=== PATIENT | male | born 1930 | race Caucasian/White ===

== ENCOUNTER 2017-04-02 03:36 | Emergency (ER) | payer OTHER ==
[~2017-04-02] VITALS: Ht 175.3 cm; Wt 63.6 kg
[~2017-04-02 03:36] MED LIST: AMLO-114 PO; ASPI81TA28; CHOL100010 PO; COUMADIN; DOCU1TAB6; FRRS300 PO; GLC500 PO; LISI-787 PO; NTRGSL/4 UT; OMEG10007 PO; OXYC7.5T78 PO; SOTA80TA
[2017-04-02 03:41] VITALS: Ht 175.3 cm; Wt 63.6 kg
[2017-04-02] MEDS ORDERED: SITA100T3 PO (04:14)
[2017-04-02] MEDS ORDERED: GABA-113 PO (04:14)
[2017-04-02] MEDS ORDERED: ROPI2TAB6 PO (04:14)
[2017-04-02] MEDS ORDERED: LOPE-5 PO (04:14)
[2017-04-02] MEDS ORDERED: GLC/500 PO (04:14)
[2017-04-02] MEDS ORDERED: WARF2TAB8 PO ×2 (04:14)
[2017-04-02] MEDS ORDERED: ATV/1 PO (04:14)
[2017-04-02] MEDS ORDERED: DOCU100C PO (04:14)
[2017-04-02] MEDS ORDERED: ASPI81TA28 PO (04:14)
[2017-04-02] MEDS ORDERED: NAPR1TAB9 PO (04:14)
[2017-04-02] MEDS ORDERED: METO25TA3 PO (04:14)
[2017-04-02] MEDS ORDERED: FERRTAB18 PO (04:14)
[2017-04-02] MEDS ORDERED: LSN5 PO (04:14)
[2017-04-02] MEDS ORDERED: [UNRECOGNIZED DRUG - OTHER] TD (04:14)
[2017-04-02] MEDS ORDERED: CYM/30 PO (04:14)
[2017-04-02] MEDS ORDERED: LIDO4CRE10 TD (04:14)
--- NOTE | 2017-04-02 04:18 | EMERGENCY ROOM VISIT NOTE ---
History Report prepared by Toro: Brittany Shen Under the Supervision of: Ravinder McdermottO. First contact with patient: 03:44 Chief Complaint: FALL Stated Complaint: FALL History of Present Illness The patient is a 86 year old male who presents to the Emergency Room with complaints of persistent trauma that occurred after the patient fell out of bed earlier tonight prior to arrival. The patient's states that the patient did not lose consciousness. He reports some back and neck pain, noting that he hit his head but is not experiencing much pain there. The patient is currently on Coumadin for atrial fibrillation. Source of History: patient Onset: tonight prior to arrival Position: other (global) Quality: other (fall) Timing: other (persistent) Associated Symptoms: + neck pain, + back pain Review of Systems See HPI for pertinent positives & negatives. A total of 10 systems reviewed and were otherwise negative. Past Medical & Surgical Medical Problems: (1) Aortic valve stenosis (2) Carotid artery occlusion (3) Coronary artery bypass grafts x 3 (4) Diabetes mellitus type 2 (5) Paroxysmal atrial fibrillation (6) Peripheral vascular disease Family History Patient reports no known family medical history. Social History Smoking Status: Never Smoker Smokeless Tobacco Use: No Alcohol Use: none Drug Use: none Marital Status: Housing Status: lives with significant other Occupation Status: retired Current/Historical Medications Scheduled Aspirin (Aspirin Ec), 81 MG PO QAM Docusate Sodium (Stool Softener), 100-200 MG PO BID Duloxetine HCl (Cymbalta), 30 MG PO QAM Gabapentin (Neurontin), 300 MG PO TID Iron-Vitamin C (Vitron-C), 1 TAB PO BID Lisinopril (Lisinopril), 5 MG PO QAM Metformin Hcl (Glucophage), 500 MG PO BID Metoprolol Succ (Toprol Xl) (Toprol-Xl), 25 MG PO QAM Ropinirole (Requip), 2 MG PO QPM Sitagliptin Phosphate (Januvia), 100 MG PO QAM Warfarin Sod (Jantoven), 6 MG PO 2XWK Warfarin Sod (Jantoven), 4 MG PO 4XWK Scheduled PRN Lidocaine (Anorectal) (Lidocaine), 1 APPLN TD HS PRN for Pain Loperamide Hcl (Imodium A-D), 2 MG PO DIRECTED PRN for Diarrhea Lorazepam (Ativan), 1 MG PO TID PRN for Anxiety/Agitation Naproxen (Aleve), 220 MG PO BID w/food PRN for Moderate Pain [Absorbine Jr Ex], 1 APPLN TD HS PRN for NEUROPATHY OF FEET Allergies Coded Allergies: Nortriptyline (Verified Allergy, Severe, CHEST PAIN-"BURNING FROM MID CHEST TO THROAT"., 04/02/17) Physical Exam Vital Signs Date Time Temp Pulse Resp B/P (MAP) Pulse Ox O2 Delivery O2 Flow Rate FiO2 04/02/17 07:25 187/85 04/02/17 07:15 69 16 96 04/02/17 06:46 192/89 04/02/17 06:45 69 13 97 04/02/17 05:58 73 16 92 Nasal Cannula 2.0 04/02/17 05:34 71 16 192/87 90 Room Air 04/02/17 03:57 76 16 194/93 90 Room Air 04/02/17 03:47 71 04/02/17 03:41 36.4 72 14 209/88 91 Room Air Physical Exam HEENT: Head - normocephalic and atraumatic. Pupils are equal, round, and reactive to light. Extraocular eye muscles are intact and sclera are anicteric. Ears - bilaterally patent canals with no evidence of hemotympanum. Nose - moist nasal mucosa without evidence of trauma or discharge. Mouth - moist buccal mucosa with no trauma to the teeth or signs of malocclusion. Neck: The cervical collar was temporarily removed while in-line stabilization was maintained. Pain to palpation around C2 and C3. There is no JVD or tracheal deviation. Chest: There are no signs of deformities, contusions or abrasions to the chest wall. There is no obvious crepitus or paradoxical chest rise. Heart: Regular, rate, and rhythm. There is a normal S1 and S2 with no murmurs, clicks, or gallops appreciated. Lungs: Clear to auscultation bilaterally with no wheezes, rales, or rhonchi. Abdomen: Soft, completely nontender, nondistended, with good bowel sounds. There is no sign of trauma such as contusions, abrasions or penetrations. There are no palpable pulsatile masses or hepatosplenomegaly. There is no guarding, rigidity, or rebound noted. Pelvis: Stable to rock and compression. Extremities: No obvious trauma, deformities, contusions, or edema. There are easily palpable peripheral pulses. Neuro: The patient is awake and alert and easily able to follow commands. Muscle strength is 5 out of 5 in all 4 extremities. Otherwise, neuro exam is unremarkable. Back: The entire thoracic, lumbar, and sacral spine were palpated. There are no obvious step-offs or deformities noted. There are no obvious signs of trauma such as contusions abrasions penetrations noted to the back. Medical Decision & Procedures ER Provider Diagnostic Interpretation: Radiology results as stated below per my review and the radiologist's interpretation: CT HEAD: No acute intracranial hemorrhage or mass effect. Chronic lacunar infarct right thalamus. Small region of encephalomalacia/ gliosis at left posterior frontal lobe, compatible with remote infarct. White matter hypodensities, most likely representing small vessel ischemic change. Global cerebral volume mass. Visualized paranasal sinuses and mastoid air cells are clear. CT C SPINE: Type II of the dens with posterior displacement measuring up to 6.7mm. Likely degenerative pannus posterior to the dens although components of epidural hematoma is not excluded. Combination of displacement and pannus causes moderate canal stenosis. Moderate multilevel degenerative changes. Carotid calcifications. Mild interlobular septal thickening at lung apices. Nonspecific, but correlate for CHF/fluid overload. Radiologist: Teo [id number]: Ordered Toradol Inj 60mg. Beni frias Laboratory Results 04/02/17 03:50 Test 04/02/17 03:50 Red Blood Count 3.91 M/uL (4.7-6.1) Mean Corpuscular Volume 92.1 fL (80-100) Mean Corpuscular Hemoglobin 31.5 pg (25-34) Mean Corpuscular Hemoglobin Concent 34.2 g/dl (32-36) RDW Standard Deviation 43.7 fL (36.4-46.3) RDW Coefficient of Variation 13.2 % (11.5-14.5) Mean Platelet Volume 10.0 fL (7.4-10.4) Prothrombin Time 33.3 SECONDS (9.0-12.0) Prothromb Time International Ratio 3.2 (0.9-1.1) Activated Partial Thromboplast Time 35.3 SECONDS (21.0-31.0) Partial Thromboplastin Ratio 1.4 Laboratory results per my review. Medications Administered Medications (Trade) Dose Ordered Sig/Rc Route Start Time Stop Time Status Last Admin Dose Admin Fentanyl Citrate (Fentanyl Inj) 50 mcg NOW ONCE IV 04/02/17 04:30 04/02/17 04:31 DC 04/02/17 04:30 50 MCG Hydromorphone HCl (Dilaudid Inj) 0.5 mg NOW STAT IV 04/02/17 05:51 04/02/17 05:52 DC 04/02/17 05:55 0.5 MG Procedure 0430: Ordered Fentanyl Inj 50mcg IV. 0551:Ordered Dilaudid Inj 0.5mg IV. ECG Per My Interpretation Indication: weakness Rate (beats per minute): 71 Rhythm: atrial fibrillation Findings: no acute ischemic change, no ectopy ED Course 0348: Past medical records reviewed. The patient was evaluated in room A12. A complete history and physical exam was performed. Laboratory studies were drawn as above. The patient had a CT scan of the brain and cervical spine as described above. 0430: Ordered Fentanyl Inj 50mcg IV. 0551: The patient had no relief of the pain with the above medications and I ordered Dilaudid Inj 0.5mg IV. 0554: Discussed the patient's case with Dr. Guerrero. He suggested transfer to a tertiary care center because of the fracture and displacement of the dens. 0612: Discussed the patient's case with Amber Perez. He has accepted the patient in transfer. The patient will be evaluated for further management. 0618: I reevaluated the patient and updated him and his son who is at the bedside on test findings. The patient states that he feels significantly better after the Dilaudid. He verbalized agreement of the treatment plan. Medical Decision The patient is a 86 year old male who presents to the ED with trauma secondary to a fall prior to arrival. Differential diagnosis includes intracranial hemorrhage, c-spine fracture, cervical strain, and close head injury. Laboratory results showed: I&R of 3.2, hemoglobin of 3.3, and a normal white blood cell count. This is an 86-year-old male patient who rolled out of bed and struck his head on the floor. He had no loss of consciousness. He does complain of severe posterior C-spine pain. CT scan shows evidence of a type II dens fracture with 5.7 mm of displacement posteriorly. The patient is neurologically intact. His pain in the neck is under better control with IV Dilaudid. The patient remains in a cervical collar and will be transferred by ALS ambulance to the emergency department in [place]. Medication Reconcilliation Current Medication List: was personally reviewed by me Blood Pressure Screening Patient's blood pressure: Elevated blood pressure Blood pressure disposition: Elevated BP felt to be situational Consults Time Called: 553 Consulting Physician: Dr. Guerrero Returned Call: 05 Discussed the patient's case with Dr. Guerrero. The patient will be evaluated for further management. Additional Consults: Time Called: 611 Consulted Physician: Returned Call: [phone] Additional Comments: Discussed the patient's case with Amber Perez. The patient will be evaluated for further management. Impression Primary Impression: Dens fracture Scribe Attestation The scribe's documentation has been prepared under my direction and personally reviewed by me in its entirety. I confirm that the note above accurately reflects all work, treatment, procedures, and medical decision making performed by me. Departure Information Dispostion Being Evaluated By Hospitalist Referrals Antonietta Mauricio P.A. (PCP) Forms HOME CARE DOCUMENTATION FORM, IMPORTANT VISIT INFORMATION Patient Instructions My [facility] Problem Qualifiers Primary Impression: Dens fracture Encounter type: initial encounter Fracture type: closed Qualified Codes: S12.100A - Unspecified displaced fracture of second cervical vertebra, initial encounter for closed fracture
[2017-04-02 04:20] LABS: HEMOGLOBIN 12.3 g/dL (14.0-18.0); MEAN CELL VOLUME 92.1 fL (80-100); MEAN CORPUSCULAR HEMOGLOBIN 31.5 pg (25-34); MEAN CORPUSCULAR HGB CONC 34.2 g/dl (32-36); PLATELET COUNT 217 K/uL (130-400); RED CELL DISTRIBUTION WIDTH CV 13.2 % (11.5-14.5); RED CELL DISTRIBUTION WIDTH SD 43.7 fL (36.4-46.3); WHITE BLOOD COUNT 8.17 K/uL (4.8-10.8)
[2017-04-02] MEDS ORDERED: FENTANYL CITRATE INJ 50 MCG/1 ML 2 ML VIAL IV ONE (04:30)
[2017-04-02 04:31] LABS: INR 3.2 (0.9-1.1); PTT PATIENT 35.3 SECONDS (21.0-31.0)
[2017-04-02] MEDS ORDERED: HYDROmorphone INJ 0.5 MG/0.5 ML SYR IV STA ×2 (05:51→07:41)
--- NOTE | 2017-04-02 06:46 | DIAGNOSTIC IMAGING REPORT ---
CT OF THE HEAD WITHOUT CONTRAST CLINICAL HISTORY: eval for trauma; on coumadin COMPARISON STUDY: No previous studies for comparison. TECHNIQUE: Helical axial images of the head were obtained without IV contrast. Automated exposure control was utilized for the study. A dose lowering technique was utilized adhering to the principles of ALARA. FINDINGS: No acute intracranial hemorrhage, midline shift or mass effect is present. Ventricular dilatation is due to atrophy. Basilar cisterns are patent. There are no extra-axial collections. White matter hypodensity suggests small vessel disease. There is an old lacunar infarct within the right thalamus. There is an old left frontal lobe infarct. There is no calvarial fracture. Visualized portions of the sinuses and mastoid air cells are clear. IMPRESSION: 1. No acute intracranial findings. 2. No calvarial fracture. Electronically signed by: Milton Starks M.D. 04/02/2017 6:44 AM Dictated Date/Time: 04/02/2017 6:42 AM
--- NOTE | 2017-04-02 07:31 | DIAGNOSTIC IMAGING REPORT ---
CERVICAL SPINE W/O CLINICAL HISTORY: 86 years-old Male presenting with fall; neck pain. TECHNIQUE: Multidetector CT of the cervical spine was performed without the use of intravenous contrast. IV contrast: None. A dose lowering technique was used consistent with the principles of ALARA (as low as reasonably achievable). COMPARISON: None. CT DOSE (mGy.cm): The estimated cumulative dose is 1076.27 mGy.cm. 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 The patient is edentulous. Transversely oriented fracture of the mid portion of the dens with at least 5 mm of posterior displacement of the superior fracture fragment along with the anterior arch of C1. There is resulting subluxation of the C1 to lateral masses articulation. Significant pannus formation at the atlantodental articulation, especially posteriorly. Due to the presence of calcification, this is most likely degenerative in etiology. Acute fracture and suspected degenerative change results in narrowing of the spinal canal at the level of C1. No additional acute fracture is evident. Remaining vertebral bodies demonstrate straightening of normal cervical lordosis. Vertebral body heights and alignment otherwise preserved. Intervertebral disc height loss noted at C4-5 through C6-7. Disc osteophyte complexes noted at every level. Mild posterior bony spurring noted to varying degrees at nearly every level. Varying degrees of osseous neural foraminal narrowing noted. Paraspinal musculature within normal limits. Nonspecific subcutaneous edema in the posterior cervical region. Atherosclerosis. Multiple nodules in the thyroid. Lung apices with interlobular septal thickening. IMPRESSION: 1. Type II acute fracture of the odontoid process/dens of C2 with at least 5 mm of posterior displacement of the superior fracture fragment and C1 vertebral body. This results in significant narrowing of the spinal canal at C1. This is considered an unstable fracture pattern. 2. Pannus formation at the atlantodental interval is most likely degenerative in etiology. However, MR could be obtained if clinically indicated to exclude the presence of a epidural hematoma. 3. Multilevel degenerative changes. 4. Preliminary findings were reported by Dr. Marrero at 5:[address] Peguero on 04/02/2017. Electronically signed by: Jerry Smith M.D. 04/02/2017 7:29 AM Dictated Date/Time: 04/02/2017 7:03 AM
[2017-04-02 08:41] VITALS: BP 156/85; PULSE 64; TEMP 36.4; O2SAT 93
== END 2017-04-02 08:35 | disposition short-term general hospital (02) ==
LOC: EDBD 03:36 → C.EDA 03:38
DX: S12.111A Posterior displaced Type II dens fracture, initial encounter for closed fracture (principal); W06.XXXA Fall from bed, initial encounter; Y92.013 Bedroom of single-family (private) house as the place of occurrence of the external cause; I48.91 Unspecified atrial fibrillation; E11.9 Type 2 diabetes mellitus without complications; I73.9 Peripheral vascular disease, unspecified; I35.0 Nonrheumatic aortic (valve) stenosis; Z95.1 Presence of aortocoronary bypass graft; Z79.01 Long term (current) use of anticoagulants; Z79.82 Long term (current) use of aspirin; Z79.899 Other long term (current) drug therapy; Z88.8 Allergy status to other drugs, medicaments and biological substances

== ENCOUNTER 2017-05-01 08:51 | Inpatient (IN) | payer OTHER ==
[2017-05-01] VITALS (7 sets, daily range): BP systolic 165–170; BP diastolic 67–81; PULSE 79–108; TEMP 36.7–36.8; O2SAT 86–99; BMI 18.5
[~2017-05-01] VITALS: Ht 170.2 cm; Wt 52.2 kg
[~2017-05-01 08:51] MED LIST changes: -AMLO-114 PO; -ASPI81TA28; +ASPI81TA28 PO; +ATV/1 PO; -CHOL100010 PO; -COUMADIN; +CYM/30 PO; +DOCU100C PO; -DOCU1TAB6; +FERRTAB18 PO; -FRRS300 PO; +GABA-113 PO; +GLC/500 PO; -GLC500 PO; +LIDO4CRE10 TD; -LISI-787 PO; +LOPE-5 PO; +LSN5 PO; +METO25TA3 PO; +NAPR1TAB9 PO; -NTRGSL/4 UT; -OMEG10007 PO; -OXYC7.5T78 PO; +ROPI2TAB6 PO; +SITA100T3 PO; -SOTA80TA; +WARF2TAB8 PO; +[UNRECOGNIZED DRUG - OTHER] TD
[2017-05-01] MEDS ORDERED: ONDANSETRON INJ 2 MG/ML 2 ML VIAL IV STA (09:01)
[2017-05-01] MEDS ORDERED: SODIUM CHLORIDE 0.9% 1000ML 1,000 ML IV STA (09:01)
[2017-05-01] MEDS ORDERED: INSDGI SC (09:29)
[2017-05-01] MEDS ORDERED: NVLG SQ (09:29)
[2017-05-01] MEDS ORDERED: MELA1TAB5 PO (09:29)
[2017-05-01] MEDS ORDERED: LEVO-366 PO (09:29)
[2017-05-01 09:40] LABS: HEMATOCRIT 37.9 % (42-52); HEMOGLOBIN 12.6 g/dL (14.0-18.0); IG# 0.02 K/uL (0.00-0.02); LYMPH % 9.6 %; LYMPH ABS # 0.77 K/uL (1.2-3.4); MEAN CELL VOLUME 93.1 fL (80-100); MEAN CORPUSCULAR HGB CONC 33.2 g/dl (32-36); MEAN PLATELET VOLUME 10.2 fL (7.4-10.4); MONO % 6.9 %; MONO ABS # 0.55 K/uL (0.11-0.59); NEUT % 83.3 %; NEUT ABS # 6.67 K/uL (1.4-6.5); PLATELET COUNT 187 K/uL (130-400); RED CELL DISTRIBUTION WIDTH CV 14.1 % (11.5-14.5); RED CELL DISTRIBUTION WIDTH SD 47.9 fL (36.4-46.3); WHITE BLOOD COUNT 8.01 K/uL (4.8-10.8)
[2017-05-01] MEDS ORDERED: OPTIRAY 320 IV PRN (09:45)
--- NOTE | 2017-05-01 09:48 | DIAGNOSTIC IMAGING REPORT ---
CHEST ONE VIEW PORTABLE CLINICAL HISTORY: EVALUATE ALTERED MENTAL STATUS/WEAKNESS COMPARISON STUDY: Chest radiograph July 05, 2010. FINDINGS: Median sternotomy wires are noted as well as a prosthetic cardiac valve. Cardiac mediastinal silhouette is stable. There is no pneumothorax or pleural effusion. There is asymmetric interstitial thickening within the right lung. Left lung is clear. IMPRESSION: Mild airspace opacity and interstitial thickening within the right lung which may reflect an infectious process. Asymmetric pulmonary edema could appear similar although is considered less likely. Electronically signed by: Milton Starks M.D. 05/01/2017 9:47 AM Dictated Date/Time: 05/01/2017 9:45 AM
[2017-05-01 09:49] LABS: INR 1.1 (0.9-1.1); PTT PATIENT 25.9 SECONDS (21.0-31.0)
[2017-05-01 09:58] LABS: ALBUMIN 2.6 gm/dl (3.4-5.0); ALT/SGPT 12 U/L (12-78); AST/SGOT 10 U/L (15-37); BLOOD UREA NITROGEN 42 mg/dl (7-18); CALCIUM 9.2 mg/dl (8.5-10.1); CARBON DIOXIDE 28 mmol/L (21-32); CREATININE 1.15 mg/dl (0.60-1.40); GLUCOSE 205 mg/dl (70-99); POTASSIUM 4.3 mmol/L (3.5-5.1); SODIUM 141 mmol/L (136-145)
[2017-05-01 10:09] LABS: ALKALINE PHOSPHATASE 93 U/L (45-117); TOTAL PROTEIN 7.8 gm/dl (6.4-8.2)
--- NOTE | 2017-05-01 11:14 | DIAGNOSTIC IMAGING REPORT ---
(CHEST FOR PE) ANGIO WITH CLINICAL HISTORY: 86 years-old Male presenting with recent neck fracture, hypoxic, syncope. TECHNIQUE: Multidetector CT angiography of the chest was performed after administration of intravenous contrast. 3-D volumetric and/or maximum intensity projection (MIP) images were subsequently reconstructed for review. IV contrast: 91 mL of Optiray 320. A dose lowering technique was used consistent with the principles of ALARA (as low as reasonably achievable). COMPARISON: Chest x-ray performed earlier the same day. CT DOSE (mGy.cm): The estimated cumulative dose is 215.58 mGy.cm. 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 Pulmonary vasculature: The study is suboptimal for the assessment of the pulmonary vascular tree secondary to respiratory motion artifact. Allowing for limited image quality, no central filling defect to suggest pulmonary embolus. Main pulmonary artery is not enlarged. No flattening of the interventricular septum. No intracardiac filling defect. Reflux of contrast into the IVC and hepatic veins. Remaining chest: On soft tissue windows, bilateral gynecomastia. Thyroid nodules suggested. Scattered subcentimeter mediastinal and hilar lymph nodes, likely reactive. The largest nodes are located in the subcarinal and aortopulmonary regions. Atherosclerosis of the aorta. Top normal heart size. Coronary artery calcification. Postsurgical changes of aortic valve replacement. Epicardial pacing wires noted. No pericardial or pleural effusion. Cholelithiasis. Significant splenic arterial and renovascular calcification. On lung windows, dependent consolidation in the bilateral lower lobes. Tree-in-bud groundglass opacities throughout the posterior segment of the right upper lobe as well as the right middle lobe. Evaluation of the lungs is significantly degraded by motion artifact, which limits diagnostic sensitivity. Bronchial wall thickening evident with significant segmental and subsegmental debris in the lower lobes. On bone windows, degenerative changes of the spine. IMPRESSION: 1. Dependent consolidation with extensive bronchial wall thickening and subsegmental lower lobe bronchial debris suggest aspiration. 2. Tree-in-bud opacities in the right upper and middle lobes suggest infectious bronchiolitis though this pattern can also be seen in the setting of aspiration. 3. Reactive hilar and mediastinal lymph nodes. 4. Allowing for suboptimal image quality, no evidence of pulmonary embolus. Electronically signed by: Jerry Smith M.D. 05/01/2017 11:12 AM Dictated Date/Time: 05/01/2017 11:06 AM
[2017-05-01] MEDS ORDERED: PIPERACILLIN/TAZOBACTAM 4.5 GM/100ML D5W IV STA (11:39)
[2017-05-01] MEDS ORDERED: ONDANSETRON INJ 2 MG/ML 2 ML VIAL IV PRN (13:00)
[2017-05-01] MEDS ORDERED: NITROGLYCERIN 0.4 MG SL PER TAB CHARGE SL PRN (13:00)
[2017-05-01] MEDS ORDERED: MAGNESIUM HYDROXIDE SUSP 30 ML UDC PO PRN (13:00)
[2017-05-01] MEDS ORDERED: LPR25 PO (13:14)
[2017-05-01] MEDS ORDERED: SITA50TA PO (13:14)
[2017-05-01] MEDS ORDERED: LEVALBUTEROL/IPRATROPIUM NEB INH PRN (13:15)
[2017-05-01] MEDS ORDERED: NYSCR30 EXT (13:19)
[2017-05-01] MEDS ORDERED: ONDA8TAB12 PO (13:19)
[2017-05-01] MEDS ORDERED: OXYC1TAB3 PO (13:19)
[2017-05-01] MEDS ORDERED: METOPROLOL TARTRATE 25 MG TAB PO STA (13:24)
[2017-05-01] MEDS ORDERED: LORAZEPAM 1 MG TAB PO PRN (13:30)
[2017-05-01] MEDS ORDERED: METOPROLOL TARTRATE 1 MG/ML VIAL IV STA (13:37)
[2017-05-01] MEDS ORDERED: VANCOMYCIN IV 1,250 MG in SODIUM CHLORIDE 0.9% 250ML 250 ML IV STA (13:43)
[2017-05-01] MEDS ORDERED: LEVALBUTEROL 0.63MG/3 ML NEB INH PRN (13:45)
[2017-05-01] MEDS ORDERED: VANCOMYCIN CONSULT ACTIVE PRN (13:45)
[2017-05-01] MEDS ORDERED: PIPERACILL/TAZOBAC CONSULT ACTIVE PRN (13:45)
[2017-05-01] MEDS ORDERED: IPRATROPIUM BROMIDE NEB SOLN 0.02% 2.5 ML VIAL INH PRN (13:45)
--- NOTE | 2017-05-01 13:56 | EMERGENCY ROOM VISIT NOTE ---
History Report prepared by [place]: Gwendolyn Mendez Under the Supervision of: Dr. Robert Josue D.O. First contact with patient: 08:54 Chief Complaint: RESPIRATORY PROBLEMS Stated Complaint: SYNCOPE History of Present Illness The patient is a 86 year old male who presents to the Emergency Room with complaints of a syncopal episode occurring just prior to arrival. Per nursing, The patient was sitting on his bed when the syncopal episode took place. The patient comes from [facility]. The patient was recently in [place] for a neck fracture. He was discharged from [place] on April 13. The patient has been on nasal cannula oxygen since being discharged from [place]. The patient reports a green productive cough beginning about two weeks ago. He reports a decreased appetite, nausea and vomiting. The patient's last bowel movement was this morning. The patient is on aspirin. Pt denies headache, change in vision, fevers , chest pain, shortness of breath, diarrhea, pain with urination, and melena. History is limited secondary to mentation. Source of History: patient, nursing staff Onset: this morning Position: other (generalized) Quality: other (syncopal) Timing: other (episode) Associated Symptoms: + cough, + nausea, + vomiting, No fevers, No chest pain , No SOB, No urinary symptoms Review of Systems See HPI for pertinent positives & negatives. A total of 10 systems reviewed and were otherwise negative. Past Medical & Surgical Medical Problems: (1) Anemia (2) Anxiety (3) Aortic valve stenosis (4) Aspiration pneumonia (5) Atrial fibrillation (6) Carotid artery occlusion (7) CKD (chronic kidney disease) (8) Coronary artery bypass grafts x 3 (9) Diabetes mellitus type 2 (10) Dyslipidemia (11) HTN (hypertension) (12) Paroxysmal atrial fibrillation (13) Peripheral vascular disease Surgical Problems: (1) History of lumbar surgery (2) History of tonsillectomy and adenoidectomy (3) Hx of aortic valve replacement (4) Hx of appendectomy (5) Hx of CABG (6) Hx of cardiac catheterization (7) Hx of cataract removal with insertion of prosthetic lens Family History Patient reports no known family medical history. Social History Smoking Status: Never Smoker Alcohol Use: none Drug Use: none Marital Status: Housing Status: lives with significant other Occupation Status: retired Current/Historical Medications Scheduled Aspirin (Aspirin Ec), 81 MG PO QAM Docusate Sodium (Stool Softener), 100 MG PO BID Duloxetine HCl (Cymbalta), 30 MG PO QAM Insulin Aspart (Novolog), 8 UNITS SQ TIDM Insulin Glargine (Lantus), 16 UNITS SC QPM Iron-Vitamin C (Vitron-C), 1 TAB PO BID Levofloxacin (Levaquin), 500 MG PO DAILY Melatonin (Kp Melatonin), 3 MG PO HS Metoprolol Tartrate (Lopressor), 25 MG PO BID Nystatin (Nystatin Cream), 0 EXT BID Ondansetron Hcl (Zofran), 8 MG PO Q8 Sitagliptin Phosphate (Januvia), 1 TAB PO DAILY Scheduled PRN Loperamide Hcl (Imodium A-D), 2 MG PO DIRECTED PRN for Diarrhea Lorazepam (Ativan), 1 MG PO TID PRN for Anxiety/Agitation Naproxen (Aleve), 220 MG PO BID w/food PRN for Moderate Pain Oxycodone Ir (Roxicodone Ir), 1 TAB PO Q4H PRN for Pain Allergies Coded Allergies: Nortriptyline (Verified Allergy, Severe, CHEST PAIN-"BURNING FROM MID CHEST TO THROAT"., 05/01/17) Physical Exam Vital Signs Date Time Temp Pulse Resp B/P (MAP) Pulse Ox O2 Delivery O2 Flow Rate FiO2 05/01/17 12:46 109 15 95 Nasal Cannula 3.0 05/01/17 12:30 95 Nasal Cannula 3.0 05/01/17 11:17 108 24 157/81 96 Nasal Cannula 3.0 05/01/17 09:04 108 05/01/17 09:01 97 Nasal Cannula 3.0 05/01/17 09:01 36.4 112 24 119/88 97 Nebulizer 6.0 Physical Exam GENERAL: Laying in bed, alert, ill and cachetic appearing, cervical collar in place, nasal cannula in place, no distress, non-toxic EYE EXAM: normal conjunctiva. OROPHARYNX: no exudate, no erythema, lips, buccal mucosa, and tongue normal and mucous membranes are moist NECK: supple, no nuchal rigidity, no adenopathy, non-tender LUNGS: Rhonchi bilaterally. Normal chest wall mechanics HEART: Tachycardic, irregular irregular. no murmurs, S1 normal and S2 normal ABDOMEN: abdomen soft, non-tender, normo-active bowel sounds, no masses, no rebound or guarding. BACK: Back is symmetrical on inspection and there is no deformity, no midline tenderness, no CVA tenderness. SKIN: no rashes and no bruising UPPER EXTREMITIES: upper extremities are grossly normal. LOWER EXTREMITIES: No pitting edema. NEURO EXAM: Awake, alert, oriented to person. Following commands, no focal deficit. 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 Pulmonary vasculature: The study is suboptimal for the assessment of the pulmonary vascular tree secondary to respiratory motion artifact. Allowing for limited image quality, no central filling defect to suggest pulmonary embolus. Main pulmonary artery is not enlarged. No flattening of the interventricular septum. No intracardiac filling defect. Reflux of contrast into the IVC and hepatic veins. Remaining chest: On soft tissue windows, bilateral gynecomastia. Thyroid nodules suggested. Scattered subcentimeter mediastinal and hilar lymph nodes, likely reactive. The largest nodes are located in the subcarinal and aortopulmonary regions. Atherosclerosis of the aorta. Top normal heart size. Coronary artery calcification. Postsurgical changes of aortic valve replacement. Epicardial pacing wires noted. No pericardial or pleural effusion. Cholelithiasis. Significant splenic arterial and renovascular calcification. On lung windows, dependent consolidation in the bilateral lower lobes. Tree-in-bud groundglass opacities throughout the posterior segment of the right upper lobe as well as the right middle lobe. Evaluation of the lungs is significantly degraded by motion artifact, which limits diagnostic sensitivity. Bronchial wall thickening evident with significant segmental and subsegmental debris in the lower lobes. On bone windows, degenerative changes of the spine. IMPRESSION: 1. Dependent consolidation with extensive bronchial wall thickening and subsegmental lower lobe bronchial debris suggest aspiration. 2. Tree-in-bud opacities in the right upper and middle lobes suggest infectious bronchiolitis though this pattern can also be seen in the setting of aspiration. 3. Reactive hilar and mediastinal lymph nodes. 4. Allowing for suboptimal image quality, no evidence of pulmonary embolus. Electronically signed by: Jerry Smith M.D. CHEST ONE VIEW PORTABLE FINDINGS: Median sternotomy wires are noted as well as a prosthetic cardiac valve. Cardiac mediastinal silhouette is stable. There is no pneumothorax or pleural effusion. There is asymmetric interstitial thickening within the right lung. Left lung is clear. IMPRESSION: Mild airspace opacity and interstitial thickening within the right lung which may reflect an infectious process. Asymmetric pulmonary edema could appear similar although is considered less likely. Electronically signed by: Milton Starks M.D. Laboratory Results 05/01/17 09:32 Red Blood Count 4.07, Mean Corpuscular Volume 93.1, Mean Corpuscular Hemoglobin 31.0, Mean Corpuscular Hemoglobin Concent 33.2, Mean Platelet Volume 10.2, Neutrophils (%) (Auto) 83.3, Lymphocytes (%) (Auto) 9.6, Monocytes (%) (Auto) 6.9, Eosinophils (%) (Auto) 0.0, Basophils (%) (Auto) 0.0, Neutrophils # (Auto) 6.67, Lymphocytes # (Auto) 0.77, Monocytes # (Auto) 0.55, Eosinophils # (Auto) 0.00, Basophils # (Auto) 0.00 05/01/17 09:32 Test 05/01/17 09:19 05/01/17 09:32 Bedside Glucose 208 mg/dl (70-99) White Blood Count 8.01 K/uL (4.8-10.8) Red Blood Count 4.07 M/uL (4.7-6.1) Hemoglobin 12.6 g/dL (14.0-18.0) Hematocrit 37.9 % (42-52) Mean Corpuscular Volume 93.1 fL (80-100) Mean Corpuscular Hemoglobin 31.0 pg (25-34) Mean Corpuscular Hemoglobin Concent 33.2 g/dl (32-36) Platelet Count 187 K/uL (130-400) Mean Platelet Volume 10.2 fL (7.4-10.4) Neutrophils (%) (Auto) 83.3 % Lymphocytes (%) (Auto) 9.6 % Monocytes (%) (Auto) 6.9 % Eosinophils (%) (Auto) 0.0 % Basophils (%) (Auto) 0.0 % Neutrophils # (Auto) 6.67 K/uL (1.4-6.5) Lymphocytes # (Auto) 0.77 K/uL (1.2-3.4) Monocytes # (Auto) 0.55 K/uL (0.11-0.59) Eosinophils # (Auto) 0.00 K/uL (0-0.5) Basophils # (Auto) 0.00 K/uL (0-0.2) RDW Standard Deviation 47.9 fL (36.4-46.3) RDW Coefficient of Variation 14.1 % (11.5-14.5) Immature Granulocyte % (Auto) 0.2 % Immature Granulocyte # (Auto) 0.02 K/uL (0.00-0.02) Prothrombin Time 11.4 SECONDS (9.0-12.0) Prothromb Time International Ratio 1.1 (0.9-1.1) Activated Partial Thromboplast Time 25.9 SECONDS (21.0-31.0) Partial Thromboplastin Ratio 1.0 Anion Gap 8.0 mmol/L (3-11) Estimated GFR () 65.5 Estimated GFR (Non- 56.5 BUN/Creatinine Ratio 36.9 (10-20) Calcium Level 9.2 mg/dl (8.5-10.1) Magnesium Level 2.0 mg/dl (1.8-2.4) Total Bilirubin 0.5 mg/dl (0.2-1) Direct Bilirubin 0.3 mg/dl (0-0.2) Aspartate Amino Transf (AST/SGOT) 10 U/L (15-37) Alanine Aminotransferase (ALT/SGPT) 12 U/L (12-78) Alkaline Phosphatase 93 U/L (45-117) Troponin I 0.026 ng/ml (0-0.045) Total Protein 7.8 gm/dl (6.4-8.2) Albumin 2.6 gm/dl (3.4-5.0) Thyroid Stimulating Hormone (TSH) 0.167 uIu/ml (0.300-4.500) Laboratory results per my review. Medications Administered Medications (Trade) Dose Ordered Sig/Rc Route Start Time Stop Time Status Last Admin Dose Admin Sodium Chloride 1,000 ml @ 999 mls/hr Q1H1M STAT IV 05/01/17 09:01 05/01/17 10:01 DC 05/01/17 09:39 999 MLS/HR Ondansetron HCl (Zofran Inj) 4 mg NOW STAT IV 05/01/17 09:01 05/01/17 09:03 DC 05/01/17 09:39 4 MG Piperacillin Sod/ Tazobactam Sod (Zosyn Iv) 4.5 gm NOW STAT IV 05/01/17 11:39 05/01/17 11:41 DC 05/01/17 12:01 4.5 GM ECG Per My Interpretation Indication: syncope Rate (beats per minute): 115 Rhythm: atrial fibrillation (with RVR) Findings: peaked T-waves, other (normal axis) ED Course ED COURSE: Vital signs were reviewed and showed tachycardic The patients medical record was reviewed The above diagnostic studies were performed and reviewed. ED treatments and interventions as stated above. 0856: The patient was evaluated in room B4B. A complete history and physical examination was performed. 0901: Ordered Zofran Inj 4 mg IV, Sodium Chloride 1000 ml @ 999 mls/hr IV. 1139: Ordered Zosyn IV 4.5 gm IV. 1142: I updated the patient on his test results. 1149: Discussion with nursing staff on phone. They report the patient was just started using oxygen on April 29. 1154: I reviewed the patient's case with Alessia Meyer. She will evaluate the patient for further management. []: Upon reevaluation, the patient is [].I discussed my findings with the [ patient] and [] understands and agrees with the treatment plan. Based on the patients age, coexisting illnesses, exam and lab findings the decision to treat as an [inpatient][outpatient] was made. The patient remained stable while under my care. [The patient appeared well at the time of discharge.] [The patient will be evaluated for further management.] Medical Decision Differential diagnosis includes etiologies such as vasovagal event, infection, hypoglycemia, electrolyte abnormalities, cardiac sources, intracerebral event, toxicologic, neurologic, as well as others were entertained. Patient is an 86-year-old male who presents the ER for a syncopal episode occurring at the custodial. Patient was recently discharged from [facility]. Not on oxygen. Patient was placed on oxygen several days ago. He was also placed on Levaquin and treated for pneumonia. CBC along with BMP shows hyperglycemia. LFTs and bilirubin was unremarkable. Troponin was detectable but not positive. Imaging shows aspiration pneumonia. Based on his new oxygen requirements and CT I give the patient IV antibiotics. He was admitted to internal medicine for aspiration pneumonia. Medication Reconcilliation Current Medication List: was personally reviewed by me Blood Pressure Screening Patient's blood pressure: Normal blood pressure Consults Time Called: 1130 Consulting Physician: Alessia Meyer Returned Call: 1154 I reviewed the patient's case with Alessia Meyer. She will evaluate the patient for further management. Impression Primary Impression: Aspiration pneumonia Additional Impression: Syncope Scribe Attestation The scribe's documentation has been prepared under my direction and personally reviewed by me in its entirety. I confirm that the note above accurately reflects all work, treatment, procedures, and medical decision making performed by me. Departure Information Dispostion Being Evaluated By Hospitalist Referrals Kashif Cullen M.D. (PCP) Patient Instructions My [facility] Problem Qualifiers Primary Impression: Aspiration pneumonia Aspiration pneumonia type: unspecified Laterality: unspecified laterality Lung location: unspecified part of lung Qualified Codes: J69.0 - Pneumonitis due to inhalation of food and vomit Additional Impression: Syncope Syncope type: unspecified Qualified Codes: R55 - Syncope and collapse
[2017-05-01] MEDS ORDERED: GLUCOSE 10 TABS/TUBE PO PRN (14:00)
[2017-05-01] MEDS ORDERED: GLUCAGON FOR INJ 1 MG VIAL SQ PRN (14:00)
[2017-05-01] MEDS ORDERED: DEXTROSE 50% 50 ML SYR IV PRN (14:00)
[2017-05-01] MEDS ORDERED: GLUCOSE 40% GEL 15 GM TUBE PO PRN (14:00)
--- NOTE | 2017-05-01 14:33 | DIAGNOSTIC IMAGING REPORT ---
CT OF THE HEAD WITHOUT CONTRAST CLINICAL HISTORY: Syncope. COMPARISON STUDY: Head CT April 02, 2017. CT DOSE: 810.83 mGy.cm TECHNIQUE: Helical axial images of the head were obtained without IV contrast. Automated exposure control was utilized for the study. A dose lowering technique was utilized adhering to the principles of ALARA. FINDINGS: Intravenous contrast is from recent contrast-enhanced CT. Ventricular dilatation is unchanged and likely due to atrophy. The basilar cisterns are patent. There are no extra axial collections. A small left frontal lobe infarct is noted. White matter hypodensity suggests small vessel disease. There are no findings to suggest acute dural sinus thrombosis or acute territorial infarct. There are no significant calvarial abnormalities. Visualized portions of the sinuses and the mastoid air cells are clear. IMPRESSION: No acute intracranial findings. Electronically signed by: Milton Starks M.D. 05/01/2017 2:32 PM Dictated Date/Time: 05/01/2017 2:28 PM
[2017-05-01] MEDS ORDERED: LEVALBUTEROL/IPRATROPIUM NEB INH SCH (15:00)
--- NOTE | 2017-05-01 15:35 | Pharmacy Progress Note ---
Pharmacy Abx Initial Consult Date of Service May 01, 2017. Pharmacy Dosing Scope Date of Consult: 05/01/17 Consultation requested by: Alessia Solis Pharmacy is consulted to initiate IV Zosyn/Vancomycin dosing therapy, order appropriate labs and adjust drug dose/frequency. Subjective The patient is a 86 year old male admitted on May 01, 2017 at 13:00 from [facility]. He has been being treated with Levaquin for possible Pneumonia. He has a syncopal episode while sitting on his bed. He most recently had been discharged from [facility] with a neck fracture. He is admitted here with diagnosis of aspiration PNX (HCAP) and started on broad spectrum abx consisting of Zosyn and Vancomycin. Objective Height (Feet): 5 Height (Inches): 7.00 Weight (Kilograms): 53.640 Vital Signs (Past 12Hrs) Vital Signs Past 12 Hours Date Time Temp Pulse Resp B/P (MAP) Pulse Ox O2 Delivery O2 Flow Rate FiO2 05/01/17 14:50 36.9 102 20 144/77 96 05/01/17 14:07 107 17 146/94 94 Nasal Cannula 3.0 05/01/17 14:06 107 146/94 05/01/17 13:46 112 21 155/84 91 Nasal Cannula 3.0 05/01/17 12:46 109 15 95 Nasal Cannula 3.0 05/01/17 12:30 95 Nasal Cannula 3.0 05/01/17 11:17 108 24 157/81 96 Nasal Cannula 3.0 05/01/17 09:04 108 05/01/17 09:01 97 Nasal Cannula 3.0 05/01/17 09:01 36.4 112 24 119/88 97 Nebulizer 6.0 Lab Results (24Hrs) Laboratory Tests (24 Hours) Test 05/01/17 09:32 White Blood Count 8.01 K/uL (4.8-10.8) Red Blood Count 4.07 M/uL (4.7-6.1) L Hemoglobin 12.6 g/dL (14.0-18.0) L Hematocrit 37.9 % (42-52) L Mean Corpuscular Volume 93.1 fL (80-100) Mean Corpuscular Hemoglobin 31.0 pg (25-34) Mean Corpuscular Hemoglobin Concent 33.2 g/dl (32-36) Platelet Count 187 K/uL (130-400) Mean Platelet Volume 10.2 fL (7.4-10.4) Neutrophils (%) (Auto) 83.3 % Lymphocytes (%) (Auto) 9.6 % Monocytes (%) (Auto) 6.9 % Eosinophils (%) (Auto) 0.0 % Basophils (%) (Auto) 0.0 % Neutrophils # (Auto) 6.67 K/uL (1.4-6.5) H Lymphocytes # (Auto) 0.77 K/uL (1.2-3.4) L Monocytes # (Auto) 0.55 K/uL (0.11-0.59) Eosinophils # (Auto) 0.00 K/uL (0-0.5) Basophils # (Auto) 0.00 K/uL (0-0.2) Micro Results Date/Time Source Procedure Growth Status 05/01/17 13:05 Blood Blood Culture Pending Ordered 05/01/17 13:05 Blood Blood Culture Pending Ordered 05/01/17 11:10 Urine,Catheterized Urine Culture Pending Received Risk Factors for Resistance * Resident in a chcf or extended-care facility * Hospitalization for 48 hours or more within the past 90 days * Antimicrobial use within the last 90 days: Levaquin Assessment & Plan Assessment 86 year old male with HCAP Plan Vancomycin IV * Loading dose: 1250 mg (23 mg/kg) * Maintenance dose: 750 mg IV (14 mg/kg) every 24 hours * Goal trough level : 15-20 mcg/mL * Trough level ordered prior to 1400 dose on 05/04/17 * I estimated his half life at about 21 hours with current renal function Piperacillin/tazobactam * 4.5 g bolus administered over 30 minutes, then 3.375 g IV extended infusion every 8 hours for CrCl greater than 20 mL/min Pharmacy will continue to follow and will adjust dose/frequency as necessary. Thank you.
[2017-05-01] MEDS: IPRATROPIUM BROMIDE NEB SOLN 0.02% 2.5 ML VIAL INH SCH ×2 (16:10→19:26)
[2017-05-01] MEDS: LEVALBUTEROL 1.25MG/0.5ML NEB INH SCH ×2 (16:10→19:22)
[2017-05-01 16:19] LABS: INFLUENZA A PCR Neg for Influ A (NEG); INFLUENZA B PCR Neg for Influ B (NEG)
[2017-05-01] MEDS: INSULIN ASPART 100 UNITS/ML 3 ML PEN SC SCH ×2 (17:14→20:21)
--- NOTE | 2017-05-01 17:26 | History and Physical ---
History & Physical Date & Time of Service: May 01, 2017 at 13:19 Chief Complaint: Syncope Primary Care Physician: Kashif Cullen M.D. History of Present Illness Source: patient, family, clinic records, hospital records Pt is 86 y/o M with PMH A-fib, DM II, CAD s/p CABG, S/S/P aortic valve replacement, PVD, anxiety, dyslipidemia, HTN, BPH resented to ER from [facility] with complaint syncope, cough. It is reported that patient was having physical therapy this morning and he was sitting on edge of bed when he was unresponsive for approximately 5 seconds. When asked patient if he remembers events this morning or if he had any syncopal episodes, he reports that he was tired of doing physical therapy. Pt denies vision changes, paresthesias, extremity weakness, speech changes. 04/02/17 Pt sent from [facility] to [facility] after fall out of bed and type II odontoid fracture. It was treated conservatively with Bard J collar. In hospital patient developed pneumonia MSSA and Enterobacter cloacae, treated with vancomycin patient was discharged on Bactrim. Reported the patient also developed delirium. He started on Risperdal. Pt was taken off his coumadin for a -fib by cardiology. 04/13/17 patient discharged to [facility]. Risperdal has since been discontinued. Patient recently had his metformin discontinued and yesterday was started on NovoLog 8 units 3 times daily. Patient is on pureed diet, [place] thick since d/c from [facility], had videofluro during admission showed was not aspirating at that time. It is reported a couple of days ago pt was drinking Mountain Dew that was not thickened. Pt doesn't feel he needs thickened liquids , however he does admit that he sometimes chokes. Pt reports nausea and intermittent vomiting. He has been given Zofran at without much relief. He reports for past month has not been eating and drinking much and reports weight loss, unsure the amount. Reports generalized weakness for past month. Pt with cough productive yellow sputum x 1 week. Reported fever 102F on 04/27/17 at and had reported negative CXR at that time and was started on albuterol nebs. Past 2 days with increased cough and reported lower O2 sats. Family reports thinks increased cough after pt drank mountain dew. Patient reports intermittent frontal headache since his C-spine fracture. Denies any worsening. Using oxycodone prn pain to neck. Pt did not receive his metoprolol this morning, did receive diltiazem. Denies diaphoresis, hematemesis, hematochezia, melena, constipation, diarrhea, dizziness, syncope, vision changes, CP, SOB, orthopnea, palpitations, hemoptysis , sore throat, otalgia, rhinorrhea, abdominal pain, paresthesias, extremity edema, rashes, urinary symptoms. Past Medical/Surgical History Medical Problems: (1) Anemia Status: Chronic (2) Anxiety Status: Chronic (3) Aortic valve stenosis Status: Chronic (4) Atrial fibrillation Status: Chronic (5) Carotid artery occlusion Status: Chronic (6) CKD (chronic kidney disease) Status: Chronic (7) Coronary artery bypass grafts x 3 Permanent Comment: 2002 Status: Chronic (8) Diabetes mellitus type 2 Status: Chronic (9) Dyslipidemia Status: Chronic (10) HTN (hypertension) Status: Chronic (11) Paroxysmal atrial fibrillation Status: Chronic (12) Peripheral vascular disease Status: Chronic Surgical Problems: (1) History of lumbar surgery Permanent Comment: 2000 - lumbar hemilaminectomy, ecxision right L3-4, herniated nucleus pulposis Status: Resolved (2) History of tonsillectomy and adenoidectomy Status: Resolved (3) Hx of aortic valve replacement Permanent Comment: 10/2010 - Dr Moncada - [facility] Status: Resolved (4) Hx of appendectomy Status: Resolved (5) Hx of CABG Permanent Comment: 2002 vessel, [facility] Status: Resolved (6) Hx of cardiac catheterization Permanent Comment: 100% mid RCA stenosis, 100% L CIRC and 30-40% LAD, SVGs patent Status: Resolved (7) Hx of cataract removal with insertion of prosthetic lens Status: Resolved Family History FH: colon cancer Social History Smoking Status: Former Smoker (Pt reports quit 1 month ago, was smoking 0.25ppd x 65 years) Smokeless Tobacco Use: No Alcohol Use: none Drug Use: none Marital Status: Housing status: other ([facility]) Occupational Status: retired Immunizations History of Influenza Vaccine: Yes History of Tetanus Vaccine?: Yes History of Pneumococcal: Yes History of Hepatitis B Vaccine: No Allergies Coded Allergies: Nortriptyline (Verified Allergy, Severe, CHEST PAIN-"BURNING FROM MID CHEST TO THROAT"., 05/01/17) Home Medications Scheduled Aspirin (Aspirin Ec), 81 MG PO QAM Docusate Sodium (Stool Softener), 100 MG PO BID Duloxetine HCl (Cymbalta), 30 MG PO QAM Insulin Aspart (Novolog), 8 UNITS SQ TIDM Insulin Glargine (Lantus), 16 UNITS SC QPM Iron-Vitamin C (Vitron-C), 1 TAB PO BID Levofloxacin (Levaquin), 500 MG PO DAILY Melatonin (Kp Melatonin), 3 MG PO HS Metoprolol Tartrate (Lopressor), 25 MG PO BID Nystatin (Nystatin Cream), 0 EXT BID Ondansetron Hcl (Zofran), 8 MG PO Q8 Sitagliptin Phosphate (Januvia), 1 TAB PO DAILY Scheduled PRN Loperamide Hcl (Imodium A-D), 2 MG PO DIRECTED PRN for Diarrhea Lorazepam (Ativan), 1 MG PO TID PRN for Anxiety/Agitation Naproxen (Aleve), 220 MG PO BID w/food PRN for Moderate Pain Oxycodone Ir (Roxicodone Ir), 1 TAB PO Q4H PRN for Pain Review of Systems Constitutional: + fever (see HPI), + weight loss Eyes: No worsening of vision, No eye pain, No redness, No discharge, No diplopia ENT: + trouble swallowing (see HPI), No unusual epistaxis, No nasal symptoms, No sore throat, No tinnitus Respiratory: + cough (see HPI), No shortness of breath, No hemoptysis Cardiovascular: + problem reported, No chest pain, No orthopnea, No PND, No edema, No palpitations Abdomen: No pain, No nausea, No vomiting, No diarrhea, No constipation, No GI bleeding Musculoskeletal: + joint pain (neck pain - hx c-spine fx), No swelling, No calf pain Genitourinary - Male: No hematuria, No dysuria, No urinary frequency, No urinary urgency Neurologic: No paralysis, No numbness/tingling, No vertigo Psychiatric: No depression symptoms, No anxiety Hematologic / Lymphatic: No abnormal bleeding/bruising, No clotting problems Integumentary: + rash (penis - being treated for quique) Physical Exam Vital Signs Date Time Temp Pulse Resp B/P (MAP) Pulse Ox O2 Delivery O2 Flow Rate FiO2 05/01/17 12:46 109 15 95 Nasal Cannula 3.0 05/01/17 12:30 95 Nasal Cannula 3.0 05/01/17 11:17 108 24 157/81 96 Nasal Cannula 3.0 05/01/17 09:04 108 05/01/17 09:01 97 Nasal Cannula 3.0 05/01/17 09:01 36.4 112 24 119/88 97 Nebulizer 6.0 General Appearance: + thin, + pertinent finding (chronic ill appearing) Head: normocephalic, atraumatic Eyes: normal inspection, PERRL, EOMI, sclerae normal ENT: hearing grossly normal, pharynx normal, + pertinent finding (muocus membranes dry) Neck: trachea midline, + pertinent finding (C-collar in place) Respiratory/Chest: chest non-tender, no respiratory distress, no accessory muscle use, + rhonchi (scattered throughout) Cardiovascular: no murmur, normal peripheral pulses, + irregularly irregular Abdomen/GI: normal bowel sounds, non tender, soft Extremities/Musculoskelatal: no calf tenderness, normal capillary refill, no pedal edema, non-tender, + pertinent finding (pedal pushes, pulls intact, flexion and extension of knees) Neurologic/Psych: alert, normal mood/affect, oriented x 3 Skin: warm/dry, + pertinent finding (sacrum with erythema, glans of penis with erythema, no urethral discharge noted) Diagnostics Laboratory Results Results Past 24 Hours Test 05/01/17 09:19 05/01/17 09:32 Range/Units Bedside Glucose 208 70-99 mg/dl White Blood Count 8.01 4.8-10.8 K/uL Red Blood Count 4.07 4.7-6.1 M/uL Hemoglobin 12.6 14.0-18.0 g/dL Hematocrit 37.9 42-52 % Mean Corpuscular Volume 93.1 80-100 fL Mean Corpuscular Hemoglobin 31.0 25-34 pg Mean Corpuscular Hemoglobin Concent 33.2 32-36 g/dl Platelet Count 187 130-400 K/uL Mean Platelet Volume 10.2 7.4-10.4 fL Neutrophils (%) (Auto) 83.3 % Lymphocytes (%) (Auto) 9.6 % Monocytes (%) (Auto) 6.9 % Eosinophils (%) (Auto) 0.0 % Basophils (%) (Auto) 0.0 % Neutrophils # (Auto) 6.67 1.4-6.5 K/uL Lymphocytes # (Auto) 0.77 1.2-3.4 K/uL Monocytes # (Auto) 0.55 0.11-0.59 K/uL Eosinophils # (Auto) 0.00 0-0.5 K/uL Basophils # (Auto) 0.00 0-0.2 K/uL RDW Standard Deviation 47.9 36.4-46.3 fL RDW Coefficient of Variation 14.1 11.5-14.5 % Immature Granulocyte % (Auto) 0.2 % Immature Granulocyte # (Auto) 0.02 0.00-0.02 K/uL Prothrombin Time 11.4 9.0-12.0 SECONDS Prothromb Time International Ratio 1.1 0.9-1.1 Activated Partial Thromboplast Time 25.9 21.0-31.0 SECONDS Partial Thromboplastin Ratio 1.0 Sodium Level 141 136-145 mmol/L Potassium Level 4.3 3.5-5.1 mmol/L Chloride Level 105 98-107 mmol/L Carbon Dioxide Level 28 21-32 mmol/L Anion Gap 8.0 3-11 mmol/L Blood Urea Nitrogen 42 7-18 mg/dl Creatinine 1.15 0.60-1.40 mg/dl Estimated GFR () 65.5 Estimated GFR (Non- 56.5 BUN/Creatinine Ratio 36.9 10-20 Random Glucose 205 70-99 mg/dl Calcium Level 9.2 8.5-10.1 mg/dl Magnesium Level 2.0 1.8-2.4 mg/dl Total Bilirubin 0.5 0.2-1 mg/dl Direct Bilirubin 0.3 0-0.2 mg/dl Aspartate Amino Transf (AST/SGOT) 10 15-37 U/L Alanine Aminotransferase (ALT/SGPT) 12 12-78 U/L Alkaline Phosphatase 93 45-117 U/L Troponin I 0.026 0-0.045 ng/ml Total Protein 7.8 6.4-8.2 gm/dl Albumin 2.6 3.4-5.0 gm/dl Thyroid Stimulating Hormone (TSH) 0.167 0.300-4.500 uIu/ml Microbiology Results 05/01/17 Blood Culture, Ordered Pending 05/01/17 Blood Culture, Ordered Pending 05/01/17 Urine Culture, Received Pending Diagnostic Radiology CT HEAD: IMPRESSION: No acute intracranial findings. CXR: IMPRESSION: Mild airspace opacity and interstitial thickening within the right lung which may reflect an infectious process. Asymmetric pulmonary edema could appear similar although is considered less likely. CT CHEST: IMPRESSION: 1. Dependent consolidation with extensive bronchial wall thickening and subsegmental lower lobe bronchial debris suggest aspiration. 2. Tree-in-bud opacities in the right upper and middle lobes suggest infectious bronchiolitis though this pattern can also be seen in the setting of aspiration. 3. Reactive hilar and mediastinal lymph nodes. 4. Allowing for suboptimal image quality, no evidence of pulmonary embolus. EKG EKG: a-fib, rvr, rate 155 Read by cardiology: Atrial fibrillation with rapid ventricular response with premature ventricular or aberrantly conducted complexes Low voltage QRS Abnormal ECG When compared with ECG of 02-APR-2017 03:46, Vent. rate has increased BY 44 BPM Confirmed by CAL FAIR ([id number]) on 05/01/2017 2:55:31 PM Impression Assessment and Plan ASPIRATION PNEUMONIA Pt with reports choking, is to be on pureed diet and nectar thickened liquids. Pt drank non-thickened soda couple of days ago. Possible HCAP with recent hospital admission and from [facility]. In ER given Zosyn, zofran, NSS 1L. CT CHEST: IMPRESSION:1. Dependent consolidation with extensive bronchial wall thickening and subsegmental lower lobe bronchial debris suggest aspiration. 2. Tree-in-bud opacities in the right upper and middle lobes suggest infectious bronchiolitis though this pattern can also be seen in the setting of aspiration. 3. Reactive hilar and mediastinal lymph nodes. 4. Allowing for suboptimal image quality, no evidence of pulmonary embolus. -blood cultures -MRSA swab -influenza swab -sputum culture -vancomycin, zosyn -aspiration precautions -speech eval -supplemental oxygen per protocol -flutter valve -xopenex/atrovent nebs -IVF ?SYNCOPE Reported pt with 5 seconds of being unresponsive while sitting on edge of bed doing therapy at [facility]. Negative CT head. -U/A pending -monitor CHRONIC A-FIB Coumadin d/c at [facility]. Rate low 100's today in ER. Pt given 1L NSS in ER. Pt appears dry and did not take his metoprolol this morning. magnesium: 2.0 -Lopressor given -continue diltiazem and metoprolol, ASA -trend troponin -monitor BALANITIS -continue nystatin DM II HA1c was 7.3 on 04/27/17. -hold Januvia -Basal, bolus insulin per protocol Hx ODONTOID FRACTURE S/P fall out of bed on 04/02/17. Pt in [facility], treated conservatively with c-collar -continue c-collar use -continue oxycodone prn pain ABNORMAL TSH TSH: 0.167 -pending T4 ANXIETY -continue Cymbalta -continue Ativan prn -monitor for delirium CAD S/P CABG No CP -continue ASA DVT Prophylaxis -Heparin SQ Disposition admit tele Full Code as per discussion with pt Follows with Dr Cullen for routine care Pt was seen with Dr Aguila. See addendum Attending Note: Patient is an 86 yr male with multiple comorbidities presents from [facility] with history of nausea, vomiting, cough and symptoms suggestive of choking like episodes with food (both liquids and solids) intake. Patient developed respiratory failure at [facility] and was treated with Levaquin for 2 days and started on Oxygen. Patient admits to drinking thin liquids despite being on nectar thick liquids which could have contributed to aspiration. His Chest CT was suggestive of Aspiration Pneumonia and bronchiolitis. Patient also had a possible syncopal event as per Staff at [facility] but patient denies the same. Please review HPI for complete details. Physical Exam: Vitals signs as noted above General Appearance:Thin, Frail, no apparent distress Head: normocephalic, Atraumatic, +Neck collar Eyes: normal inspection, EOMI, PERRL Neck: supple, Trachea midline Respiratory/Chest: Decreased breath sounds, B/L Rhonchi Cardiovascular:Irregularly, Irregular, No murmur Abdomen/GI:Soft, Non tender, Bowel sounds present Extremities/Musculoskelatal:normal inspection, no edema Neurologic/Psych:AAOX3, grossly no focal neurological deficits Skin:normal color,warm Assessment and Plan: Acute Respiratory Failure Aspiration Pneumonia Bronchiolitis Current Tobacco use but no H/O COPD Start IV Abx Speech eval Aspiration precautions Continue Oxygen support Nebs Follow up Cultures Pulmonary toilet Low TSH Normal Free T4 Will need repeat Thyroid function tests as outpatient I personally reviewed the record. Patient is interviewed and examined at bedside. Patient's care is coordinated with Alessia Solis PA-C. Please refer to the documentation above for details of patient's presentation and for discussion of other issues. Advanced Directives Existing Living Will: No Existing Power of Facility Technician: No Resuscitation Status Full Code VTE Prophylaxis Will order VTE Prophylaxis: Yes Additional Copies To Kashif Cullen M.D.
[2017-05-01] MEDS: PIPERACILL/TAZOBAC IV 3.375 GM in DEXTROSE 5% 100ML IV SCH (17:33)
[2017-05-01] MEDS: SODIUM CHLORIDE 0.9% 1000ML 1,000 ML IV SCH (17:35)
[2017-05-01] MEDS: NYSTATIN CR 15 GM TUBE EXT SCH (20:42)
[2017-05-01] MEDS: METOPROLOL TARTRATE 25 MG TAB PO SCH (20:43)
[2017-05-01] MEDS: DOCUSATE SODIUM 100 MG CAP PO SCH (20:43)
[2017-05-01] MEDS: HEPARIN SOD 5000 UNIT/0.5 ML CARP SQ SCH (20:44)
[2017-05-01] MEDS: INSULIN GLARGINE SOLOSTAR 100 UNITS/ML 3 ML PEN SC SCH (20:44)
[2017-05-01] MEDS ORDERED: DILT40TA PO (20:57)
[2017-05-01] MEDS ORDERED: NON-FORMULARY MEDICATION (Melatonin (Kp Melatonin) 3 MG) PO SCH (21:00)
[2017-05-01] MEDS ORDERED: NON-FORMULARY MEDICATION (Iron-Vitamin C (Vitron-C) 1 TAB) PO SCH (21:00)
[2017-05-01] MEDS: DILTIAZEM HCL 60 MG TAB PO SCH (22:29)
[2017-05-02] VITALS (10 sets, daily range): BP systolic 113–174; BP diastolic 57–83; PULSE 72–112; TEMP 36.3–36.8; O2SAT 91–98
[2017-05-02] MEDS: LEVALBUTEROL 1.25MG/0.5ML NEB INH SCH ×4 (01:45→20:05)
[2017-05-02] MEDS: IPRATROPIUM BROMIDE NEB SOLN 0.02% 2.5 ML VIAL INH SCH ×4 (01:45→20:05)
[2017-05-02] MEDS: PIPERACILL/TAZOBAC IV 3.375 GM in DEXTROSE 5% 100ML IV SCH ×3 (02:14→17:29)
[2017-05-02] MEDS: DILTIAZEM HCL 60 MG TAB PO SCH ×4 (05:09→21:00)
[2017-05-02] MEDS: INSULIN ASPART 100 UNITS/ML 3 ML PEN SC SCH ×4 (07:00→21:00)
[2017-05-02 07:18] LABS: HEMATOCRIT 35.5 % (42-52); HEMOGLOBIN 11.6 g/dL (14.0-18.0); MEAN CELL VOLUME 92.4 fL (80-100); MEAN CORPUSCULAR HEMOGLOBIN 30.2 pg (25-34); MEAN CORPUSCULAR HGB CONC 32.7 g/dl (32-36); MEAN PLATELET VOLUME 10.2 fL (7.4-10.4); PLATELET COUNT 179 K/uL (130-400); RED CELL DISTRIBUTION WIDTH CV 14.4 % (11.5-14.5); WHITE BLOOD COUNT 7.11 K/uL (4.8-10.8)
[2017-05-02 07:45] LABS: CREATININE 0.97 mg/dl (0.60-1.40); POTASSIUM 3.6 mmol/L (3.5-5.1)
[2017-05-02] MEDS: DULOXETINE (CYMBALTA) 30 MG CAP PO SCH (07:46)
[2017-05-02] MEDS: METOPROLOL TARTRATE 25 MG TAB PO SCH ×2 (07:46→21:00)
[2017-05-02] MEDS: DOCUSATE SODIUM 100 MG CAP PO SCH ×2 (07:47→21:00)
[2017-05-02] MEDS: ASPIRIN 81 MG ECTAB PO SCH (07:47)
[2017-05-02] MEDS: HEPARIN SOD 5000 UNIT/0.5 ML CARP SQ SCH ×2 (07:48→21:00)
[2017-05-02] MEDS: INSULIN GLARGINE SOLOSTAR 100 UNITS/ML 3 ML PEN SC SCH ×2 (07:48→21:00)
[2017-05-02] MEDS: NYSTATIN CR 15 GM TUBE EXT SCH ×2 (07:49→21:00)
[2017-05-02] MEDS: SODIUM CHLORIDE 0.9% 1000ML 1,000 ML IV SCH ×2 (07:50→20:00)
[2017-05-02] MEDS: ACETAMINOPHEN 325 MG TAB PO PRN (08:30)
[2017-05-02] MEDS ORDERED: VANCOMYCIN IV 750 MG in SODIUM CHLORIDE 0.9% 250ML 250 ML IV SCH (14:00)
[2017-05-03] VITALS (10 sets, daily range): BP systolic 101–159; BP diastolic 59–83; PULSE 84–120; TEMP 36.2–36.8; O2SAT 91–96; BMI 18.4
[2017-05-03] MEDS: IPRATROPIUM BROMIDE NEB SOLN 0.02% 2.5 ML VIAL INH SCH ×4 (01:48→19:00)
[2017-05-03] MEDS: LEVALBUTEROL 1.25MG/0.5ML NEB INH SCH ×4 (01:48→19:00)
[2017-05-03] MEDS: PIPERACILL/TAZOBAC IV 3.375 GM in DEXTROSE 5% 100ML IV SCH ×3 (02:42→18:05)
[2017-05-03] MEDS: DILTIAZEM HCL 60 MG TAB PO SCH ×4 (03:44→21:52)
--- NOTE | 2017-05-03 05:01 | Progress Note ---
Medicine Progress Note Date & Time of Visit: May 02, 2017 at 19:20 . Subjective Late entry secondary to computer downtime. No fever. Congested cough. No dyspnea. No chest pain. No nausea, vomiting, diarrhea. . Objective Vital signs this morning at 0736: Temp 36.3, pulse 97, respirations 20, blood pressure 163/70 . Physical Exam: General-lying in bed, no distress Neck-wearing cervical collar Lungs-scattered rhonchi; no respiratory distress Cardiovascular- irregular; no gallop appreciated; unable to assess neck veins; no pretibial edema Abdomen- + bowel sounds, soft, nontender Extremities- no cyanosis; no calf tenderness Neuro- alert, oriented Skin- warm & dry . Laboratory Results: Last 24 Hours Test 05/02/17 06:39 05/02/17 06:41 05/02/17 11:21 05/02/17 15:58 White Blood Count 7.11 K/uL Red Blood Count 3.84 M/uL Hemoglobin 11.6 g/dL Hematocrit 35.5 % Mean Corpuscular Volume 92.4 fL Mean Corpuscular Hemoglobin 30.2 pg Mean Corpuscular Hemoglobin Concent 32.7 g/dl RDW Standard Deviation 49.0 fL RDW Coefficient of Variation 14.4 % Platelet Count 179 K/uL Mean Platelet Volume 10.2 fL Sodium Level 143 mmol/L Potassium Level 3.6 mmol/L Chloride Level 108 mmol/L Carbon Dioxide Level 27 mmol/L Anion Gap 8.0 mmol/L Blood Urea Nitrogen 27 mg/dl Creatinine 0.97 mg/dl Est Creatinine Clear Calc Drug Dose 37.7 ml/min Estimated GFR () 80.5 Estimated GFR (Non- 69.4 BUN/Creatinine Ratio 27.3 Random Glucose 147 mg/dl Calcium Level 9.0 mg/dl Troponin I 0.052 ng/ml Bedside Glucose 141 mg/dl 177 mg/dl 120 mg/dl Test 05/02/17 20:10 05/03/17 04:44 Bedside Glucose 105 mg/dl Assessment & Plan ASPIRATION PNEUMONIA Afebrile. Oxygenating well on nasal cannula. Continue vancomycin and piperacillin/tazobactam. ASPIRATION Had a recent swallowing evaluation at [facility]. RN TRANSFER consulted. ALTERED MENTAL STATUS Brief episode of decreased responsiveness noted at [facility]. Monitor for arrhythmias. CORONARY ARTERY DISEASE No anginal symptoms. ATRIAL FIBRILLATION Continue metoprolol and diltiazem. Warfarin recently discontinued. DM TYPE II Basal bolus insulin per protocol. ODONTOID FRACTURE Continue cervical collar. VTE PROPHYLAXIS SQ heparin. DISPOSITION Expected to return to [facility]. Family Medicine follow-up with Dr. Dietrich. . Current Inpatient Medications: Current Inpatient Medications Medications (Trade) Dose Ordered Sig/Rc Route Start Time Stop Time Status Last Admin Dose Admin Ioversol (Optiray 320) 125 ml UD PRN IV 05/01/17 09:45 05/05/17 09:44 Heparin Sodium (Porcine) (Heparin Sq 5000 Unit/0.5ml) 5,000 unit Q12 SQ 05/01/17 21:00 05/31/17 20:59 05/02/17 21:00 5,000 UNIT Acetaminophen (Tylenol Tab) 650 mg Q4H PRN PO 05/01/17 13:00 05/31/17 12:59 05/02/17 08:30 650 MG Magnesium Hydroxide (Milk Of Magnesia Susp) 30 ml Q12H PRN PO 05/01/17 13:00 05/31/17 12:59 Ondansetron HCl (Zofran Inj) 4 mg Q6H PRN IV 05/01/17 13:00 05/31/17 12:59 05/02/17 08:29 4 MG Nitroglycerin (Nitrostat Tab) 0.4 mg UD PRN SL 05/01/17 13:00 05/31/17 12:59 Miscellaneous Information (Consult) 1 ea UD PRN N/A 05/01/17 13:45 05/31/17 13:44 Sodium Chloride 1,000 ml @ 75 mls/hr [id number] IV 05/01/17 15:15 05/31/17 15:14 05/02/17 20:00 75 MLS/HR Aspirin (Ecotrin Tab) 81 mg QAM PO 05/02/17 09:00 06/01/17 08:59 05/02/17 07:47 81 MG Docusate Sodium (coLACE CAP) 100 mg BID PO 05/01/17 21:00 05/31/17 20:59 05/02/17 21:00 100 MG Duloxetine HCl (Cymbalta Cap) 30 mg QAM PO 05/02/17 09:00 06/01/17 08:59 05/02/17 07:46 30 MG Lorazepam (Ativan Tab) 1 mg TID PRN PO 05/01/17 13:30 05/31/17 13:29 Metoprolol Tartrate (Lopressor Tab) 25 mg BID PO 05/01/17 21:00 05/31/17 20:59 05/02/17 21:00 25 MG Nystatin (Mycostatin Crm) 1 appln BID EXT 05/01/17 21:00 05/31/17 20:59 05/02/17 21:00 1 APPLN Ipratropium [place] (Atrovent 0.02% 0.5MG/2.5ML Neb) 0.5 mg Q4H PRN INH 05/01/17 13:45 05/31/17 13:44 Levalbuterol (Xopenex 0.63 Mg/ 3 Ml Neb) 0.63 mg Q4H PRN INH 05/01/17 13:45 05/31/17 13:44 Ipratropium [place] (Atrovent 0.02% 0.5MG/2.5ML Neb) 0.5 mg Q6R INH 05/01/17 15:00 05/31/17 14:59 05/03/17 01:48 0.5 MG Levalbuterol (Xopenex 1.25MG/ 0.5ML Neb) 1.25 mg Q6R INH 05/01/17 15:00 05/31/17 14:59 05/03/17 01:48 1.25 MG Miscellaneous Information (Consult) 1 ea UD PRN N/A 05/01/17 13:45 05/31/17 13:44 Insulin Glargine (Lantus Solostar Pen) 5 units Q12 SC 05/01/17 21:00 05/31/17 20:59 05/02/17 21:00 5 UNITS Insulin Aspart (novoLOG ASPART) SLIDING SCALE If C... ACHS SC 05/01/17 16:00 05/31/17 15:59 05/02/17 12:28 1 UNITS Glucose (Glucose 40% Gel) 15-30 GRAMS 15 GRAMS... UD PRN PO 05/01/17 14:00 05/31/17 13:59 Glucose (Glucose Chew Tab) 4-8 Tablets 4 Tabl... UD PRN PO 05/01/17 14:00 05/31/17 13:59 Dextrose (Dextrose 50% 50ML Syringe) 25-50ML OF 50% DW IV FOR... UD PRN IV 05/01/17 14:00 05/31/17 13:59 Glucagon (Glucagon Inj) 1 mg UD PRN SQ 05/01/17 14:00 05/31/17 13:59 Piperacillin Sod/ Tazobactam Sod 3.375 gm/Dextrose 115 ml @ 28.75 mls/ hr Q8H IV 05/01/17 18:00 05/08/17 17:59 05/03/17 02:42 28.75 MLS/HR Vancomycin HCl 750 mg/Sodium Chloride 265 ml @ 125 mls/hr Q24H IV 05/02/17 14:00 05/09/17 13:59 05/02/17 13:57 125 MLS/HR Diltiazem HCl (Cardizem Tab) 60 mg Q6H PO 05/01/17 21:00 05/31/17 20:59 05/03/17 03:44 60 MG
[2017-05-03 06:00] LABS: HEMATOCRIT 31.2 % (42-52); HEMOGLOBIN 10.3 g/dL (14.0-18.0); MEAN CELL VOLUME 91.8 fL (80-100); MEAN CORPUSCULAR HEMOGLOBIN 30.3 pg (25-34); MEAN PLATELET VOLUME 9.8 fL (7.4-10.4); PLATELET COUNT 177 K/uL (130-400); RED CELL DISTRIBUTION WIDTH CV 14.4 % (11.5-14.5); RED CELL DISTRIBUTION WIDTH SD 48.4 fL (36.4-46.3); WHITE BLOOD COUNT 8.05 K/uL (4.8-10.8)
[2017-05-03 06:38] LABS: CALCIUM 8.2 mg/dl (8.5-10.1); CREATININE 0.77 mg/dl (0.60-1.40)
[2017-05-03] MEDS: INSULIN ASPART 100 UNITS/ML 3 ML PEN SC SCH ×4 (07:00→21:00)
[2017-05-03] MEDS: DULOXETINE (CYMBALTA) 30 MG CAP PO SCH (08:41)
[2017-05-03] MEDS: ACETAMINOPHEN 325 MG TAB PO PRN ×2 (08:41→18:54)
[2017-05-03] MEDS: DOCUSATE SODIUM 100 MG CAP PO SCH ×2 (08:41→21:52)
[2017-05-03] MEDS: ASPIRIN 81 MG ECTAB PO SCH (08:42)
[2017-05-03] MEDS: METOPROLOL TARTRATE 25 MG TAB PO SCH ×2 (08:42→21:52)
[2017-05-03] MEDS: SODIUM CHLORIDE 0.9% 1000ML 1,000 ML IV SCH ×2 (08:43→21:44)
[2017-05-03] MEDS: NYSTATIN CR 15 GM TUBE EXT SCH ×2 (08:44→21:51)
[2017-05-03] MEDS: HEPARIN SOD 5000 UNIT/0.5 ML CARP SQ SCH ×2 (08:46→22:14)
[2017-05-03] MEDS: INSULIN GLARGINE SOLOSTAR 100 UNITS/ML 3 ML PEN SC SCH ×2 (08:47→22:13)
[2017-05-03] MEDS: POTASSIUM CHLORIDE 20 MEQ TABCR PO SCH ×3 (11:57→21:53)
--- NOTE | 2017-05-03 19:48 | Progress Note ---
Medicine Progress Note Date & Time of Visit: May 03, 2017 at 15:20 . Subjective No fever. Cough improved. A short of breath. No chest pain. No nausea, vomiting, diarrhea. visiting. . Objective Last 8 Hrs Date Time Temp Pulse Resp B/P (MAP) Pulse Ox O2 Delivery O2 Flow Rate FiO2 05/03/17 19:05 36.4 120 16 129/77 (94) 96 Nebulizer 05/03/17 19:02 98 20 94 Nasal Cannula 3.0 05/03/17 16:27 Room Air 05/03/17 15:00 36.3 84 16 106/69 (81) 92 Nasal Cannula 3.0 05/03/17 12:00 Nasal Cannula 2.0 Physical Exam: General-lying in bed, no distress Neck-wearing cervical collar Lungs-few scattered rhonchi; no respiratory distress Cardiovascular- irregular; no gallop appreciated; unable to assess neck veins; no pretibial edema Abdomen- + bowel sounds, soft, nontender Extremities- no cyanosis; no calf tenderness Neuro- alert, mild confusion Skin- warm & dry . Laboratory Results: Last 24 Hours Test 05/02/17 20:10 05/03/17 05:38 05/03/17 07:20 05/03/17 11:34 Bedside Glucose 105 mg/dl 71 mg/dl 90 mg/dl White Blood Count 8.05 K/uL Red Blood Count 3.40 M/uL Hemoglobin 10.3 g/dL Hematocrit 31.2 % Mean Corpuscular Volume 91.8 fL Mean Corpuscular Hemoglobin 30.3 pg Mean Corpuscular Hemoglobin Concent 33.0 g/dl RDW Standard Deviation 48.4 fL RDW Coefficient of Variation 14.4 % Platelet Count 177 K/uL Mean Platelet Volume 9.8 fL Sodium Level 141 mmol/L Potassium Level 3.0 mmol/L Chloride Level 106 mmol/L Carbon Dioxide Level 28 mmol/L Anion Gap 7.0 mmol/L Blood Urea Nitrogen 19 mg/dl Creatinine 0.77 mg/dl Est Creatinine Clear Calc Drug Dose 47.5 ml/min Estimated GFR () 93.9 Estimated GFR (Non- 81.0 BUN/Creatinine Ratio 24.3 Random Glucose 76 mg/dl Calcium Level 8.2 mg/dl Test 05/03/17 16:18 Bedside Glucose 101 mg/dl Assessment & Plan ASPIRATION PNEUMONIA Presented with apparent aspiration pneumonia after episode of nausea and vomiting. Doing better. Afebrile. Oxygenating well on nasal cannula. Nasal MRSA screen negative, so MRSA pneumonia very unlikely. Vancomycin discontinued. Continue piperacillin/tazobactam. ASPIRATION Had a recent swallowing evaluation at [facility]. INFORMATION TECHNOLOGY TECHNICIAN consulted. No need for repeat video swallow at this time. Continue aspiration precautions. ALTERED MENTAL STATUS Brief episode of decreased responsiveness noted at [facility]. Monitor for arrhythmias. CORONARY ARTERY DISEASE No anginal symptoms. ATRIAL FIBRILLATION Continue metoprolol and diltiazem. Warfarin recently discontinued. DM TYPE II Basal bolus insulin per protocol. ODONTOID FRACTURE Continue cervical collar. VTE PROPHYLAXIS SQ heparin. DISPOSITION Expected to return to [facility]. Family Medicine follow-up with Dr. Dietrich. . Current Inpatient Medications: Current Inpatient Medications Medications (Trade) Dose Ordered Sig/Rc Route Start Time Stop Time Status Last Admin Dose Admin Ioversol (Optiray 320) 125 ml UD PRN IV 05/01/17 09:45 05/05/17 09:44 Heparin Sodium (Porcine) (Heparin Sq 5000 Unit/0.5ml) 5,000 unit Q12 SQ 05/01/17 21:00 05/31/17 20:59 05/03/17 08:46 5,000 UNIT Acetaminophen (Tylenol Tab) 650 mg Q4H PRN PO 05/01/17 13:00 05/31/17 12:59 05/03/17 18:54 650 MG Magnesium Hydroxide (Milk Of Magnesia Susp) 30 ml Q12H PRN PO 05/01/17 13:00 05/31/17 12:59 05/03/17 11:57 30 ML Ondansetron HCl (Zofran Inj) 4 mg Q6H PRN IV 05/01/17 13:00 05/31/17 12:59 05/02/17 08:29 4 MG Nitroglycerin (Nitrostat Tab) 0.4 mg UD PRN SL 05/01/17 13:00 05/31/17 12:59 Sodium Chloride 1,000 ml @ 75 mls/hr [id number] IV 05/01/17 15:15 05/31/17 15:14 05/03/17 08:43 75 MLS/HR Aspirin (Ecotrin Tab) 81 mg QAM PO 05/02/17 09:00 06/01/17 08:59 05/03/17 08:42 81 MG Docusate Sodium (coLACE CAP) 100 mg BID PO 05/01/17 21:00 05/31/17 20:59 05/03/17 08:41 100 MG Duloxetine HCl (Cymbalta Cap) 30 mg QAM PO 05/02/17 09:00 06/01/17 08:59 05/03/17 08:41 30 MG Lorazepam (Ativan Tab) 1 mg TID PRN PO 05/01/17 13:30 05/31/17 13:29 05/03/17 08:41 1 MG Metoprolol Tartrate (Lopressor Tab) 25 mg BID PO 05/01/17 21:00 05/31/17 20:59 05/03/17 08:42 25 MG Nystatin (Mycostatin Crm) 1 appln BID EXT 05/01/17 21:00 05/31/17 20:59 05/03/17 08:44 1 APPLN Ipratropium [place] (Atrovent 0.02% 0.5MG/2.5ML Neb) 0.5 mg Q4H PRN INH 05/01/17 13:45 05/31/17 13:44 Levalbuterol (Xopenex 0.63 Mg/ 3 Ml Neb) 0.63 mg Q4H PRN INH 05/01/17 13:45 05/31/17 13:44 Ipratropium [place] (Atrovent 0.02% 0.5MG/2.5ML Neb) 0.5 mg Q6R INH 05/01/17 15:00 05/31/17 14:59 05/03/17 19:00 0.5 MG Levalbuterol (Xopenex 1.25MG/ 0.5ML Neb) 1.25 mg Q6R INH 05/01/17 15:00 05/31/17 14:59 05/03/17 19:00 1.25 MG Miscellaneous Information (Consult) 1 ea UD PRN N/A 05/01/17 13:45 05/31/17 13:44 Insulin Glargine (Lantus Solostar Pen) 5 units Q12 SC 05/01/17 21:00 05/31/17 20:59 05/03/17 08:47 5 UNITS Insulin Aspart (novoLOG ASPART) SLIDING SCALE If C... ACHS SC 05/01/17 16:00 05/31/17 15:59 05/02/17 12:28 1 UNITS Glucose (Glucose 40% Gel) 15-30 GRAMS 15 GRAMS... UD PRN PO 05/01/17 14:00 05/31/17 13:59 Glucose (Glucose Chew Tab) 4-8 Tablets 4 Tabl... UD PRN PO 05/01/17 14:00 05/31/17 13:59 Dextrose (Dextrose 50% 50ML Syringe) 25-50ML OF 50% DW IV FOR... UD PRN IV 05/01/17 14:00 05/31/17 13:59 Glucagon (Glucagon Inj) 1 mg UD PRN SQ 05/01/17 14:00 05/31/17 13:59 Piperacillin Sod/ Tazobactam Sod 3.375 gm/Dextrose 115 ml @ 28.75 mls/ hr Q8H IV 05/01/17 18:00 05/08/17 17:59 05/03/17 18:05 28.75 MLS/HR Diltiazem HCl (Cardizem Tab) 60 mg Q6H PO 05/01/17 21:00 05/31/17 20:59 05/03/17 15:44 60 MG Potassium Chloride (Klor-Con Tab) 20 meq TID PO 05/03/17 10:00 06/02/17 09:59 05/03/17 14:16 20 MEQ Enteral Nutritional Formula (Boost Glucose Control) 1 can BIDM PO 05/04/17 07:30 06/03/17 07:29
[2017-05-04] VITALS (10 sets, daily range): BP systolic 101–149; BP diastolic 57–74; PULSE 68–96; TEMP 36.2–36.8; O2SAT 88–95; Ht 170.2 cm; Wt 52.2 kg
[2017-05-04] MEDS: DILTIAZEM HCL 60 MG TAB PO SCH ×4 (02:04→15:00)
[2017-05-04] MEDS: PIPERACILL/TAZOBAC IV 3.375 GM in DEXTROSE 5% 100ML IV SCH ×3 (02:04→17:58)
[2017-05-04] MEDS: LEVALBUTEROL 1.25MG/0.5ML NEB INH SCH ×4 (02:09→19:08)
[2017-05-04] MEDS: IPRATROPIUM BROMIDE NEB SOLN 0.02% 2.5 ML VIAL INH SCH ×4 (02:09→19:09)
[2017-05-04] MEDS: ACETAMINOPHEN 325 MG TAB PO PRN ×3 (02:32→16:28)
[2017-05-04 06:43] LABS: HEMATOCRIT 28.4 % (42-52); HEMOGLOBIN 9.5 g/dL (14.0-18.0); MEAN CELL VOLUME 90.2 fL (80-100); MEAN CORPUSCULAR HEMOGLOBIN 30.2 pg (25-34); MEAN CORPUSCULAR HGB CONC 33.5 g/dl (32-36); MEAN PLATELET VOLUME 9.4 fL (7.4-10.4); PLATELET COUNT 170 K/uL (130-400); RED CELL DISTRIBUTION WIDTH CV 14.3 % (11.5-14.5); RED CELL DISTRIBUTION WIDTH SD 47.3 fL (36.4-46.3); WHITE BLOOD COUNT 6.77 K/uL (4.8-10.8)
[2017-05-04] MEDS: INSULIN ASPART 100 UNITS/ML 3 ML PEN SC SCH ×4 (07:00→21:45)
[2017-05-04 07:20] LABS: CALCIUM 7.6 mg/dl (8.5-10.1); CREATININE 0.79 mg/dl (0.60-1.40); POTASSIUM 3.4 mmol/L (3.5-5.1)
[2017-05-04] MEDS: NYSTATIN CR 15 GM TUBE EXT SCH ×2 (07:51→21:44)
[2017-05-04] MEDS: DOCUSATE SODIUM 100 MG CAP PO SCH ×2 (07:52→21:44)
[2017-05-04] MEDS: DULOXETINE (CYMBALTA) 30 MG CAP PO SCH (07:54)
[2017-05-04] MEDS: METOPROLOL TARTRATE 25 MG TAB PO SCH ×2 (07:55→21:43)
[2017-05-04] MEDS: POTASSIUM CHLORIDE 20 MEQ TABCR PO SCH ×3 (07:56→21:44)
[2017-05-04] MEDS: ASPIRIN 81 MG ECTAB PO SCH (07:56)
[2017-05-04] MEDS: HEPARIN SOD 5000 UNIT/0.5 ML CARP SQ SCH ×2 (07:58→21:46)
[2017-05-04] MEDS: BOOST GLUCOSE CONTROL PO SCH ×2 (08:01→16:28)
[2017-05-04] MEDS: INSULIN GLARGINE SOLOSTAR 100 UNITS/ML 3 ML PEN SC SCH ×2 (08:08→21:46)
[2017-05-04] MEDS: SODIUM CHLORIDE 0.9% 1000ML 1,000 ML IV SCH ×2 (10:05→23:27)
[2017-05-04] MEDS ORDERED: VANCOMYCIN TROUGH ONE (13:30)
--- NOTE | 2017-05-04 23:16 | Progress Note ---
Medicine Progress Note Date & Time of Visit: May 04, 2017 at 19:30 . Subjective Tired, but otherwise doing well. No fever. Cough much better. No shortness of breath. No chest pain. Appetite improved. No nausea or vomiting. Family visiting earlier this evening. . Objective Last 8 Hrs Date Time Temp Pulse Resp B/P (MAP) Pulse Ox O2 Delivery O2 Flow Rate FiO2 05/04/17 20:18 36.7 90 18 148/71 (96) 92 Nasal Cannula 3.0 05/04/17 20:00 Nasal Cannula 2.0 05/04/17 19:10 74 16 88 Nasal Cannula 2.0 05/04/17 16:00 Nasal Cannula 2.0 05/04/17 15:46 36.3 74 16 128/67 (87) 92 Nasal Cannula 2.0 Physical Exam: General- lying in bed, no distress Neck- wearing cervical collar Lungs- essentially clear; no respiratory distress Cardiovascular- irregular; no gallop appreciated; unable to assess neck veins; no pretibial edema Abdomen- + bowel sounds, soft, nontender Extremities- no cyanosis; no calf tenderness Neuro- alert, mild confusion Skin- warm & dry . Laboratory Results: Last 24 Hours Test 05/04/17 06:14 05/04/17 06:24 05/04/17 07:31 05/04/17 07:45 Bedside Glucose 74 mg/dl 67 mg/dl 74 mg/dl White Blood Count 6.77 K/uL Red Blood Count 3.15 M/uL Hemoglobin 9.5 g/dL Hematocrit 28.4 % Mean Corpuscular Volume 90.2 fL Mean Corpuscular Hemoglobin 30.2 pg Mean Corpuscular Hemoglobin Concent 33.5 g/dl RDW Standard Deviation 47.3 fL RDW Coefficient of Variation 14.3 % Platelet Count 170 K/uL Mean Platelet Volume 9.4 fL Sodium Level 138 mmol/L Potassium Level 3.4 mmol/L Chloride Level 106 mmol/L Carbon Dioxide Level 26 mmol/L Anion Gap 6.0 mmol/L Blood Urea Nitrogen 15 mg/dl Creatinine 0.79 mg/dl Est Creatinine Clear Calc Drug Dose 47.7 ml/min Estimated GFR () 92.9 Estimated GFR (Non- 80.2 BUN/Creatinine Ratio 18.3 Random Glucose 64 mg/dl Calcium Level 7.6 mg/dl Test 05/04/17 11:03 05/04/17 16:02 05/04/17 20:19 Bedside Glucose 127 mg/dl 139 mg/dl 195 mg/dl Assessment & Plan ASPIRATION PNEUMONIA Presented with apparent aspiration pneumonia after episode of nausea and vomiting. Doing better. Afebrile. Oxygenating well on nasal cannula. Nasal MRSA screen negative, so MRSA pneumonia very unlikely. Vancomycin discontinued. Continue piperacillin/tazobactam. ASPIRATION Had a recent swallowing evaluation at [facility]. TUNNELING MACHINE OPERATOR consulted. No need for repeat video swallow at this time. Continue aspiration precautions. ALTERED MENTAL STATUS Brief episode of decreased responsiveness noted at [facility]. Monitor for arrhythmias. CORONARY ARTERY DISEASE No anginal symptoms. ATRIAL FIBRILLATION Continue metoprolol and diltiazem. Warfarin recently discontinued. DM TYPE II FBS this morning 67. Basal bolus insulin per protocol. ODONTOID FRACTURE Continue cervical collar. VTE PROPHYLAXIS SQ heparin. DISPOSITION Expected to return to [facility]. Family Medicine follow-up with Dr. Dietrich. . Current Inpatient Medications: Current Inpatient Medications Medications (Trade) Dose Ordered Sig/Rc Route Start Time Stop Time Status Last Admin Dose Admin Ioversol (Optiray 320) 125 ml UD PRN IV 05/01/17 09:45 05/05/17 09:44 Heparin Sodium (Porcine) (Heparin Sq 5000 Unit/0.5ml) 5,000 unit Q12 SQ 05/01/17 21:00 05/31/17 20:59 05/04/17 21:46 5,000 UNIT Acetaminophen (Tylenol Tab) 650 mg Q4H PRN PO 05/01/17 13:00 05/31/17 12:59 05/04/17 16:28 650 MG Magnesium Hydroxide (Milk Of Magnesia Susp) 30 ml Q12H PRN PO 05/01/17 13:00 05/31/17 12:59 05/03/17 11:57 30 ML Ondansetron HCl (Zofran Inj) 4 mg Q6H PRN IV 05/01/17 13:00 05/31/17 12:59 05/02/17 08:29 4 MG Nitroglycerin (Nitrostat Tab) 0.4 mg UD PRN SL 05/01/17 13:00 05/31/17 12:59 Sodium Chloride 1,000 ml @ 75 mls/hr [id number] IV 05/01/17 15:15 4/26/18 15:14 05/04/17 10:05 75 MLS/HR Aspirin (Ecotrin Tab) 81 mg QAM PO 05/02/17 09:00 06/01/17 08:59 05/04/17 07:56 81 MG Docusate Sodium (coLACE CAP) 100 mg BID PO 05/01/17 21:00 05/31/17 20:59 05/04/17 21:44 100 MG Duloxetine HCl (Cymbalta Cap) 30 mg QAM PO 05/02/17 09:00 06/01/17 08:59 05/04/17 07:54 30 MG Lorazepam (Ativan Tab) 1 mg TID PRN PO 05/01/17 13:30 05/31/17 13:29 05/03/17 08:41 1 MG Metoprolol Tartrate (Lopressor Tab) 25 mg BID PO 05/01/17 21:00 05/31/17 20:59 05/04/17 21:43 25 MG Nystatin (Mycostatin Crm) 1 appln BID EXT 05/01/17 21:00 05/31/17 20:59 05/04/17 21:44 1 APPLN Ipratropium [place] (Atrovent 0.02% 0.5MG/2.5ML Neb) 0.5 mg Q4H PRN INH 05/01/17 13:45 05/31/17 13:44 Levalbuterol (Xopenex 0.63 Mg/ 3 Ml Neb) 0.63 mg Q4H PRN INH 05/01/17 13:45 05/31/17 13:44 Ipratropium [place] (Atrovent 0.02% 0.5MG/2.5ML Neb) 0.5 mg Q6R INH 05/01/17 15:00 05/31/17 14:59 05/04/17 19:09 0.5 MG Levalbuterol (Xopenex 1.25MG/ 0.5ML Neb) 1.25 mg Q6R INH 05/01/17 15:00 05/31/17 14:59 05/04/17 19:08 1.25 MG Miscellaneous Information (Consult) 1 ea UD PRN N/A 05/01/17 13:45 05/31/17 13:44 Insulin Glargine (Lantus Solostar Pen) 5 units Q12 SC 05/01/17 21:00 05/31/17 20:59 05/04/17 21:46 5 UNITS Insulin Aspart (novoLOG ASPART) SLIDING SCALE If C... ACHS SC 05/01/17 16:00 05/31/17 15:59 05/04/17 21:45 1 UNITS Glucose (Glucose 40% Gel) 15-30 GRAMS 15 GRAMS... UD PRN PO 05/01/17 14:00 05/31/17 13:59 Glucose (Glucose Chew Tab) 4-8 Tablets 4 Tabl... UD PRN PO 05/01/17 14:00 05/31/17 13:59 Dextrose (Dextrose 50% 50ML Syringe) 25-50ML OF 50% DW IV FOR... UD PRN IV 05/01/17 14:00 05/31/17 13:59 Glucagon (Glucagon Inj) 1 mg UD PRN SQ 05/01/17 14:00 05/31/17 13:59 Piperacillin Sod/ Tazobactam Sod 3.375 gm/Dextrose 115 ml @ 28.75 mls/ hr Q8H IV 05/01/17 18:00 05/08/17 17:59 05/04/17 17:58 28.75 MLS/HR Potassium Chloride (Klor-Con Tab) 20 meq TID PO 05/03/17 10:00 06/02/17 09:59 05/04/17 21:44 20 MEQ Enteral Nutritional Formula (Boost Glucose Control) 1 can BIDM PO 05/04/17 07:30 06/03/17 07:29 05/04/17 16:28 1 CAN
[2017-05-05] VITALS (10 sets, daily range): BP systolic 126–170; BP diastolic 76–93; PULSE 77–107; TEMP 36.3–36.9; O2SAT 91–98
[2017-05-05] MEDS: IPRATROPIUM BROMIDE NEB SOLN 0.02% 2.5 ML VIAL INH SCH ×4 (01:30→18:56)
[2017-05-05] MEDS: LEVALBUTEROL 1.25MG/0.5ML NEB INH SCH ×4 (01:31→18:56)
[2017-05-05] MEDS: PIPERACILL/TAZOBAC IV 3.375 GM in DEXTROSE 5% 100ML IV SCH ×3 (02:17→18:00)
[2017-05-05] MEDS: ACETAMINOPHEN 325 MG TAB PO PRN ×3 (06:06→22:18)
[2017-05-05 06:37] LABS: HEMATOCRIT 30.4 % (42-52); MEAN CELL VOLUME 91.3 fL (80-100); MEAN CORPUSCULAR HGB CONC 32.9 g/dl (32-36); MEAN PLATELET VOLUME 9.8 fL (7.4-10.4); PLATELET COUNT 241 K/uL (130-400); RED CELL DISTRIBUTION WIDTH CV 14.2 % (11.5-14.5); RED CELL DISTRIBUTION WIDTH SD 47.4 fL (36.4-46.3); WHITE BLOOD COUNT 8.34 K/uL (4.8-10.8)
[2017-05-05] MEDS: INSULIN ASPART 100 UNITS/ML 3 ML PEN SC SCH ×4 (07:00→22:00)
[2017-05-05 07:24] LABS: CALCIUM 8.1 mg/dl (8.5-10.1); CREATININE 0.89 mg/dl (0.60-1.40); POTASSIUM 4.1 mmol/L (3.5-5.1)
[2017-05-05] MEDS: BOOST GLUCOSE CONTROL PO SCH ×2 (07:47→17:00)
[2017-05-05] MEDS: NYSTATIN CR 15 GM TUBE EXT SCH ×2 (07:47→21:58)
[2017-05-05] MEDS: POTASSIUM CHLORIDE 20 MEQ TABCR PO SCH ×3 (07:48→21:59)
[2017-05-05] MEDS: ASPIRIN 81 MG ECTAB PO SCH (07:49)
[2017-05-05] MEDS: DOCUSATE SODIUM 100 MG CAP PO SCH ×2 (07:49→21:00)
[2017-05-05] MEDS: DULOXETINE (CYMBALTA) 30 MG CAP PO SCH (07:49)
[2017-05-05] MEDS: METOPROLOL TARTRATE 25 MG TAB PO SCH ×2 (07:49→21:59)
[2017-05-05] MEDS: HEPARIN SOD 5000 UNIT/0.5 ML CARP SQ SCH ×2 (07:50→22:01)
[2017-05-05] MEDS: SODIUM CHLORIDE 0.9% 1000ML 1,000 ML IV SCH (13:50)
--- NOTE | 2017-05-05 17:35 | Progress Note ---
Medicine Progress Note Date & Time of Visit: May 05, 2017 at 11:10 . Subjective Patient does not offer many complaints. He has been afebrile. Rare cough, no dyspnea. No chest pain. Remains in atrial fibrillation. Diltiazem held because of episodes of bradycardia, sometimes as low as the 30s and 40s. Overall, appetite is better. No nausea or vomiting. Has had loose stools since dose of milk of magnesia 2 days ago. Incontinent of urine. Episodes of hypoglycemia yesterday and this morning. . Objective Last 8 Hrs Date Time Temp Pulse Resp B/P (MAP) Pulse Ox O2 Delivery O2 Flow Rate FiO2 05/05/17 16:00 Nasal Cannula 2.0 05/05/17 15:19 36.4 100 18 158/93 (114) 98 Nasal Cannula 2.0 05/05/17 15:01 87 16 91 Nasal Cannula 3.0 05/05/17 12:00 Nasal Cannula 2.0 05/05/17 11:21 36.3 85 20 168/83 (111) 96 Nasal Cannula 2.0 Physical Exam: General- lying in bed, no distress Neck- wearing cervical collar Lungs- essentially clear; no respiratory distress Cardiovascular- irregular; no gallop appreciated; unable to assess neck veins; trace pretibial edema Abdomen- + bowel sounds, soft, nontender Extremities- no cyanosis; no calf tenderness Neuro- alert, mild confusion Skin- warm & dry . Laboratory Results: Last 24 Hours Test 05/04/17 20:19 05/05/17 06:09 05/05/17 07:07 05/05/17 07:24 Bedside Glucose 195 mg/dl 64 mg/dl 73 mg/dl White Blood Count 8.34 K/uL Red Blood Count 3.33 M/uL Hemoglobin 10.0 g/dL Hematocrit 30.4 % Mean Corpuscular Volume 91.3 fL Mean Corpuscular Hemoglobin 30.0 pg Mean Corpuscular Hemoglobin Concent 32.9 g/dl RDW Standard Deviation 47.4 fL RDW Coefficient of Variation 14.2 % Platelet Count 241 K/uL Mean Platelet Volume 9.8 fL Sodium Level 136 mmol/L Potassium Level 4.1 mmol/L Chloride Level 105 mmol/L Carbon Dioxide Level 24 mmol/L Anion Gap 7.0 mmol/L Blood Urea Nitrogen 12 mg/dl Creatinine 0.89 mg/dl Est Creatinine Clear Calc Drug Dose 43.0 ml/min Estimated GFR () 88.5 Estimated GFR (Non- 76.3 BUN/Creatinine Ratio 13.0 Random Glucose 48 mg/dl Calcium Level 8.1 mg/dl Test 05/05/17 07:38 05/05/17 10:48 05/05/17 16:09 Bedside Glucose 75 mg/dl 106 mg/dl 85 mg/dl Assessment & Plan ASPIRATION PNEUMONIA Presented with apparent aspiration pneumonia after episode of nausea and vomiting. Doing better. Afebrile. Oxygenating well on nasal cannula. Nasal MRSA screen negative, so MRSA pneumonia very unlikely. Vancomycin discontinued. Continue piperacillin/tazobactam today, then transition to oral therapy with amoxicillin/clavulanic acid. ASPIRATION Had a recent swallowing evaluation at [facility]. PLATER SUPERVISOR consulted. No need for repeat video swallow at this time. Continue aspiration precautions. ALTERED MENTAL STATUS Brief episode of decreased responsiveness noted at [facility]. Episodes of bradycardia noted here on telemetry. Continue to monitor for arrhythmias. CORONARY ARTERY DISEASE No anginal symptoms. ATRIAL FIBRILLATION Rate slow at times. Diltiazem discontinued. Continue metoprolol. Warfarin recently discontinued due to fall risk. DM TYPE II FBS this morning 64. Stop Lantus. Continue NovoLog per protocol. ODONTOID FRACTURE Continue cervical collar. URINARY INCONTINENCE Check postvoid residuals by US. VTE PROPHYLAXIS SQ heparin. DISPOSITION Expected to return to [facility]. Family Medicine follow-up with Dr. Dietrich. . Current Inpatient Medications: Current Inpatient Medications Medications (Trade) Dose Ordered Sig/Rc Route Start Time Stop Time Status Last Admin Dose Admin Heparin Sodium (Porcine) (Heparin Sq 5000 Unit/0.5ml) 5,000 unit Q12 SQ 05/01/17 21:00 05/31/17 20:59 05/05/17 07:50 5,000 UNIT Acetaminophen (Tylenol Tab) 650 mg Q4H PRN PO 05/01/17 13:00 05/31/17 12:59 05/05/17 06:06 650 MG Magnesium Hydroxide (Milk Of Magnesia Susp) 30 ml Q12H PRN PO 05/01/17 13:00 05/31/17 12:59 05/03/17 11:57 30 ML Ondansetron HCl (Zofran Inj) 4 mg Q6H PRN IV 3/27/18 13:00 05/31/17 12:59 05/02/17 08:29 4 MG Nitroglycerin (Nitrostat Tab) 0.4 mg UD PRN SL 05/01/17 13:00 05/31/17 12:59 Sodium Chloride 1,000 ml @ 75 mls/hr [id number] IV 05/01/17 15:15 05/31/17 15:14 05/05/17 13:50 75 MLS/HR Aspirin (Ecotrin Tab) 81 mg QAM PO 05/02/17 09:00 06/01/17 08:59 05/05/17 07:49 81 MG Docusate Sodium (coLACE CAP) 100 mg BID PO 05/01/17 21:00 05/31/17 20:59 05/05/17 07:49 100 MG Duloxetine HCl (Cymbalta Cap) 30 mg QAM PO 05/02/17 09:00 06/01/17 08:59 05/05/17 07:49 30 MG Lorazepam (Ativan Tab) 1 mg TID PRN PO 05/01/17 13:30 05/31/17 13:29 05/03/17 08:41 1 MG Metoprolol Tartrate (Lopressor Tab) 25 mg BID PO 05/01/17 21:00 05/31/17 20:59 05/05/17 07:49 25 MG Nystatin (Mycostatin Crm) 1 appln BID EXT 05/01/17 21:00 05/31/17 20:59 05/05/17 07:47 1 APPLN Ipratropium [place] (Atrovent 0.02% 0.5MG/2.5ML Neb) 0.5 mg Q4H PRN INH 05/01/17 13:45 05/31/17 13:44 Levalbuterol (Xopenex 0.63 Mg/ 3 Ml Neb) 0.63 mg Q4H PRN INH 05/01/17 13:45 05/31/17 13:44 Ipratropium [place] (Atrovent 0.02% 0.5MG/2.5ML Neb) 0.5 mg Q6R INH 05/01/17 15:00 05/31/17 14:59 05/05/17 14:57 0.5 MG Levalbuterol (Xopenex 1.25MG/ 0.5ML Neb) 1.25 mg Q6R INH 05/01/17 15:00 05/31/17 14:59 05/05/17 14:57 1.25 MG Miscellaneous Information (Consult) 1 ea UD PRN N/A 05/01/17 13:45 05/31/17 13:44 Insulin Aspart (novoLOG ASPART) SLIDING SCALE If C... ACHS SC 05/01/17 16:00 05/31/17 15:59 05/04/17 21:45 1 UNITS Glucose (Glucose 40% Gel) 15-30 GRAMS 15 GRAMS... UD PRN PO 05/01/17 14:00 05/31/17 13:59 Glucose (Glucose Chew Tab) 4-8 Tablets 4 Tabl... UD PRN PO 05/01/17 14:00 05/31/17 13:59 Dextrose (Dextrose 50% 50ML Syringe) 25-50ML OF 50% DW IV FOR... UD PRN IV 05/01/17 14:00 05/31/17 13:59 Glucagon (Glucagon Inj) 1 mg UD PRN SQ 05/01/17 14:00 05/31/17 13:59 Piperacillin Sod/ Tazobactam Sod 3.375 gm/Dextrose 115 ml @ 28.75 mls/ hr Q8H IV 05/01/17 18:00 05/08/17 17:59 05/05/17 10:45 28.75 MLS/HR Potassium Chloride (Klor-Con Tab) 20 meq TID PO 05/03/17 10:00 06/02/17 09:59 05/05/17 13:51 20 MEQ Enteral Nutritional Formula (Boost Glucose Control) 1 can BIDM PO 05/04/17 07:30 06/03/17 07:29 05/05/17 17:00 1 CAN
[2017-05-06] VITALS (10 sets, daily range): BP systolic 127–155; BP diastolic 79–95; PULSE 74–107; TEMP 36.1–36.9; O2SAT 93–100
[2017-05-06] MEDS: IPRATROPIUM BROMIDE NEB SOLN 0.02% 2.5 ML VIAL INH SCH ×4 (01:59→19:11)
[2017-05-06] MEDS: LEVALBUTEROL 1.25MG/0.5ML NEB INH SCH ×4 (01:59→19:11)
[2017-05-06] MEDS: ACETAMINOPHEN 325 MG TAB PO PRN ×2 (06:41→12:28)
[2017-05-06] MEDS: METOPROLOL TARTRATE 25 MG TAB PO SCH ×2 (07:55→20:33)
[2017-05-06] MEDS: DULOXETINE (CYMBALTA) 30 MG CAP PO SCH (07:55)
[2017-05-06] MEDS: NYSTATIN CR 15 GM TUBE EXT SCH ×2 (07:56→20:32)
[2017-05-06] MEDS: POTASSIUM CHLORIDE 20 MEQ TABCR PO SCH ×2 (07:56→20:33)
[2017-05-06] MEDS: DOCUSATE SODIUM 100 MG CAP PO SCH ×2 (07:56→19:56)
[2017-05-06] MEDS: ASPIRIN 81 MG ECTAB PO SCH (07:57)
[2017-05-06] MEDS: HEPARIN SOD 5000 UNIT/0.5 ML CARP SQ SCH ×2 (08:15→20:41)
[2017-05-06] MEDS: BOOST GLUCOSE CONTROL PO SCH ×2 (08:15→16:45)
[2017-05-06] MEDS: INSULIN ASPART 100 UNITS/ML 3 ML PEN SC SCH ×4 (08:15→20:33)
[2017-05-06] MEDS: AMOXICILLIN/CLAVULANATE POTAS 600 MG/5 ML UDP PO SCH ×2 (09:18→16:53)
--- NOTE | 2017-05-06 20:36 | Progress Note ---
Medicine Progress Note Date & Time of Visit: May 06, 2017 at 10:40 . Subjective Doing fairly well. No fever. Cough and dyspnea improved. No chest pain. No significant bradycardia since discontinuing diltiazem. Appetite fairly good. No nausea or vomiting. No bowel movements this morning. Having some urinary incontinence without significant retention. . Objective Last 8 Hrs Date Time Temp Pulse Resp B/P (MAP) Pulse Ox O2 Delivery O2 Flow Rate FiO2 05/06/17 19:11 78 18 96 Nasal Cannula 2.0 05/06/17 19:07 36.7 104 18 148/95 (112) 100 Nasal Cannula 2.0 05/06/17 16:00 Nasal Cannula 2.0 05/06/17 15:16 36.6 97 18 155/83 (107) 95 Room Air 05/06/17 14:19 82 14 93 Nasal Cannula 1.0 Physical Exam: General- lying in bed, no distress Neck- wearing cervical collar Lungs- essentially clear; no respiratory distress Cardiovascular- irregular; no gallop appreciated; unable to assess neck veins; trace pretibial edema Abdomen- + bowel sounds, soft, nontender Extremities- no cyanosis; no calf tenderness Neuro- alert, mild confusion Skin- warm & dry . Laboratory Results: Last 24 Hours Test 05/06/17 06:37 05/06/17 11:07 05/06/17 16:28 Bedside Glucose 126 mg/dl 173 mg/dl 135 mg/dl Assessment & Plan ASPIRATION PNEUMONIA Presented with apparent aspiration pneumonia after episode of nausea and vomiting. Doing better. Afebrile. Oxygenating well on nasal cannula. Nasal MRSA screen negative, so MRSA pneumonia very unlikely. Vancomycin discontinued. Received piperacillin/tazobactam for a few days, then transitioned to oral therapy with amoxicillin/clavulanic acid. ASPIRATION Had a recent swallowing evaluation at [facility]. TYPISTS SUPERVISOR consulted. No need for repeat video swallow at this time. Continue aspiration precautions. ALTERED MENTAL STATUS Brief episode of decreased responsiveness noted at [facility]. Episodes of bradycardia noted here on telemetry. Continue to monitor for arrhythmias. CORONARY ARTERY DISEASE No anginal symptoms. ATRIAL FIBRILLATION Rate slow at times. Diltiazem discontinued. Continue metoprolol. Warfarin recently discontinued due to fall risk. DM TYPE II Hemoglobin A1c 7.3 on 04/27/17. FBS this morning 126. Stop Lantus. Continue NovoLog per protocol. ODONTOID FRACTURE Continue cervical collar. URINARY INCONTINENCE Low postvoid residuals by US. VTE PROPHYLAXIS SQ heparin. DISPOSITION Expected to return to [facility] for skilled care. Family Medicine follow-up with Dr. Dietrich. . Current Inpatient Medications: Current Inpatient Medications Medications (Trade) Dose Ordered Sig/Rc Route Start Time Stop Time Status Last Admin Dose Admin Heparin Sodium (Porcine) (Heparin Sq 5000 Unit/0.5ml) 5,000 unit Q12 SQ 05/01/17 21:00 05/31/17 20:59 05/06/17 08:15 5,000 UNIT Acetaminophen (Tylenol Tab) 650 mg Q4H PRN PO 05/01/17 13:00 05/31/17 12:59 05/06/17 12:28 650 MG Magnesium Hydroxide (Milk Of Magnesia Susp) 30 ml Q12H PRN PO 05/01/17 13:00 05/31/17 12:59 05/03/17 11:57 30 ML Ondansetron HCl (Zofran Inj) 4 mg Q6H PRN IV 05/01/17 13:00 05/31/17 12:59 05/02/17 08:29 4 MG Nitroglycerin (Nitrostat Tab) 0.4 mg UD PRN SL 05/01/17 13:00 05/31/17 12:59 Aspirin (Ecotrin Tab) 81 mg QAM PO 05/02/17 09:00 06/01/17 08:59 05/06/17 07:57 81 MG Docusate Sodium (coLACE CAP) 100 mg BID PO 05/01/17 21:00 05/31/17 20:59 05/06/17 07:56 100 MG Duloxetine HCl (Cymbalta Cap) 30 mg QAM PO 05/02/17 09:00 06/01/17 08:59 05/06/17 07:55 30 MG Lorazepam (Ativan Tab) 1 mg TID PRN PO 05/01/17 13:30 05/31/17 13:29 05/03/17 08:41 1 MG Metoprolol Tartrate (Lopressor Tab) 25 mg BID PO 05/01/17 21:00 05/31/17 20:59 05/06/17 07:55 25 MG Nystatin (Mycostatin Crm) 1 appln BID EXT 05/01/17 21:00 05/31/17 20:59 05/06/17 07:56 1 APPLN Ipratropium [place] (Atrovent 0.02% 0.5MG/2.5ML Neb) 0.5 mg Q4H PRN INH 05/01/17 13:45 05/31/17 13:44 Levalbuterol (Xopenex 0.63 Mg/ 3 Ml Neb) 0.63 mg Q4H PRN INH 05/01/17 13:45 05/31/17 13:44 Ipratropium [place] (Atrovent 0.02% 0.5MG/2.5ML Neb) 0.5 mg Q6R INH 05/01/17 15:00 05/31/17 14:59 05/06/17 19:11 0.5 MG Levalbuterol (Xopenex 1.25MG/ 0.5ML Neb) 1.25 mg Q6R INH 05/01/17 15:00 05/31/17 14:59 05/06/17 19:11 1.25 MG Insulin Aspart (novoLOG ASPART) SLIDING SCALE If C... ACHS SC 05/01/17 16:00 05/31/17 15:59 05/06/17 17:16 1 UNITS Glucose (Glucose 40% Gel) 15-30 GRAMS 15 GRAMS... UD PRN PO 05/01/17 14:00 05/31/17 13:59 Glucose (Glucose Chew Tab) 4-8 Tablets 4 Tabl... UD PRN PO 05/01/17 14:00 05/31/17 13:59 Dextrose (Dextrose 50% 50ML Syringe) 25-50ML OF 50% DW IV FOR... UD PRN IV 05/01/17 14:00 05/31/17 13:59 Glucagon (Glucagon Inj) 1 mg UD PRN SQ 05/01/17 14:00 05/31/17 13:59 Enteral Nutritional Formula (Boost Glucose Control) 1 can BIDM PO 05/04/17 07:30 06/03/17 07:29 05/06/17 08:15 1 CAN Amoxicillin/ Clavulanate Potassium (Amoxicillin/ Clavulanate 600MG/ 42.9MG 5 Ml NALLELY) 600 mg BIDM PO 05/06/17 07:30 05/13/17 07:29 05/06/17 16:53 600 MG Potassium Chloride (Klor-Con Tab) 20 meq BID PO 05/05/17 21:00 06/04/17 20:59 05/06/17 07:56 20 MEQ
[2017-05-07] VITALS (10 sets, daily range): BP systolic 131–146; BP diastolic 75–87; PULSE 73–111; TEMP 36.4–37.1; O2SAT 91–98
[2017-05-07] MEDS: IPRATROPIUM BROMIDE NEB SOLN 0.02% 2.5 ML VIAL INH SCH ×4 (03:00→19:53)
[2017-05-07] MEDS: LEVALBUTEROL 1.25MG/0.5ML NEB INH SCH ×4 (03:00→19:53)
[2017-05-07] MEDS: ACETAMINOPHEN 325 MG TAB PO PRN ×3 (03:09→19:47)
[2017-05-07 05:56] LABS: HEMOGLOBIN 10.7 g/dL (14.0-18.0); MEAN CELL VOLUME 89.9 fL (80-100); MEAN CORPUSCULAR HEMOGLOBIN 29.2 pg (25-34); MEAN CORPUSCULAR HGB CONC 32.4 g/dl (32-36); MEAN PLATELET VOLUME 9.7 fL (7.4-10.4); PLATELET COUNT 351 K/uL (130-400); RED CELL DISTRIBUTION WIDTH SD 46.1 fL (36.4-46.3); WHITE BLOOD COUNT 9.83 K/uL (4.8-10.8)
[2017-05-07 06:27] LABS: CALCIUM 8.3 mg/dl (8.5-10.1); CREATININE 0.82 mg/dl (0.60-1.40); POTASSIUM 4.7 mmol/L (3.5-5.1)
[2017-05-07] MEDS: BOOST GLUCOSE CONTROL PO SCH ×2 (08:00→17:53)
[2017-05-07] MEDS: AMOXICILLIN/CLAVULANATE POTAS 600 MG/5 ML UDP PO SCH ×2 (08:00→17:53)
[2017-05-07] MEDS: DOCUSATE SODIUM 100 MG CAP PO SCH ×2 (08:01→21:00)
[2017-05-07] MEDS: DULOXETINE (CYMBALTA) 30 MG CAP PO SCH (08:01)
[2017-05-07] MEDS: METOPROLOL TARTRATE 25 MG TAB PO SCH ×2 (08:05→21:07)
[2017-05-07] MEDS: POTASSIUM CHLORIDE 20 MEQ TABCR PO SCH ×2 (08:05→21:07)
[2017-05-07] MEDS: ASPIRIN 81 MG ECTAB PO SCH (08:05)
[2017-05-07] MEDS: NYSTATIN CR 15 GM TUBE EXT SCH ×2 (08:06→21:06)
[2017-05-07] MEDS: HEPARIN SOD 5000 UNIT/0.5 ML CARP SQ SCH ×2 (08:26→21:05)
[2017-05-07] MEDS: INSULIN ASPART 100 UNITS/ML 3 ML PEN SC SCH ×4 (08:36→21:00)
[2017-05-07] MEDS ORDERED: DILTIAZEM HCL 120 MG CAPCR PO ONE (11:45)
--- NOTE | 2017-05-07 20:59 | Progress Note ---
Medicine Progress Note Date & Time of Visit: May 07, 2017 at 11:10 . Subjective Cough and dyspnea improved. No fever. No chest pain. Appetite fair; no nausea or vomiting. No diarrhea. Ongoing problems with urinary incontinence. Complains of frontal headache this morning which he states he has been experiencing since his fall last month. . Objective Last 8 Hrs Date Time Temp Pulse Resp B/P (MAP) Pulse Ox O2 Delivery O2 Flow Rate FiO2 05/07/17 20:41 36.6 95 18 133/82 (99) 95 Room Air 05/07/17 19:53 73 16 95 Room Air 05/07/17 16:00 Nasal Cannula 2.0 05/07/17 15:10 36.8 90 18 131/75 (93) 92 Nasal Cannula 2.0 05/07/17 14:18 88 16 93 Room Air Physical Exam: General- lying in bed, no distress Neck- wearing cervical collar Lungs- essentially clear; no respiratory distress Cardiovascular- irregular; no gallop appreciated; unable to assess neck veins; trace pretibial edema Abdomen- + bowel sounds, soft, nontender Extremities- no cyanosis; no calf tenderness Neuro- alert Skin- warm & dry . Laboratory Results: Last 24 Hours Test 05/07/17 05:19 05/07/17 06:49 05/07/17 11:06 05/07/17 16:32 White Blood Count 9.83 K/uL Red Blood Count 3.67 M/uL Hemoglobin 10.7 g/dL Hematocrit 33.0 % Mean Corpuscular Volume 89.9 fL Mean Corpuscular Hemoglobin 29.2 pg Mean Corpuscular Hemoglobin Concent 32.4 g/dl RDW Standard Deviation 46.1 fL RDW Coefficient of Variation 14.0 % Platelet Count 351 K/uL Mean Platelet Volume 9.7 fL Sodium Level 134 mmol/L Potassium Level 4.7 mmol/L Chloride Level 102 mmol/L Carbon Dioxide Level 25 mmol/L Anion Gap 7.0 mmol/L Blood Urea Nitrogen 10 mg/dl Creatinine 0.82 mg/dl Est Creatinine Clear Calc Drug Dose 47.0 ml/min Estimated GFR () 91.5 Estimated GFR (Non- 79.0 BUN/Creatinine Ratio 12.4 Random Glucose 105 mg/dl Calcium Level 8.3 mg/dl Bedside Glucose 114 mg/dl 139 mg/dl 130 mg/dl Test 05/07/17 20:37 Bedside Glucose 144 mg/dl Assessment & Plan ASPIRATION PNEUMONIA Presented with apparent aspiration pneumonia after episode of nausea and vomiting. Doing better. Afebrile. Oxygenating well on nasal cannula. Nasal MRSA screen negative, so MRSA pneumonia very unlikely. Vancomycin discontinued. Received piperacillin/tazobactam for a few days, then transitioned to oral therapy with amoxicillin/clavulanic acid. ASPIRATION Had a recent swallowing evaluation at [facility]. [employer] consulted. No need for repeat video swallow at this time. Continue aspiration precautions. ALTERED MENTAL STATUS Brief episode of decreased responsiveness noted at [facility]. Episodes of bradycardia noted here on telemetry. Continue to monitor for arrhythmias. CORONARY ARTERY DISEASE No anginal symptoms. ATRIAL FIBRILLATION Rate slow at times, especially at night. Diltiazem discontinued because of bradycardia. Ventricular rate now bedfast during the daytime, so we will resume diltiazem at a reduced dose of 120 mg daily in a controlled release formulation. Continue metoprolol. Warfarin recently discontinued due to fall risk. DM TYPE II Hemoglobin A1c 7.3 on 04/27/17. FBS this morning 114. Initially received Lantus, but it was discontinued because of low fasting sugars. Continue NovoLog per protocol. ODONTOID FRACTURE Continue cervical collar. URINARY INCONTINENCE Low postvoid residuals by US. HEADACHE Patient complains of frontal headache for the past few weeks since his fall. Head CT negative upon admission. Continue analgesics as needed. VTE PROPHYLAXIS SQ heparin. DISPOSITION Expected to return to [facility] for skilled care. Family Medicine follow-up with Dr. Dietrich. . Current Inpatient Medications: Current Inpatient Medications Medications (Trade) Dose Ordered Sig/Rc Route Start Time Stop Time Status Last Admin Dose Admin Heparin Sodium (Porcine) (Heparin Sq 5000 Unit/0.5ml) 5,000 unit Q12 SQ 05/01/17 21:00 05/31/17 20:59 05/07/17 08:26 5,000 UNIT Acetaminophen (Tylenol Tab) 650 mg Q4H PRN PO 05/01/17 13:00 05/31/17 12:59 05/07/17 19:47 650 MG Magnesium Hydroxide (Milk Of Magnesia Susp) 30 ml Q12H PRN PO 05/01/17 13:00 05/31/17 12:59 05/03/17 11:57 30 ML Ondansetron HCl (Zofran Inj) 4 mg Q6H PRN IV 05/01/17 13:00 05/31/17 12:59 05/02/17 08:29 4 MG Nitroglycerin (Nitrostat Tab) 0.4 mg UD PRN SL 05/01/17 13:00 05/31/17 12:59 Aspirin (Ecotrin Tab) 81 mg QAM PO 05/02/17 09:00 06/01/17 08:59 05/07/17 08:05 81 MG Docusate Sodium (coLACE CAP) 100 mg BID PO 05/01/17 21:00 05/31/17 20:59 05/07/17 08:01 100 MG Duloxetine HCl (Cymbalta Cap) 30 mg QAM PO 05/02/17 09:00 06/01/17 08:59 05/07/17 08:01 30 MG Lorazepam (Ativan Tab) 1 mg TID PRN PO 05/01/17 13:30 05/31/17 13:29 05/03/17 08:41 1 MG Metoprolol Tartrate (Lopressor Tab) 25 mg BID PO 05/01/17 21:00 05/31/17 20:59 05/07/17 08:05 25 MG Nystatin (Mycostatin Crm) 1 appln BID EXT 05/01/17 21:00 05/31/17 20:59 05/07/17 08:06 1 APPLN Ipratropium [place] (Atrovent 0.02% 0.5MG/2.5ML Neb) 0.5 mg Q4H PRN INH 05/01/17 13:45 05/31/17 13:44 Levalbuterol (Xopenex 0.63 Mg/ 3 Ml Neb) 0.63 mg Q4H PRN INH 05/01/17 13:45 05/31/17 13:44 Ipratropium [place] (Atrovent 0.02% 0.5MG/2.5ML Neb) 0.5 mg Q6R INH 05/01/17 15:00 05/31/17 14:59 05/07/17 19:53 0.5 MG Levalbuterol (Xopenex 1.25MG/ 0.5ML Neb) 1.25 mg Q6R INH 05/01/17 15:00 05/31/17 14:59 4/2/18 19:53 1.25 MG Insulin Aspart (novoLOG ASPART) SLIDING SCALE If C... ACHS SC 05/01/17 16:00 05/31/17 15:59 05/07/17 17:57 1 UNITS Glucose (Glucose 40% Gel) 15-30 GRAMS 15 GRAMS... UD PRN PO 05/01/17 14:00 05/31/17 13:59 Glucose (Glucose Chew Tab) 4-8 Tablets 4 Tabl... UD PRN PO 05/01/17 14:00 05/31/17 13:59 Dextrose (Dextrose 50% 50ML Syringe) 25-50ML OF 50% DW IV FOR... UD PRN IV 05/01/17 14:00 05/31/17 13:59 Glucagon (Glucagon Inj) 1 mg UD PRN SQ 05/01/17 14:00 05/31/17 13:59 Enteral Nutritional Formula (Boost Glucose Control) 1 can BIDM PO 05/04/17 07:30 06/03/17 07:29 05/07/17 17:53 1 CAN Amoxicillin/ Clavulanate Potassium (Amoxicillin/ Clavulanate 600MG/ 42.9MG 5 Ml NALLELY) 600 mg BIDM PO 05/06/17 07:30 05/13/17 07:29 05/07/17 17:53 600 MG Potassium Chloride (Klor-Con Tab) 20 meq BID PO 05/05/17 21:00 06/04/17 20:59 05/07/17 08:05 20 MEQ Diltiazem HCl (Cardizem Cd Cap) 120 mg QAM PO 05/08/17 09:00 06/07/17 08:59
[2017-05-08] VITALS (10 sets, daily range): BP systolic 109–156; BP diastolic 65–87; PULSE 72–89; TEMP 36.5–37.1; O2SAT 90–97
[2017-05-08] MEDS: IPRATROPIUM BROMIDE NEB SOLN 0.02% 2.5 ML VIAL INH SCH ×4 (01:44→18:58)
[2017-05-08] MEDS: LEVALBUTEROL 1.25MG/0.5ML NEB INH SCH ×4 (01:45→18:58)
[2017-05-08] MEDS: ACETAMINOPHEN 325 MG TAB PO PRN ×3 (03:12→20:30)
[2017-05-08 07:22] LABS: CALCIUM 8.4 mg/dl (8.5-10.1); CREATININE 0.73 mg/dl (0.60-1.40); POTASSIUM 4.4 mmol/L (3.5-5.1)
[2017-05-08] MEDS: AMOXICILLIN/CLAVULANATE POTAS 600 MG/5 ML UDP PO SCH ×2 (08:23→18:17)
[2017-05-08] MEDS: BOOST GLUCOSE CONTROL PO SCH ×2 (08:23→18:17)
[2017-05-08] MEDS: POTASSIUM CHLORIDE 20 MEQ TABCR PO SCH ×2 (08:23→20:30)
[2017-05-08] MEDS: DULOXETINE (CYMBALTA) 30 MG CAP PO SCH (08:29)
[2017-05-08] MEDS: DOCUSATE SODIUM 100 MG CAP PO SCH ×2 (08:29→20:30)
[2017-05-08] MEDS: DILTIAZEM HCL 120 MG CAPCR PO SCH (08:30)
[2017-05-08] MEDS: NYSTATIN CR 15 GM TUBE EXT SCH ×2 (08:30→20:30)
[2017-05-08] MEDS: ASPIRIN 81 MG ECTAB PO SCH (08:30)
[2017-05-08] MEDS: METOPROLOL TARTRATE 25 MG TAB PO SCH ×2 (08:30→20:31)
[2017-05-08] MEDS: INSULIN ASPART 100 UNITS/ML 3 ML PEN SC SCH ×4 (08:32→20:29)
[2017-05-08] MEDS: HEPARIN SOD 5000 UNIT/0.5 ML CARP SQ SCH ×2 (08:35→20:29)
--- NOTE | 2017-05-08 17:10 | DIAGNOSTIC IMAGING REPORT ---
HEAD CT NONCONTRAST CT DOSE: 990.40 mGy.cm HISTORY: severe frontal headache TECHNIQUE: Multiaxial CT images of the head were performed without the use of intravenous contrast. Automated exposure control was utilized for this study. A dose lowering technique was utilized adhering to the principles of ALARA. Comparison: Head CT 05/01/2017. Findings: The paranasal sinuses and mastoid air cells are clear. The calvarium and skull base are intact. There is no mass, hematoma, midline shift, acute infarct. White matter hypodensity is nonspecific but suggestive of microvascular ischemic change. The ventricles and sulci demonstrate mild age-related involutional changes. Old lacunar infarcts seen within the right thalamus and old small infarct within the left high convexity. These remain unchanged. Impression: No significant change compared to the prior study. No acute intracranial abnormality. Electronically signed by: Cuong House M.D. 05/08/2017 5:09 PM Dictated Date/Time: 05/08/2017 5:03 PM
--- NOTE | 2017-05-08 17:30 | DIAGNOSTIC IMAGING REPORT ---
CERVICAL SPINE CT CT DOSE: HISTORY: f/u odontoid fracture TECHNIQUE: Multiaxial CT images of the cervical spine were performed and reformatted in the sagittal and coronal plane without the use of contrast. A dose lowering technique was utilized adhering to the principles of ALARA. COMPARISON: Cervical spine CT 04/02/2017. FINDINGS: Redemonstration of the type II odontoid fracture which demonstrates 4 mm of posterior displacement. This is not significantly changed. There may be minimal callus formation compared to the prior study. However, there is no significant bony bridging of the fracture. Persistent 4 mm of posterior displacement of the odontoid and relation to the C2 body. The soft tissue thickening posterior to the odontoid is stable slightly improved. There is moderate central canal narrowing at the C2 level due to the posterior displacement. This is also unchanged. Healing superior endplate compression fracture at T3 which demonstrates mild loss of height. No acute fractures identified within the cervical spine. 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 Prevertebral soft tissues are intact. 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 No pneumothorax. Mild emphysema. Partially visualized right pleural effusion which is likely moderate in size. IMPRESSION: 1. No significant healing and no significant change in the displaced odontoid type II fracture as described above. This is consistent with an unstable fracture. 2. Subacute/healing mild superior endplate compression fracture at T3. 3. No acute fractures identified within the cervical spine. 4. Right pleural effusion. Electronically signed by: Cuong House M.D. 05/08/2017 5:29 PM Dictated Date/Time: 05/08/2017 5:17 PM
--- NOTE | 2017-05-08 20:13 | Progress Note ---
Medicine Progress Note Date & Time of Visit: May 08, 2017 at 10:20 . Subjective No fever. Cough & dyspnea improved. No chest pain. Appetite fair; PO intake variable. No nausea or vomiting. No diarrhea. Ongoing problems with urinary incontinence without significant residuals. Intermittent headaches, especially when he stands up. . Objective Last 8 Hrs Date Time Temp Pulse Resp B/P (MAP) Pulse Ox O2 Delivery O2 Flow Rate FiO2 05/08/17 18:58 73 20 94 Room Air 05/08/17 16:05 Room Air 05/08/17 15:51 36.8 72 18 130/79 (96) 95 Room Air 05/08/17 15:17 77 148/72 (97) 118/65 (82) 136/87 (103) 05/08/17 14:07 77 20 91 Room Air 05/08/17 12:05 Room Air 05/08/17 11:59 36.5 88 20 147/65 (92) 92 Room Air Physical Exam: General- lying in bed, no distress Neck- wearing cervical collar Lungs- few rhonchi, otherwise essentially clear; no respiratory distress Cardiovascular- irregular; no gallop appreciated; unable to assess neck veins; trace pretibial edema Abdomen- + bowel sounds, soft, nontender Extremities- no cyanosis; no calf tenderness Neuro- alert, confused (oriented only to person, thinks that he is in his home town [facility], thinks that it is 1998). Skin- warm & dry . Laboratory Results: Last 24 Hours Test 05/07/17 20:37 05/08/17 06:22 05/08/17 06:40 05/08/17 10:54 Bedside Glucose 144 mg/dl 104 mg/dl 176 mg/dl Sodium Level 133 mmol/L Potassium Level 4.4 mmol/L Chloride Level 102 mmol/L Carbon Dioxide Level 25 mmol/L Anion Gap 6.0 mmol/L Blood Urea Nitrogen 10 mg/dl Creatinine 0.73 mg/dl Est Creatinine Clear Calc Drug Dose 54.4 ml/min Estimated GFR () 96.0 Estimated GFR (Non- 82.8 BUN/Creatinine Ratio 13.5 Random Glucose 95 mg/dl Calcium Level 8.4 mg/dl Test 05/08/17 16:26 Bedside Glucose 141 mg/dl Assessment & Plan ASPIRATION PNEUMONIA Presented with apparent aspiration pneumonia after episode of nausea and vomiting. Doing better. Afebrile. Oxygenating well on nasal cannula. Nasal MRSA screen negative, so MRSA pneumonia very unlikely. Vancomycin discontinued. Received piperacillin/tazobactam for a few days, then transitioned to oral therapy with amoxicillin/clavulanic acid. Tentative course of treatment 10 days- today is day # 8/10. ASPIRATION Had a recent swallowing evaluation at [facility]. TRAVEL OT consulted. No need for repeat video swallow at this time. Continue aspiration precautions. LOSS OF CONSCIOUSNESS Brief episode of decreased responsiveness noted at [facility]. Episodes of bradycardia noted here on telemetry. Continue to monitor for arrhythmias. CORONARY ARTERY DISEASE No anginal symptoms. ATRIAL FIBRILLATION Rate slow at times, especially at night. Diltiazem 60 mg QID discontinued because of bradycardia. Once rate improved, diltiazem resumed with sustained release formulation 120 mg in the morning. Warfarin recently discontinued due to fall risk. DM TYPE II Hemoglobin A1c 7.3 on 04/27/17. FBS this morning 104. Was taking metformin and sitagliptin at home which has been discontinued. Initially received Lantus, but it was discontinued because of low fasting sugars. Continue NovoLog per protocol. ODONTOID FRACTURE Nonsurgical management recommended at [facility]. Continue cervical collar. Check f/u CT. URINARY INCONTINENCE Low postvoid residuals by US. HEADACHE Patient complains of frontal headache for the past few weeks since his fall. Head CT negative upon admission. Ongoing headaches, especially when upright. Not orthostatic. Check follow-up CT to rule out bleed or other new findings. Continue analgesics as needed. NUTRITION / WEIGHT LOSS Family reports significant weight loss since fall on 04/02/17. PO intake has been variable, but generally poor. Could have underlying malignancy to explain weight loss, but recent CT imaging of chest, abdomen, pelvis at [facility] did not show any apparent malignancy. TSH slightly low, free T4 normal. Being followed by dietary team. Check calorie counts. May need to consider enteral nutritional support with NGT or PEG if nutritional intake remains inadequate. DEMENTIA / DELIRIUM Patient has been confused, usually oriented only to person. Had delirium during stay at [facility]. No prior history of overt dementia per family. No history of alcohol abuse. Avoid meds with [employer] side effects as much as possible. TSH slightly low, free T4 normal. Check B12, thiamine. VTE PROPHYLAXIS Receiving SQ heparin. Ambulate as able. DISPOSITION Expected to return to [facility] for skilled care. Family Medicine follow-up with Dr. Dietrich. ADDENDUM: CT head negative for acute findings. Small vessel ischemic changes and old lacunar strokes noted. CT cervical spine demonstrated previously noted displaced odontoid type II odontoid fracture, similar to previous scan on 04/02/17. Son Rohan given update by phone. Patient due for f/u appt at [facility] for odontoid fracture, but cannot go at this time due to current hospitalization. Will ask Ortho Spine to see him here. Case discussed with Dr. Guerrero. . Current Inpatient Medications: Current Inpatient Medications Medications (Trade) Dose Ordered Sig/Rc Route Start Time Stop Time Status Last Admin Dose Admin Heparin Sodium (Porcine) (Heparin Sq 5000 Unit/0.5ml) 5,000 unit Q12 SQ 05/01/17 21:00 05/31/17 20:59 05/08/17 08:35 5,000 UNIT Acetaminophen (Tylenol Tab) 650 mg Q4H PRN PO 05/01/17 13:00 05/31/17 12:59 05/08/17 11:32 650 MG Magnesium Hydroxide (Milk Of Magnesia Susp) 30 ml Q12H PRN PO 05/01/17 13:00 05/31/17 12:59 05/03/17 11:57 30 ML Ondansetron HCl (Zofran Inj) 4 mg Q6H PRN IV 05/01/17 13:00 05/31/17 12:59 05/02/17 08:29 4 MG Nitroglycerin (Nitrostat Tab) 0.4 mg UD PRN SL 05/01/17 13:00 05/31/17 12:59 Aspirin (Ecotrin Tab) 81 mg QAM PO 05/02/17 09:00 06/01/17 08:59 05/08/17 08:30 81 MG Docusate Sodium (coLACE CAP) 100 mg BID PO 05/01/17 21:00 05/31/17 20:59 05/08/17 08:29 100 MG Duloxetine HCl (Cymbalta Cap) 30 mg QAM PO 05/02/17 09:00 06/01/17 08:59 05/08/17 08:29 30 MG Metoprolol Tartrate (Lopressor Tab) 25 mg BID PO 05/01/17 21:00 05/31/17 20:59 05/08/17 08:30 25 MG Nystatin (Mycostatin Crm) 1 appln BID EXT 05/01/17 21:00 05/31/17 20:59 05/08/17 08:30 1 APPLN Ipratropium [place] (Atrovent 0.02% 0.5MG/2.5ML Neb) 0.5 mg Q4H PRN INH 05/01/17 13:45 05/31/17 13:44 Levalbuterol (Xopenex 0.63 Mg/ 3 Ml Neb) 0.63 mg Q4H PRN INH 05/01/17 13:45 05/31/17 13:44 Ipratropium [place] (Atrovent 0.02% 0.5MG/2.5ML Neb) 0.5 mg Q6R INH 05/01/17 15:00 05/31/17 14:59 05/08/17 18:58 0.5 MG Levalbuterol (Xopenex 1.25MG/ 0.5ML Neb) 1.25 mg Q6R INH 05/01/17 15:00 05/31/17 14:59 05/08/17 18:58 1.25 MG Insulin Aspart (novoLOG ASPART) SLIDING SCALE If C... ACHS SC 05/01/17 16:00 05/31/17 15:59 05/08/17 12:30 1 UNITS Glucose (Glucose 40% Gel) 15-30 GRAMS 15 GRAMS... UD PRN PO 05/01/17 14:00 05/31/17 13:59 Glucose (Glucose Chew Tab) 4-8 Tablets 4 Tabl... UD PRN PO 05/01/17 14:00 05/31/17 13:59 Dextrose (Dextrose 50% 50ML Syringe) 25-50ML OF 50% DW IV FOR... UD PRN IV 05/01/17 14:00 05/31/17 13:59 Glucagon (Glucagon Inj) 1 mg UD PRN SQ 05/01/17 14:00 05/31/17 13:59 Enteral Nutritional Formula (Boost Glucose Control) 1 can BIDM PO 05/04/17 07:30 06/03/17 07:29 05/08/17 18:17 1 CAN Amoxicillin/ Clavulanate Potassium (Amoxicillin/ Clavulanate 600MG/ 42.9MG 5 Ml NALLELY) 600 mg BIDM PO 05/06/17 07:30 05/13/17 07:29 05/08/17 18:17 600 MG Potassium Chloride (Klor-Con Tab) 20 meq BID PO 05/05/17 21:00 06/04/17 20:59 05/08/17 08:23 20 MEQ Diltiazem HCl (Cardizem Cd Cap) 120 mg QAM PO 05/08/17 09:00 06/07/17 08:59 05/08/17 08:30 120 MG
[2017-05-08] MEDS ORDERED: TRAMADOL HCL 50 MG TAB PO PRN (20:15)
[2017-05-09] VITALS (11 sets, daily range): BP systolic 124–164; BP diastolic 63–84; PULSE 73–95; TEMP 36.4–37.2; O2SAT 91–95
[2017-05-09] MEDS: LEVALBUTEROL 1.25MG/0.5ML NEB INH SCH ×4 (02:09→19:31)
[2017-05-09 07:11] LABS: CALCIUM 8.3 mg/dl (8.5-10.1); CREATININE 0.79 mg/dl (0.60-1.40); POTASSIUM 4.8 mmol/L (3.5-5.1)
[2017-05-09] MEDS: BOOST GLUCOSE CONTROL PO SCH ×2 (07:44→16:45)
[2017-05-09] MEDS: INSULIN ASPART 100 UNITS/ML 3 ML PEN SC SCH ×4 (07:53→21:00)
[2017-05-09] MEDS: AMOXICILLIN/CLAVULANATE POTAS 600 MG/5 ML UDP PO SCH ×2 (07:57→17:04)
[2017-05-09] MEDS: NYSTATIN CR 15 GM TUBE EXT SCH ×2 (08:46→20:50)
[2017-05-09] MEDS: DULOXETINE (CYMBALTA) 30 MG CAP PO SCH (08:53)
[2017-05-09] MEDS: DOCUSATE SODIUM 100 MG CAP PO SCH ×2 (08:53→20:51)
[2017-05-09] MEDS: DILTIAZEM HCL 120 MG CAPCR PO SCH (08:53)
[2017-05-09] MEDS: METOPROLOL TARTRATE 25 MG TAB PO SCH ×2 (08:53→20:52)
[2017-05-09] MEDS: ASPIRIN 81 MG ECTAB PO SCH (08:54)
[2017-05-09] MEDS: HEPARIN SOD 5000 UNIT/0.5 ML CARP SQ SCH ×2 (08:55→20:56)
[2017-05-09] MEDS: POTASSIUM CHLORIDE 20 MEQ TABCR PO SCH (08:56)
[2017-05-09] MEDS: ACETAMINOPHEN 325 MG TAB PO PRN (12:26)
--- NOTE | 2017-05-09 14:31 | Orthopedic Consultation ---
Orthopedic Consultation Date of Consultation: May 09, 2017. Attending Physician: Bess Rivas DO Reason for Consultation: Type II odontoid fracture History of Present Illness This is a 86-year-old male admitted recently with pneumonia and atrial fib. He status post odontoid fracture in March of this year. He is currently wearing a rigid collar as a treatment plan. Today he does note some discomfort with the collar. He denies any numbness or tingling in the upper extremities. Past Medical/Surgical History Medical Problems: (1) Dens fracture Status: Acute (2) Syncope Status: Acute Family History FH: colon cancer Social History Smoking Status: Former Smoker (Pt reports quit 1 month ago, was smoking 0.25ppd x 65 years) Smokeless Tobacco Use: No Alcohol Use: none Drug Use: none Marital Status: Housing Status: lives with significant other Occupation Status: retired Allergies Coded Allergies: Nortriptyline (Verified Allergy, Severe, CHEST PAIN-"BURNING FROM MID CHEST TO THROAT"., 05/01/17) Home Medications Scheduled Aspirin (Aspirin Ec), 81 MG PO QAM Diltiazem Hcl (Cardizem), 1 TAB PO Q6H Docusate Sodium (Stool Softener), 100 MG PO BID Duloxetine HCl (Cymbalta), 30 MG PO QAM Insulin Aspart (Novolog), 8 UNITS SQ TIDM Insulin Glargine (Lantus), 16 UNITS SC QPM Iron-Vitamin C (Vitron-C), 1 TAB PO BID Levofloxacin (Levaquin), 500 MG PO DAILY Melatonin (Kp Melatonin), 3 MG PO HS Metoprolol Tartrate (Lopressor), 25 MG PO BID Nystatin (Nystatin Cream), 0 EXT BID Ondansetron Hcl (Zofran), 8 MG PO Q8 Sitagliptin Phosphate (Januvia), 1 TAB PO DAILY Scheduled PRN Loperamide Hcl (Imodium A-D), 2 MG PO DIRECTED PRN for Diarrhea Lorazepam (Ativan), 1 MG PO TID PRN for Anxiety/Agitation Naproxen (Aleve), 220 MG PO BID w/food PRN for Moderate Pain Oxycodone Ir (Roxicodone Ir), 1 TAB PO Q4H PRN for Pain Current Inpatient Medications Current Inpatient Medications Medications (Trade) Dose Ordered Sig/Rc Route Start Time Stop Time Status Last Admin Dose Admin Heparin Sodium (Porcine) (Heparin Sq 5000 Unit/0.5ml) 5,000 unit Q12 SQ 05/01/17 21:00 05/31/17 20:59 05/09/17 08:55 5,000 UNIT Acetaminophen (Tylenol Tab) 650 mg Q4H PRN PO 05/01/17 13:00 05/31/17 12:59 05/09/17 12:26 650 MG Magnesium Hydroxide (Milk Of Magnesia Susp) 30 ml Q12H PRN PO 05/01/17 13:00 05/31/17 12:59 05/03/17 11:57 30 ML Ondansetron HCl (Zofran Inj) 4 mg Q6H PRN IV 05/01/17 13:00 05/31/17 12:59 05/02/17 08:29 4 MG Nitroglycerin (Nitrostat Tab) 0.4 mg UD PRN SL 05/01/17 13:00 05/31/17 12:59 Aspirin (Ecotrin Tab) 81 mg QAM PO 05/02/17 09:00 06/01/17 08:59 05/09/17 08:54 81 MG Docusate Sodium (coLACE CAP) 100 mg BID PO 05/01/17 21:00 05/31/17 20:59 05/09/17 08:53 100 MG Duloxetine HCl (Cymbalta Cap) 30 mg QAM PO 05/02/17 09:00 06/01/17 08:59 05/09/17 08:53 30 MG Metoprolol Tartrate (Lopressor Tab) 25 mg BID PO 05/01/17 21:00 05/31/17 20:59 05/09/17 08:53 25 MG Nystatin (Mycostatin Crm) 1 appln BID EXT 05/01/17 21:00 05/31/17 20:59 05/09/17 08:46 1 APPLN Levalbuterol (Xopenex 0.63 Mg/ 3 Ml Neb) 0.63 mg Q4H PRN INH 05/01/17 13:45 05/31/17 13:44 Levalbuterol (Xopenex 1.25MG/ 0.5ML Neb) 1.25 mg Q6R INH 05/01/17 15:00 05/31/17 14:59 05/09/17 02:09 1.25 MG Insulin Aspart (novoLOG ASPART) SLIDING SCALE If C... ACHS SC 05/01/17 16:00 05/31/17 15:59 05/09/17 11:55 1 UNITS Glucose (Glucose 40% Gel) 15-30 GRAMS 15 GRAMS... UD PRN PO 05/01/17 14:00 05/31/17 13:59 Glucose (Glucose Chew Tab) 4-8 Tablets 4 Tabl... UD PRN PO 05/01/17 14:00 05/31/17 13:59 Dextrose (Dextrose 50% 50ML Syringe) 25-50ML OF 50% DW IV FOR... UD PRN IV 05/01/17 14:00 05/31/17 13:59 Glucagon (Glucagon Inj) 1 mg UD PRN SQ 05/01/17 14:00 05/31/17 13:59 Enteral Nutritional Formula (Boost Glucose Control) 1 can BIDM PO 05/04/17 07:30 06/03/17 07:29 05/09/17 07:44 1 CAN Amoxicillin/ Clavulanate Potassium (Amoxicillin/ Clavulanate 600MG/ 42.9MG 5 Ml NALLELY) 600 mg BIDM PO 05/06/17 07:30 05/13/17 07:29 05/09/17 07:57 600 MG Diltiazem HCl (Cardizem Cd Cap) 120 mg QAM PO 05/08/17 09:00 06/07/17 08:59 05/09/17 08:53 120 MG Tramadol HCl (Ultram Tab) 25 mg Q6H PRN PO 05/08/17 20:15 06/07/17 20:14 05/08/17 23:44 25 MG Physical Exam Date Time Temp Pulse Resp B/P (MAP) Pulse Ox O2 Delivery O2 Flow Rate FiO2 05/09/17 13:46 75 124/77 (93) 94 Room Air 82 126/69 (88) 75 124/77 (93) 05/09/17 12:00 Room Air 05/09/17 11:55 37.2 95 20 164/84 (110) 95 Room Air 05/09/17 08:00 Room Air 05/09/17 07:27 37.1 87 22 140/63 (88) 91 Room Air 05/09/17 04:00 Room Air 05/09/17 03:30 36.9 80 18 133/65 (87) 93 Room Air 05/09/17 02:09 78 16 93 Room Air 05/08/17 23:59 Room Air 05/08/17 23:30 36.9 89 18 134/71 (92) 95 Room Air 05/08/17 20:30 Room Air 05/08/17 19:51 36.9 85 20 109/76 (87) 90 Room Air 05/08/17 18:58 73 20 94 Room Air 05/08/17 16:05 Room Air 05/08/17 15:51 36.8 72 18 130/79 (96) 95 Room Air 05/08/17 15:17 77 148/72 (97) 118/65 (82) 136/87 (103) On exam patient in the chair at the bedside. A collar is in place. Exhibits reasonable strength testing of bilateral upper extremities. He is otherwise wheelchair-bound. He has been markedly deconditioned over the past several months. He has marked limited range of motion of the cervical spine. There is no abnormal skin markings or evidence of skin breakdown along the cervical spine. Laboratory Results Last 24 Hours Test 05/08/17 16:26 05/08/17 20:25 05/09/17 06:21 05/09/17 06:55 Bedside Glucose 141 mg/dl 179 mg/dl 126 mg/dl Sodium Level 134 mmol/L Potassium Level 4.8 mmol/L Chloride Level 102 mmol/L Carbon Dioxide Level 27 mmol/L Anion Gap 5.0 mmol/L Blood Urea Nitrogen 10 mg/dl Creatinine 0.79 mg/dl Est Creatinine Clear Calc Drug Dose 49.4 ml/min Estimated GFR () 92.9 Estimated GFR (Non- 80.2 BUN/Creatinine Ratio 12.9 Random Glucose 102 mg/dl Calcium Level 8.3 mg/dl Vitamin B12 Level 847 pg/mL Folate 5.62 ng/mL Test 05/09/17 10:48 Bedside Glucose 187 mg/dl Assessment & Plan Assessment type II odontoid fracture displaced. Plan at this time I reviewed his most recent CAT scan compared to his March films. He Mr. is no evidence of significant healing but does not demonstrate any worsening of his odontoid alignment. At this point I recommend continued immobilization with a rigid collar. He certainly may remove this for basic hygiene purposes.
[2017-05-09] MEDS ORDERED: IBUPROFEN 200 MG TAB PO ONE (14:45)
--- NOTE | 2017-05-09 17:29 | Gastrointestinal Consultation ---
Gastrointestinal Consultation Date of Consultation: May 09, 2017 Attending Physician: Dr. Rivas Consulting Physician: Dr. Senior Reason for Consultation: Dysphagia History of Present Illness Patient is a 86 year old male patient of Dr. Cullen with a hx of Aortic valve stenosis, A-fib, CKD, CAD S/P distant bypass graft, DM-2, BPH who is a resident at [facility]. He was brought to [facility] when he experienced a brief LOC. Also, he was hospitalized at [place] in March for a fall from bed from which he sustained a cervical spine fracture (type II odontoid fracture) for which he is in a cervical collar. Recent imaging of this area, according to ortho does not show evidence of healing GI is consulted for odynophagia progressive dysphagia to solids and liquids. On 05/01/17, he underwent CTA with evidence of aspiration pneumonia. On our interview today, the patient told us that he is able to swallow liquids but has difficulty with foods with texture. He did not mention pain on swallowing. We asked him if he would be interested in obtaining a PEG tube. He indicated that he would consider. The pt underwent speech therapy eval in [place] on 04/13/17 with the following recommendations: 1) PO diet of pureed solids with nectar thick liquids 2) Meds crushed 3) Total assistance- ensure slow rate of intake, small bites/sips 4) HOB upright to 90 degrees. If pt OOB in chair, please ensure feet are touching the ground. Aspiration precautions maintained. If s/sx present, downgrade diet as deemed appropriate and re-consult speech. Past Medical/Surgical History Medical Problems: (1) Dens fracture Status: Acute (2) Syncope Status: Acute Past Medical History: 1. Anemia 2. Anxiety 3. Aortic Valve Stenosis 4. A-fib 5. Carotid artery occlusion 6. CKD 7. CAD, S/P CABG x 3 8. DM-2 9. HTN 10. Peripheral vascular disease Past Surgical History: 1. CABG x 3 2. Lumbar spine surgery 3. Tonsillecotmy and adenoidectomy 4. Aortic Valve replacement 5. Appendectomy 6. Cardiac Catheterization Family History FH: colon cancer Social History Smoking Status: Former Smoker (Pt reports quit 1 month ago, was smoking 0.25ppd x 65 years) Alcohol Use: none Drug Use: none Marital Status: Housing Status: lives with significant other Occupation Status: retired Allergies Coded Allergies: Nortriptyline (Verified Allergy, Severe, CHEST PAIN-"BURNING FROM MID CHEST TO THROAT"., 05/01/17) Current Medications Home Meds and Scripts Medications Dose Route/Sig Max Daily Dose Days Date Category Dose Instructions Cardizem (Diltiazem Hcl) 60 Mg Tab 1 Tab PO Q6H 05/01/17 Reported Nystatin Cream (Nystatin) 90 Appln/30 Gm Cr 0 EXT BID 05/01/17 Reported APPLY TO AFFECTED AREA- Penis BID Zofran (Ondansetron Hcl) 8 Mg Tab 8 Mg PO Q8 05/01/17 Reported Roxicodone Ir (Oxycodone HCl) 5 Mg Tab 1 Tab PO Q4H PRN 05/01/17 Reported Januvia (Sitagliptin Phosphate) 50 Mg Tab 1 Tab PO DAILY 30 05/01/17 Reported Lopressor (Metoprolol Tartrate) 25 Mg Tab 25 Mg PO BID 05/01/17 Reported Novolog (Insulin Aspart) 100 Units/Ml Inj 8 Units SQ TIDM 05/01/17 Reported Kp Melatonin (Melatonin) 3 Mg Tab 3 Mg PO HS 05/01/17 Reported Levaquin (Levofloxacin) 500 Mg Tab 500 Mg PO DAILY 05/01/17 Reported Lantus (Insulin Glargine) 100 Unit/Ml Inj 16 Units SC QPM 05/01/17 Reported Aleve (Naproxen) 220 Mg Tab 220 Mg PO BID W/FOOD PRN 04/02/17 Reported Aspirin Ec (Aspirin) 81 Mg Tab 81 Mg PO QAM 04/02/17 Reported Stool Softener (Docusate Sodium) 100 Mg Cap 100 Mg PO BID 04/02/17 Reported Vitron-C (Iron-Vitamin C) 1 Tab Tab 1 Tab PO BID 04/02/17 Reported DOSE 65-125MG. Imodium A-D (Loperamide Hcl) 2 Mg Tab 2 Mg PO DIRECTED PRN 04/02/17 Reported Ativan (Lorazepam) 1 Mg Tab 1 Mg PO TID PRN 04/02/17 Reported Cymbalta (Duloxetine HCl) 30 Mg Cap 30 Mg PO QAM 30 04/02/17 Reported Review of Systems Constitutional: + weakness Respiratory: + cough Cardiac: No chest pain Abdomen: + see HPI, + dysphagia, No pain, No nausea, No vomiting, No diarrhea, No GI bleeding Male : No dysuria Neuro: No memory loss Psych: No depression symptoms Heme: No abnormal bleeding/bruising Endo: + fatigue Skin: No rash, No color change, No jaundice Physical Exam Date Time Temp Pulse Resp B/P (MAP) Pulse Ox O2 Delivery O2 Flow Rate FiO2 05/09/17 16:00 Room Air 05/09/17 15:57 36.5 79 20 133/72 (92) 92 Room Air 05/09/17 15:39 77 16 93 Room Air 05/09/17 13:46 75 124/77 (93) 94 Room Air 82 126/69 (88) 75 124/77 (93) 05/09/17 12:00 Room Air 05/09/17 11:55 37.2 95 20 164/84 (110) 95 Room Air 05/09/17 08:00 Room Air 05/09/17 07:27 37.1 87 22 140/63 (88) 91 Room Air 05/09/17 07:11 75 16 93 Room Air 05/09/17 04:00 Room Air 05/09/17 03:30 36.9 80 18 133/65 (87) 93 Room Air 05/09/17 02:09 78 16 93 Room Air 05/08/17 23:59 Room Air 05/08/17 23:30 36.9 89 18 134/71 (92) 95 Room Air 05/08/17 20:30 Room Air 05/08/17 19:51 36.9 85 20 109/76 (87) 90 Room Air 05/08/17 18:58 73 20 94 Room Air General Appearance: no apparent distress, + thin, + pertinent finding (frail appearing) Eyes: normal inspection, EOMI Neck: + pertinent finding (in a stiff cervical collar) Respiratory/Chest: chest non-tender, normal breath sounds, no accessory muscle use, + decreased breath sounds (left base), + crackles (at bases) Cardiovascular: regular rate, rhythm, no JVD, + systolic murmur (2-3/6) Abdomen: normal bowel sounds, non tender, soft, no organomegaly Extremities: normal inspection, no pedal edema, normal capillary refill Neurologic/Psych: alert, normal mood/affect, oriented x 3 Skin: normal color, no jaundice, warm/dry, no rash Laboratory Results Last 24 Hours Test 05/08/17 20:25 05/09/17 06:21 05/09/17 06:55 05/09/17 10:48 Bedside Glucose 179 mg/dl 126 mg/dl 187 mg/dl Sodium Level 134 mmol/L Potassium Level 4.8 mmol/L Chloride Level 102 mmol/L Carbon Dioxide Level 27 mmol/L Anion Gap 5.0 mmol/L Blood Urea Nitrogen 10 mg/dl Creatinine 0.79 mg/dl Est Creatinine Clear Calc Drug Dose 49.4 ml/min Estimated GFR () 92.9 Estimated GFR (Non- 80.2 BUN/Creatinine Ratio 12.9 Random Glucose 102 mg/dl Calcium Level 8.3 mg/dl Vitamin B12 Level 847 pg/mL Folate 5.62 ng/mL Test 05/09/17 16:03 Bedside Glucose 153 mg/dl Impression Patient is a 86 year old male patient with oropharyngeal dysphagia. Plan Plan: 1. No role for endoscopy at this time. Case was discussed with anesthesia who recommend against sedation here at [facility] in light of his unstable cervical fracture. 2. Though pt did not mention pain with swallowing during our interview, if concern for candidiasis, could empirically treat with Diflucan. 3. Follow/exhaust speech therapy recommendations and all modifications that could be done at the bedside to improve posture, avoid aspiration. 4. If PEG is required, would need to be done by interventional radiology at [place]. 5. Unfortunately, we have little to offer this patient. Will sign off. Please notify us if further questions or new GI issues. I have seen, examined, and agree with the plan as outlined above by Ms. Nneka Lopez Unfortunate situation with C2 fracture and now with oropharyngeal dysphagia. He appears to have transfer difficulties and may be aspirating. Certainly, it seems worsened by the Morris J collar. I am uncertain what we have to offer, EGD likely has little role as this does not seem to be a stenosis/stricture problem. PEG could be discussed, but when talked with patient he was unsure. Nurse reports does very well with liquids and semithick liquids, so not sure PEG would be indicted, does not eliminate aspiration. PEG would be difficult given fracture, I discussed with anesthesia and they stated they would be reluctant or refuse sedation unless emergency given risk of intubation. If needs to be done, PEG via IR seems like a reasonable option given lack of sedation and only necessitates NGT placement. Would exhaust all food and or positioning modifications with speech recommendations. Please call with any questions or concerns or further discussions.
--- NOTE | 2017-05-09 23:46 | Progress Note ---
Medicine Progress Note Date & Time of Visit: May 09, 2017 at 23:36. Subjective 86-year-old man presented with nausea and vomiting resulting in hypoxia while at [facility]. Reported to have a syncopal episode while sitting on bed however, patient was tired from PT. When we discussed if he has had further syncopal episodes he responded that yes he had describing that he fell asleep this morning. Patient has baseline dementia and history is questionable. He reports a headache that is persisted despite Tylenol. He reports continued cough but feels better overall. He was able to tolerate breakfast but then reported significant pain and choking with liquids and solids. Recent video swallow study at [place] was normal. Currently on mechanical soft diet but having trouble with it. Nurse recommended pured diet at this point. Objective Last 8 Hrs Date Time Temp Pulse Resp B/P (MAP) Pulse Ox O2 Delivery O2 Flow Rate FiO2 05/09/17 22:51 37.0 76 16 146/71 (96) 95 Room Air 05/09/17 20:00 Room Air 05/09/17 19:31 74 16 94 Room Air 05/09/17 19:20 36.4 73 20 147/73 (97) 94 Room Air 05/09/17 16:00 Room Air 05/09/17 15:57 36.5 79 20 133/72 (92) 92 Room Air 05/09/17 15:39 77 16 93 Room Air Physical Exam: GEN: thin, frail, elderly, in no acute distress, alert and disoriented to time. Appears to be irritated by hard collar in place HEENT: NC/AT, PERRL, normal sclerae CARDIO: reg rate, S1/2 heard without m/g/r LUNGS: CTA bilaterally, no crackles, rales or wheezes, good diaphragmatic excursion ABD: soft, non-tender, non-distended, no rebound or guarding EXTREMITY: RP and DP palpable 2+ bilat, no LE swelling or edema, extremities are warm and well-perfused NEURO: CN 2-12 grossly intact, sensation intact throughout, no gross focal deficits. MUSC: 5/5 strength throughout, no gross focal deficits SKIN: warm and dry Laboratory Results: 05/07/17 05:19 05/09/17 06:21 Test 05/01/17 09:32 05/01/17 15:00 05/02/17 02:00 05/02/17 06:39 Immature Granulocyte % (Auto) 0.2 % White Blood Count 8.01 K/uL (4.8-10.8) Red Blood Count 4.07 M/uL (4.7-6.1) Hemoglobin 12.6 g/dL (14.0-18.0) Hematocrit 37.9 % (42-52) Mean Corpuscular Volume 93.1 fL (80-100) Mean Corpuscular Hemoglobin 31.0 pg (25-34) Mean Corpuscular Hemoglobin Concent 33.2 g/dl (32-36) Platelet Count 187 K/uL (130-400) Mean Platelet Volume 10.2 fL (7.4-10.4) Neutrophils (%) (Auto) 83.3 % Lymphocytes (%) (Auto) 9.6 % Monocytes (%) (Auto) 6.9 % Eosinophils (%) (Auto) 0.0 % Basophils (%) (Auto) 0.0 % Neutrophils # (Auto) 6.67 K/uL (1.4-6.5) Lymphocytes # (Auto) 0.77 K/uL (1.2-3.4) Monocytes # (Auto) 0.55 K/uL (0.11-0.59) Eosinophils # (Auto) 0.00 K/uL (0-0.5) Basophils # (Auto) 0.00 K/uL (0-0.2) Immature Granulocyte # (Auto) 0.02 K/uL (0.00-0.02) Prothrombin Time 11.4 SECONDS (9.0-12.0) Prothromb Time International Ratio 1.1 (0.9-1.1) Activated Partial Thromboplast Time 25.9 SECONDS (21.0-31.0) Partial Thromboplastin Ratio 1.0 Magnesium Level 2.0 mg/dl (1.8-2.4) Total Bilirubin 0.5 mg/dl (0.2-1) Direct Bilirubin 0.3 mg/dl (0-0.2) Aspartate Amino Transf (AST/SGOT) 10 U/L (15-37) Alanine Aminotransferase (ALT/SGPT) 12 U/L (12-78) Alkaline Phosphatase 93 U/L (45-117) Total Protein 7.8 gm/dl (6.4-8.2) Albumin 2.6 gm/dl (3.4-5.0) Thyroid Stimulating Hormone (TSH) 0.167 uIu/ml (0.300-4.500) Free Thyroxine 1.60 ng/dl (0.80-1.60) Influenza Type A (RT-PCR) Neg for Influ A (NEG) Influenza Type B (RT-PCR) Neg for Influ B (NEG) Urine Color YELLOW Urine Appearance CLOUDY (CLEAR) Urine pH 5.0 (4.5-7.5) Urine Specific [place] 1.040 (1.000-1.030) Urine Protein TRACE (NEG) Urine Glucose (UA) NEG (NEG) Urine Ketones NEG (NEG) Urine Occult Blood NEG (NEG) Urine Nitrite NEG (NEG) Urine Bilirubin NEG (NEG) Urine Urobilinogen NEG (NEG) Urine Leukocyte Esterase NEG (NEG) Urine WBC (Auto) 1-5 /hpf (0-5) Urine RBC (Auto) 0-4 /hpf (0-4) Urine Hyaline Casts (Auto) 0 /lpf (0-5) Urine Epithelial Cells (Auto) >30 /lpf (0-5) Urine Bacteria (Auto) 1+ (NEG) Urine Renal Epithelial Cells /lpf (0-5) Urine Crystals URIC ACID (NONE PRSENT) Urine Pathogenic Casts /lpf (0) Urine Yeast (Auto) (NONE PRSENT) Troponin I 0.052 ng/ml (0-0.045) Test 05/07/17 05:19 05/09/17 06:21 05/09/17 21:02 Red Blood Count 3.67 M/uL (4.7-6.1) Mean Corpuscular Volume 89.9 fL (80-100) Mean Corpuscular Hemoglobin 29.2 pg (25-34) Mean Corpuscular Hemoglobin Concent 32.4 g/dl (32-36) RDW Standard Deviation 46.1 fL (36.4-46.3) RDW Coefficient of Variation 14.0 % (11.5-14.5) Mean Platelet Volume 9.7 fL (7.4-10.4) Anion Gap 5.0 mmol/L (3-11) Est Creatinine Clear Calc Drug Dose 49.4 ml/min Estimated GFR () 92.9 Estimated GFR (Non- 80.2 BUN/Creatinine Ratio 12.9 (10-20) Calcium Level 8.3 mg/dl (8.5-10.1) Vitamin B12 Level 847 pg/mL (211-911) Folate 5.62 ng/mL (>5.38) Bedside Glucose 137 mg/dl (70-99) Date/Time Source Procedure Growth Status 05/01/17 15:34 Blood Blood Culture - Final NO GROWTH Complete 05/01/17 18:50 Nasal MRSA DNA Surveillance Screen - Final Specimen Negative for MRSA by DNA Probe Complete 05/01/17 22:25 Sputum Expectorated Sputum Gram Stain - Final Complete 05/01/17 22:25 Sputum Expectorated Sputum Sputum Culture - Final MODERATE NORMAL MARTIN. Complete 05/01/17 11:10 Urine,Catheterized Urine Culture - Final NO GROWTH - LESS THAN 1,000 COLONIES/ML Complete Last 24 Hours Test 05/09/17 06:21 05/09/17 06:55 05/09/17 10:48 05/09/17 16:03 Sodium Level 134 mmol/L Potassium Level 4.8 mmol/L Chloride Level 102 mmol/L Carbon Dioxide Level 27 mmol/L Anion Gap 5.0 mmol/L Blood Urea Nitrogen 10 mg/dl Creatinine 0.79 mg/dl Est Creatinine Clear Calc Drug Dose 49.4 ml/min Estimated GFR () 92.9 Estimated GFR (Non- 80.2 BUN/Creatinine Ratio 12.9 Random Glucose 102 mg/dl Calcium Level 8.3 mg/dl Vitamin B12 Level 847 pg/mL Folate 5.62 ng/mL Bedside Glucose 126 mg/dl 187 mg/dl 153 mg/dl Test 05/09/17 21:02 Bedside Glucose 137 mg/dl Assessment & Plan 86-year-old man presented with nausea and vomiting resulting in hypoxia while at [facility]. Reported to have a syncopal episode while sitting on bed however, patient was tired from PT. When we discussed if he has had further syncopal episodes he responded that yes he had describing that he fell asleep this morning. Patient has baseline dementia and history is questionable. He reports a headache that is persisted despite Tylenol. He reports continued cough but feels better overall. He was able to tolerate breakfast but then reported significant pain and choking with liquids and solids. Recent video swallow study at [place] was normal. Currently on mechanical soft diet but having trouble with it. Nurse recommended pured diet at this point. 1. Pneumonia possibly secondary to aspiration-improved continue Augmentin. Oxygenating well on room air 2. Progressive dysphagia with abdominal odynophagia-consult GI for recommendations which are likely limited given unstable neck fracture. 3. Syncope-likely multifactorial in setting of weakness and possible autonomic neuropathy. Workup today has been unremarkable. The patient is not currently orthostatic. 4. Coronary artery disease status post CABG-stable, continue medical management with aspirin 81, Lopressor 25 twice daily. 5. Atrial fibrillation-rate controlled with diltiazem. Warfarin was discontinued due to fall risk. 6. Diabetes mellitus type 2-A1c 7.3 in April 2017. Insulin sliding scale with carb coverage, currently controlled. 7. C2 fracture status post fall-evaluated at [facility] in [place]. Nonsurgical management with hard cervical collar recommended. With recent headache orthospine was consulted. Recommend no change in management at this time. Follow-up CT showed no change in unstable fracture with 4 mm posterior displacement. 8. Dementia-appears to be mentating at baseline. No evidence of delirium. VTE PROPHYLAXIS-heparin Full code Disposition-expected to return to [facility] within the next 1-2 days Bess Rivas DO [facility] hospitalist Consultants: [facility] Ferrari Current Inpatient Medications: Current Inpatient Medications Medications (Trade) Dose Ordered Sig/Rc Route Start Time Stop Time Status Last Admin Dose Admin Heparin Sodium (Porcine) (Heparin Sq 5000 Unit/0.5ml) 5,000 unit Q12 SQ 05/01/17 21:00 05/31/17 20:59 05/09/17 20:56 5,000 UNIT Acetaminophen (Tylenol Tab) 650 mg Q4H PRN PO 05/01/17 13:00 05/31/17 12:59 05/09/17 12:26 650 MG Magnesium Hydroxide (Milk Of Magnesia Susp) 30 ml Q12H PRN PO 05/01/17 13:00 05/31/17 12:59 05/03/17 11:57 30 ML Ondansetron HCl (Zofran Inj) 4 mg Q6H PRN IV 05/01/17 13:00 05/31/17 12:59 05/02/17 08:29 4 MG Nitroglycerin (Nitrostat Tab) 0.4 mg UD PRN SL 05/01/17 13:00 05/31/17 12:59 Aspirin (Ecotrin Tab) 81 mg QAM PO 05/02/17 09:00 06/01/17 08:59 05/09/17 08:54 81 MG Docusate Sodium (coLACE CAP) 100 mg BID PO 05/01/17 21:00 05/31/17 20:59 05/09/17 08:53 100 MG Duloxetine HCl (Cymbalta Cap) 30 mg QAM PO 05/02/17 09:00 06/01/17 08:59 05/09/17 08:53 30 MG Metoprolol Tartrate (Lopressor Tab) 25 mg BID PO 05/01/17 21:00 05/31/17 20:59 05/09/17 20:52 25 MG Nystatin (Mycostatin Crm) 1 appln BID EXT 05/01/17 21:00 05/31/17 20:59 05/09/17 20:50 1 APPLN Levalbuterol (Xopenex 0.63 Mg/ 3 Ml Neb) 0.63 mg Q4H PRN INH 05/01/17 13:45 05/31/17 13:44 Levalbuterol (Xopenex 1.25MG/ 0.5ML Neb) 1.25 mg Q6R INH 05/01/17 15:00 05/31/17 14:59 05/09/17 19:31 1.25 MG Insulin Aspart (novoLOG ASPART) SLIDING SCALE If C... ACHS SC 05/01/17 16:00 05/31/17 15:59 05/09/17 11:55 1 UNITS Glucose (Glucose 40% Gel) 15-30 GRAMS 15 GRAMS... UD PRN PO 05/01/17 14:00 05/31/17 13:59 Glucose (Glucose Chew Tab) 4-8 Tablets 4 Tabl... UD PRN PO 05/01/17 14:00 05/31/17 13:59 Dextrose (Dextrose 50% 50ML Syringe) 25-50ML OF 50% DW IV FOR... UD PRN IV 05/01/17 14:00 05/31/17 13:59 Glucagon (Glucagon Inj) 1 mg UD PRN SQ 05/01/17 14:00 05/31/17 13:59 Enteral Nutritional Formula (Boost Glucose Control) 1 can BIDM PO 05/04/17 07:30 06/03/17 07:29 05/09/17 07:44 1 CAN Amoxicillin/ Clavulanate Potassium (Amoxicillin/ Clavulanate 600MG/ 42.9MG 5 Ml NALLELY) 600 mg BIDM PO 05/06/17 07:30 05/13/17 07:29 05/09/17 17:04 600 MG Diltiazem HCl (Cardizem Cd Cap) 120 mg QAM PO 05/08/17 09:00 06/07/17 08:59 05/09/17 08:53 120 MG Tramadol HCl (Ultram Tab) 25 mg Q6H PRN PO 05/08/17 20:15 06/07/17 20:14 05/08/17 23:44 25 MG
[2017-05-10] VITALS (10 sets, daily range): BP systolic 117–147; BP diastolic 61–85; PULSE 65–91; TEMP 36.8–37; O2SAT 91–97
[2017-05-10] MEDS: LEVALBUTEROL 1.25MG/0.5ML NEB INH SCH ×4 (01:48→19:29)
[2017-05-10 06:55] LABS: MEAN CELL VOLUME 89.6 fL (80-100); MEAN CORPUSCULAR HEMOGLOBIN 29.9 pg (25-34); MEAN CORPUSCULAR HGB CONC 33.3 g/dl (32-36); PLATELET COUNT 439 K/uL (130-400); RED CELL DISTRIBUTION WIDTH CV 14.4 % (11.5-14.5); RED CELL DISTRIBUTION WIDTH SD 47.8 fL (36.4-46.3); WHITE BLOOD COUNT 9.15 K/uL (4.8-10.8)
[2017-05-10] MEDS: INSULIN ASPART 100 UNITS/ML 3 ML PEN SC SCH ×4 (07:00→20:55)
[2017-05-10] MEDS: AMOXICILLIN/CLAVULANATE POTAS 600 MG/5 ML UDP PO SCH ×2 (07:32→16:45)
[2017-05-10] MEDS: BOOST GLUCOSE CONTROL PO SCH ×2 (07:32→16:45)
[2017-05-10] MEDS: NYSTATIN CR 15 GM TUBE EXT SCH ×2 (07:32→20:49)
[2017-05-10] MEDS: DULOXETINE (CYMBALTA) 30 MG CAP PO SCH (07:33)
[2017-05-10] MEDS: ASPIRIN 81 MG ECTAB PO SCH (07:33)
[2017-05-10] MEDS: METOPROLOL TARTRATE 25 MG TAB PO SCH ×2 (07:33→20:50)
[2017-05-10] MEDS: DOCUSATE SODIUM 100 MG CAP PO SCH ×2 (07:33→20:50)
[2017-05-10] MEDS: DILTIAZEM HCL 120 MG CAPCR PO SCH (07:33)
[2017-05-10] MEDS: HEPARIN SOD 5000 UNIT/0.5 ML CARP SQ SCH ×2 (07:39→20:53)
[2017-05-10] MEDS ORDERED: NUTR-7 PO (14:35)
[2017-05-10] MEDS ORDERED: DILT-202 PO (14:35)
[2017-05-10] MEDS ORDERED: AMOX600S PO (14:47)
--- NOTE | 2017-05-10 14:56 | Discharge Summary ---
Discharge Summary Date of Service May 10, 2017. Discharge Summary Admission Date: May 01, 2017 at 13:00 Discharge Date: May 10, 2017 Consultations: Ortho Spine-Osmar Guerrero GI-Nadeen Medication Reconciliation New Medications: Amoxicillin & Pot Clavulanate (Amoxicillin/Clavulanate P) 1 Radha Radha 600 MG PO BIDM for 3 Days, #50 ML Diltiazem HCl (Diltiazem Cd) 120 Mg Capcr 120 MG PO QAM for 30 Days, #30 CAP Ergocalciferol (Vitamin D 63892 Unit) 50,000 Unit Cap 66226 INTERUNIT PO Q7D@1200 for 90 Days, #12 CAP Ferrous Sulfate (Ferrous Sulfate) 325 Mg Tab 325 MG PO BIDM for 30 Days, #60 TAB Nutritional Supplements (Boost) 1 Liq Liq 1 CAN PO BIDM for 30 Days, #60 CAN Continued Medications: Aspirin (Aspirin Ec) 81 Mg Tab 81 MG PO QAM Docusate Sodium (Stool Softener) 100 Mg Cap 100 MG PO BID Duloxetine HCl (Cymbalta) 30 Mg Cap 30 MG PO QAM for 30 Days, #30 CAP 2 Refills Insulin Aspart (Novolog) 100 Units/Ml Inj 8 UNITS SQ TIDM Insulin Glargine (Lantus) 100 Unit/Ml Inj 16 UNITS SC QPM, VIAL Iron-Vitamin C (Vitron-C) 1 Tab Tab 1 TAB PO BID DOSE 65-125MG. Loperamide Hcl (Imodium A-D) 2 Mg Tab 2 MG PO DIRECTED PRN for Diarrhea Lorazepam (Ativan) 1 Mg Tab 1 MG PO TID PRN for Anxiety/Agitation, TAB Melatonin (Kp Melatonin) 3 Mg Tab 3 MG PO HS Metoprolol Tartrate (Lopressor) 25 Mg Tab 25 MG PO BID, TAB Naproxen (Aleve) 220 Mg Tab 220 MG PO BID w/food PRN for Moderate Pain, TAB Nystatin (Nystatin Cream) 90 Appln/30 Gm Cr 0 EXT BID, #15 GM APPLY TO AFFECTED AREA- Penis BID Ondansetron Hcl (Zofran) 8 Mg Tab 8 MG PO Q8 for Nausea or Vomiting, TAB Sitagliptin Phosphate (Januvia) 50 Mg Tab 1 TAB PO DAILY for 30 Days, #30 TAB 5 Refills Discontinued Medications: Diltiazem Hcl (Cardizem) 60 Mg Tab 1 TAB PO Q6H, TAB Levofloxacin (Levaquin) 500 Mg Tab 500 MG PO DAILY, TAB Oxycodone Ir (Roxicodone Ir) 5 Mg Tab 1 TAB PO Q4H PRN for Pain, #12 TAB Admission Information HPI (per Admitting provider): Pt is 86 y/o M with PMH A-fib, DM II, CAD s/p CABG, S/S/P aortic valve replacement, PVD, anxiety, dyslipidemia, HTN, BPH resented to ER from [facility] with complaint syncope, cough. It is reported that patient was having physical therapy this morning and he was sitting on edge of bed when he was unresponsive for approximately 5 seconds. When asked patient if he remembers events this morning or if he had any syncopal episodes, he reports that he was tired of doing physical therapy. Pt denies vision changes, paresthesias, extremity weakness, speech changes. 04/02/17 Pt sent from [facility] to [facility] after fall out of bed and type II odontoid fracture. It was treated conservatively with Reeves J collar. In hospital patient developed pneumonia MSSA and Enterobacter cloacae, treated with vancomycin patient was discharged on Bactrim. Reported the patient also developed delirium. He started on Risperdal. Pt was taken off his coumadin for a -fib by cardiology. 04/13/17 patient discharged to [facility]. Risperdal has since been discontinued. Patient recently had his metformin discontinued and yesterday was started on NovoLog 8 units 3 times daily. Patient is on pureed diet, [place] thick since d/c from [facility], had videofluro during admission showed was not aspirating at that time. It is reported a couple of days ago pt was drinking Mountain Dew that was not thickened. Pt doesn't feel he needs thickened liquids , however he does admit that he sometimes chokes. Pt reports nausea and intermittent vomiting. He has been given Zofran at without much relief. He reports for past month has not been eating and drinking much and reports weight loss, unsure the amount. Reports generalized weakness for past month. Pt with cough productive yellow sputum x 1 week. Reported fever 102F on 04/27/17 at and had reported negative CXR at that time and was started on albuterol nebs. Past 2 days with increased cough and reported lower O2 sats. Family reports thinks increased cough after pt drank mountain dew. Patient reports intermittent frontal headache since his C-spine fracture. Denies any worsening. Using oxycodone prn pain to neck. Pt did not receive his metoprolol this morning, did receive diltiazem. Denies diaphoresis, hematemesis, hematochezia, melena, constipation, diarrhea, dizziness, syncope, vision changes, CP, SOB, orthopnea, palpitations, hemoptysis , sore throat, otalgia, rhinorrhea, abdominal pain, paresthesias, extremity edema, rashes, urinary symptoms. Physical Exam (per Admitting): General Appearance: + thin, + pertinent finding (chronic ill appearing) Head: normocephalic, atraumatic Eyes: normal inspection, PERRL, EOMI, sclerae normal ENT: hearing grossly normal, pharynx normal, + pertinent finding (muocus membranes dry) Neck: trachea midline, + pertinent finding (C-collar in place) Respiratory/Chest: chest non-tender, no respiratory distress, no accessory muscle use, + rhonchi (scattered throughout) Cardiovascular: no murmur, normal peripheral pulses, + irregularly irregular Abdomen/GI: normal bowel sounds, non tender, soft Extremities/Musculoskelatal: no calf tenderness, normal capillary refill, no pedal edema, non-tender, + pertinent finding (pedal pushes, pulls intact, flexion and extension of knees) Neurologic/Psych: alert, normal mood/affect, oriented x 3 Skin: warm/dry, + pertinent finding (sacrum with erythema, glans of penis with erythema, no urethral discharge noted) Hospital Course 86-year-old man presented with nausea and vomiting resulting in hypoxia while at [facility]. Reported to have a syncopal episode while sitting on bed however, patient was tired from PT. When we discussed if he has had further syncopal episodes he responded that yes he had describing that he fell asleep this morning. Patient has baseline dementia and history is questionable. He reports a headache that is persisted despite Tylenol. He reports continued cough but feels better overall. He was able to tolerate breakfast but then reported significant pain and choking with liquids and solids. Recent video swallow study at [place] was normal. Currently on mechanical soft diet but having trouble with it. Nurse recommended pured diet at this point. 1. Pneumonia possibly secondary to aspiration-improved continue Augmentin. Oxygenating well on room air 2. Progressive dysphagia with abdominal odynophagia-consult GI for recommendations which are likely limited given unstable neck fracture. 3. Syncope-likely multifactorial in setting of weakness and possible autonomic neuropathy. Workup today has been unremarkable. The patient is not currently orthostatic. 4. Coronary artery disease status post CABG-stable, continue medical management with aspirin 81, Lopressor 25 twice daily. 5. Atrial fibrillation-rate controlled with diltiazem. Warfarin was discontinued due to fall risk. 6. Diabetes mellitus type 2-A1c 7.3 in April 2017. Insulin sliding scale with carb coverage, currently controlled. 7. C2 fracture status post fall-evaluated at [facility] in [place]. Nonsurgical management with hard cervical collar recommended. With recent headache orthospine was consulted. Recommend no change in management at this time. Follow-up CT showed no change in unstable fracture with 4 mm posterior displacement. 8. Dementia-appears to be mentating at baseline. No evidence of delirium. VTE PROPHYLAXIS-heparin Full code Disposition-expected to return to [facility] within the next 1-2 days Bess Rivas DO [facility] hospitalist Total time spent on discharge = This includes examination of the patient, discharge planning, medication reconciliation, and communication with other providers. [place] [address] Discharge Medical Patient Name: Víctor Granger Unit Number: [id number] Date of : 1930 Patient Status: Admitted Inpatient Attending Doctor: Bess Rivas DO DI: Medical v5 Discharge Instructions Date of Service May 10, 2017. Admission Reason for Admission: Aspiration Pneumonia, Atrial Fibrillation Discharge Discharge Diagnosis / Problem: Aspiration pneumonia Discharge Goals Goal(s): Prevent Disease Progression Activity Recommendations Activity Limitations: per Instructions/Follow-up section . Instructions / Follow-Up Instructions / Follow-Up Please take all medications as instructed. Please continue antibiotics as prescribed for another 3 days. You will need a follow-up chest xray in 4-6 weeks to ensure resolution of your pneumonia. I strongly recommend a three-day calorie count, Boost nutritional supplements ( or Ensure) TID, daily weights and a Nutrition consult on [facility] back [facility] the [facility]. This is in reference to your weight loss and to help manage it. I also recommend discussing an appetite stimulant with your primary care provider. You will need a follow-up with your primary care provider within one week of discharge to follow-up from this hospitalization. Please follow-up with your Orthopedic Spine surgeon as instructed and keep hard collar in place at all times until instructed otherwise. It was a pleasure taking care of you! Call if you have any questions or problems. You can reach a [facility] hospitalist on duty at [facility] 24 hours a day by calling [phone]. Take care of yourself. [facility] Diet Patient's current hospital diet: Diabetes Type 2 Diet Discharge Diet Recommended Diet: Diabetes Type 2 Diet Procedures Procedures Performed: None. Pending Studies Studies pending at discharge: no Medical Emergencies . Who to Call and When: Medical Emergencies: If at any time you feel your situation is an emergency, please call 911 immediately. . Non-Emergent Contact Non-Emergency issues call your: Primary Care Provider . . "Provider Documentation" section prepared by Bess Rivas. .
--- NOTE | 2017-05-10 17:23 | Progress Note ---
Medicine Progress Note Date & Time of Visit: May 10, 2017 at 16:40. Subjective 86-year-old man presented with nausea and vomiting resulting in hypoxia [facility] Admitted for aspiration pneumonia. Patient was sleeping when I arrived and was alert but easily falling asleep during interview. Denies any complaints at this time except for some neck discomfort from his hard collar. States that he has had difficulties eating but could not go into specific sister states that he does not have an appetite. I discussed the case with the unit secretary following him. Recommendations will be made to sniff on discharge for calorie count continuation of nutritional supplements, daily weights and unit secretary consult. I also followed up with the son and explained the discharge plan. Objective Last 8 Hrs Date Time Temp Pulse Resp B/P (MAP) Pulse Ox O2 Delivery O2 Flow Rate FiO2 05/10/17 14:11 81 14 97 Room Air 05/10/17 12:14 36.8 81 18 147/85 (105) 94 Room Air 05/10/17 12:10 Room Air Physical Exam: GEN: thin, frail, elderly, in no acute distress, alert and disoriented to time. Irritated by hard collar in place HEENT: NC/AT, PERRL, normal sclerae CARDIO: reg rate, S1/2 heard without m/g/r LUNGS: CTA bilaterally, no crackles, rales or wheezes, good diaphragmatic excursion ABD: soft, non-tender, non-distended, no rebound or guarding EXTREMITY: RP and DP palpable 2+ bilat, no LE swelling or edema, extremities are warm and well-perfused NEURO: CN 2-12 grossly intact MUSC: Generalized weakness SKIN: warm and dry Laboratory Results: 05/10/17 06:07 05/09/17 06:21 Test 05/01/17 09:32 05/01/17 15:00 05/02/17 02:00 05/02/17 06:39 Immature Granulocyte % (Auto) 0.2 % White Blood Count 8.01 K/uL (4.8-10.8) Red Blood Count 4.07 M/uL (4.7-6.1) Hemoglobin 12.6 g/dL (14.0-18.0) Hematocrit 37.9 % (42-52) Mean Corpuscular Volume 93.1 fL (80-100) Mean Corpuscular Hemoglobin 31.0 pg (25-34) Mean Corpuscular Hemoglobin Concent 33.2 g/dl (32-36) Platelet Count 187 K/uL (130-400) Mean Platelet Volume 10.2 fL (7.4-10.4) Neutrophils (%) (Auto) 83.3 % Lymphocytes (%) (Auto) 9.6 % Monocytes (%) (Auto) 6.9 % Eosinophils (%) (Auto) 0.0 % Basophils (%) (Auto) 0.0 % Neutrophils # (Auto) 6.67 K/uL (1.4-6.5) Lymphocytes # (Auto) 0.77 K/uL (1.2-3.4) Monocytes # (Auto) 0.55 K/uL (0.11-0.59) Eosinophils # (Auto) 0.00 K/uL (0-0.5) Basophils # (Auto) 0.00 K/uL (0-0.2) Immature Granulocyte # (Auto) 0.02 K/uL (0.00-0.02) Prothrombin Time 11.4 SECONDS (9.0-12.0) Prothromb Time International Ratio 1.1 (0.9-1.1) Activated Partial Thromboplast Time 25.9 SECONDS (21.0-31.0) Partial Thromboplastin Ratio 1.0 Magnesium Level 2.0 mg/dl (1.8-2.4) Total Bilirubin 0.5 mg/dl (0.2-1) Direct Bilirubin 0.3 mg/dl (0-0.2) Aspartate Amino Transf (AST/SGOT) 10 U/L (15-37) Alanine Aminotransferase (ALT/SGPT) 12 U/L (12-78) Alkaline Phosphatase 93 U/L (45-117) Total Protein 7.8 gm/dl (6.4-8.2) Albumin 2.6 gm/dl (3.4-5.0) Thyroid Stimulating Hormone (TSH) 0.167 uIu/ml (0.300-4.500) Free Thyroxine 1.60 ng/dl (0.80-1.60) Influenza Type A (RT-PCR) Neg for Influ A (NEG) Influenza Type B (RT-PCR) Neg for Influ B (NEG) Urine Color YELLOW Urine Appearance CLOUDY (CLEAR) Urine pH 5.0 (4.5-7.5) Urine Specific [place] 1.040 (1.000-1.030) Urine Protein TRACE (NEG) Urine Glucose (UA) NEG (NEG) Urine Ketones NEG (NEG) Urine Occult Blood NEG (NEG) Urine Nitrite NEG (NEG) Urine Bilirubin NEG (NEG) Urine Urobilinogen NEG (NEG) Urine Leukocyte Esterase NEG (NEG) Urine WBC (Auto) 1-5 /hpf (0-5) Urine RBC (Auto) 0-4 /hpf (0-4) Urine Hyaline Casts (Auto) 0 /lpf (0-5) Urine Epithelial Cells (Auto) >30 /lpf (0-5) Urine Bacteria (Auto) 1+ (NEG) Urine Renal Epithelial Cells /lpf (0-5) Urine Crystals URIC ACID (NONE PRSENT) Urine Pathogenic Casts /lpf (0) Urine Yeast (Auto) (NONE PRSENT) Troponin I 0.052 ng/ml (0-0.045) Test 05/09/17 06:21 05/10/17 06:07 05/10/17 16:43 Anion Gap 5.0 mmol/L (3-11) Est Creatinine Clear Calc Drug Dose 49.4 ml/min Estimated GFR () 92.9 Estimated GFR (Non- 80.2 BUN/Creatinine Ratio 12.9 (10-20) Calcium Level 8.3 mg/dl (8.5-10.1) Vitamin B12 Level 847 pg/mL (211-911) Folate 5.62 ng/mL (>5.38) Red Blood Count 3.35 M/uL (4.7-6.1) Mean Corpuscular Volume 89.6 fL (80-100) Mean Corpuscular Hemoglobin 29.9 pg (25-34) Mean Corpuscular Hemoglobin Concent 33.3 g/dl (32-36) RDW Standard Deviation 47.8 fL (36.4-46.3) RDW Coefficient of Variation 14.4 % (11.5-14.5) Mean Platelet Volume 9.0 fL (7.4-10.4) Bedside Glucose 135 mg/dl (70-99) Date/Time Source Procedure Growth Status 05/01/17 15:34 Blood Blood Culture - Final NO GROWTH Complete 05/01/17 18:50 Nasal MRSA DNA Surveillance Screen - Final Specimen Negative for MRSA by DNA Probe Complete 05/01/17 22:25 Sputum Expectorated Sputum Gram Stain - Final Complete 05/01/17 22:25 Sputum Expectorated Sputum Sputum Culture - Final MODERATE NORMAL MARTIN. Complete 05/01/17 11:10 Urine,Catheterized Urine Culture - Final NO GROWTH - LESS THAN 1,000 COLONIES/ML Complete Last 24 Hours Test 05/09/17 21:02 05/10/17 06:07 05/10/17 06:48 05/10/17 10:47 Bedside Glucose 137 mg/dl 111 mg/dl 136 mg/dl White Blood Count 9.15 K/uL Red Blood Count 3.35 M/uL Hemoglobin 10.0 g/dL Hematocrit 30.0 % Mean Corpuscular Volume 89.6 fL Mean Corpuscular Hemoglobin 29.9 pg Mean Corpuscular Hemoglobin Concent 33.3 g/dl RDW Standard Deviation 47.8 fL RDW Coefficient of Variation 14.4 % Platelet Count 439 K/uL Mean Platelet Volume 9.0 fL Assessment & Plan 86-year-old man presented with nausea and vomiting resulting in hypoxia [facility]. Admitted for aspiration pneumonia. Patient was sleeping when I arrived and was alert but easily falling asleep during interview. Denies any complaints at this time except for some neck discomfort from his hard collar. States that he has had difficulties eating but could not go into specific sister states that he does not have an appetite. I discussed the case with the unit secretary following him. Recommendations will be made to sniff on discharge for calorie count continuation of nutritional supplements, daily weights and unit secretary consult. I also followed up with the son and explained the discharge plan. 1. Pneumonia possibly secondary to aspiration-improved continue Augmentin. Oxygenating well on room air 2. Progressive dysphagia with odynophagia-GI consulted but unable to offer much with unstable next neck fracture at this time. Continue supportive care. Of note patient had normal swallow study a few weeks ago. 3. Severe protein calorie malnutrition-patient was recently hospitalized and has had some weight loss likely as a result of this in addition to irritation and frustration from the hard collar which is in place to treat an unstable neck neck fracture. Continue nutrition recommendations as above on discharge to sniff with close PCP follow-up. 4. Syncope-likely multifactorial in setting of weakness and possible autonomic neuropathy. 5. Coronary artery disease status post CABG-stable, continue medical management with aspirin 81, Lopressor 25 twice daily. 6. Atrial fibrillation-rate controlled with diltiazem. Warfarin was discontinued due to fall risk. 7. Diabetes mellitus type 2-A1c 7.3 in April 2017. Insulin sliding scale with carb coverage, currently controlled. 8. C2 fracture status post fall-evaluated at [facility] in [place]. Nonsurgical management with hard cervical collar recommended. With recent headache; ortho spine was consulted. Recommend no change in management at this time. Follow-up CT showed no change in unstable fracture with 4 mm posterior displacement. 8. Dementia-appears to be mentating at baseline. No evidence of delirium. 9. Anemia-uncertain etiology, possibly secondary to phlebotomy with recent hospitalizations. No evidence of bleeding. Will order iron studies in a.m. and defer to outpatient PCP for continued workup. VTE PROPHYLAXIS-heparin Full code Disposition-[facility]. As noted above I spoken with the son and unit secretary, and updated family on expected recommendations when he returns [facility] regarding weight loss issues. The patient's son verbalized understanding with intent to comply Bess Rivas DO [facility] hospitalist Consultants: Ortho Spine-Osmar Ferrari Current Inpatient Medications: Current Inpatient Medications Medications (Trade) Dose Ordered Sig/Rc Route Start Time Stop Time Status Last Admin Dose Admin Heparin Sodium (Porcine) (Heparin Sq 5000 Unit/0.5ml) 5,000 unit Q12 SQ 05/01/17 21:00 05/31/17 20:59 05/10/17 07:39 5,000 UNIT Acetaminophen (Tylenol Tab) 650 mg Q4H PRN PO 05/01/17 13:00 05/31/17 12:59 05/09/17 12:26 650 MG Magnesium Hydroxide (Milk Of Magnesia Susp) 30 ml Q12H PRN PO 05/01/17 13:00 05/31/17 12:59 05/03/17 11:57 30 ML Ondansetron HCl (Zofran Inj) 4 mg Q6H PRN IV 05/01/17 13:00 05/31/17 12:59 05/02/17 08:29 4 MG Nitroglycerin (Nitrostat Tab) 0.4 mg UD PRN SL 05/01/17 13:00 05/31/17 12:59 Aspirin (Ecotrin Tab) 81 mg QAM PO 05/02/17 09:00 06/01/17 08:59 05/10/17 07:33 81 MG Docusate Sodium (coLACE CAP) 100 mg BID PO 05/01/17 21:00 05/31/17 20:59 05/10/17 07:33 100 MG Duloxetine HCl (Cymbalta Cap) 30 mg QAM PO 05/02/17 09:00 06/01/17 08:59 05/10/17 07:33 30 MG Metoprolol Tartrate (Lopressor Tab) 25 mg BID PO 05/01/17 21:00 05/31/17 20:59 05/10/17 07:33 25 MG Nystatin (Mycostatin Crm) 1 appln BID EXT 05/01/17 21:00 05/31/17 20:59 05/10/17 07:32 1 APPLN Levalbuterol (Xopenex 0.63 Mg/ 3 Ml Neb) 0.63 mg Q4H PRN INH 05/01/17 13:45 05/31/17 13:44 05/10/17 07:02 0.63 MG Levalbuterol (Xopenex 1.25MG/ 0.5ML Neb) 1.25 mg Q6R INH 05/01/17 15:00 05/31/17 14:59 05/10/17 14:10 1.25 MG Insulin Aspart (novoLOG ASPART) SLIDING SCALE If C... ACHS SC 05/01/17 16:00 05/31/17 15:59 05/10/17 12:20 1 UNITS Glucose (Glucose 40% Gel) 15-30 GRAMS 15 GRAMS... UD PRN PO 05/01/17 14:00 05/31/17 13:59 Glucose (Glucose Chew Tab) 4-8 Tablets 4 Tabl... UD PRN PO 05/01/17 14:00 05/31/17 13:59 Dextrose (Dextrose 50% 50ML Syringe) 25-50ML OF 50% DW IV FOR... UD PRN IV 05/01/17 14:00 05/31/17 13:59 Glucagon (Glucagon Inj) 1 mg UD PRN SQ 05/01/17 14:00 05/31/17 13:59 Enteral Nutritional Formula (Boost Glucose Control) 1 can BIDM PO 05/04/17 07:30 06/03/17 07:29 05/10/17 07:32 1 CAN Amoxicillin/ Clavulanate Potassium (Amoxicillin/ Clavulanate 600MG/ 42.9MG 5 Ml NALLELY) 600 mg BIDM PO 05/06/17 07:30 05/13/17 07:29 05/10/17 07:32 600 MG Diltiazem HCl (Cardizem Cd Cap) 120 mg QAM PO 05/08/17 09:00 06/07/17 08:59 05/10/17 07:33 120 MG Tramadol HCl (Ultram Tab) 25 mg Q6H PRN PO 05/08/17 20:15 06/07/17 20:14 05/08/17 23:44 25 MG
[2017-05-10] MEDS: ACETAMINOPHEN 325 MG TAB PO PRN (19:09)
[2017-05-11 01:55] VITALS: PULSE 57; O2SAT 91
[2017-05-11] MEDS: LEVALBUTEROL 1.25MG/0.5ML NEB INH SCH ×3 (01:55→13:40)
[2017-05-11 07:14] VITALS: PULSE 84; O2SAT 90
[2017-05-11 07:58] VITALS: BP 137/80; PULSE 84; TEMP 36.6; O2SAT 90
[2017-05-11] MEDS: DOCUSATE SODIUM 100 MG CAP PO SCH (08:42)
[2017-05-11] MEDS: DULOXETINE (CYMBALTA) 30 MG CAP PO SCH (08:42)
[2017-05-11] MEDS: ASPIRIN 81 MG ECTAB PO SCH (08:43)
[2017-05-11] MEDS: METOPROLOL TARTRATE 25 MG TAB PO SCH (08:43)
[2017-05-11] MEDS: NYSTATIN CR 15 GM TUBE EXT SCH (08:44)
[2017-05-11] MEDS: DILTIAZEM HCL 120 MG CAPCR PO SCH (08:44)
[2017-05-11] MEDS: ACETAMINOPHEN 325 MG TAB PO PRN (08:47)
[2017-05-11] MEDS: HEPARIN SOD 5000 UNIT/0.5 ML CARP SQ SCH (09:00)
[2017-05-11] MEDS: BOOST GLUCOSE CONTROL PO SCH (09:01)
[2017-05-11] MEDS: INSULIN ASPART 100 UNITS/ML 3 ML PEN SC SCH ×2 (09:01→12:44)
[2017-05-11] MEDS: AMOXICILLIN/CLAVULANATE POTAS 600 MG/5 ML UDP PO SCH (09:47)
[2017-05-11 10:58] VITALS: BP 137/80; PULSE 84; TEMP 36.6; O2SAT 90
[2017-05-11] MEDS ORDERED: FRRS300 PO (11:49)
[2017-05-11] MEDS ORDERED: ERGO500011 PO (11:49)
[2017-05-11] MEDS ORDERED: ERGOCALCIFEROL 50,000 INTER.UNIT CAP PO SCH (12:00)
[2017-05-11 13:40] VITALS: PULSE 70; O2SAT 94
[2017-05-11] MEDS ORDERED: FERROUS SULFATE 325 MG TAB PO SCH (17:00)
== END 2017-05-11 14:08 | DRG 177 ==
LOC: EDBD 08:51 → C.EDB 08:54 → C.2T 13:00 → ENRESERV 14:04 → C.MS2W 05-10 18:47
PROVIDERS: ADMIT Internal Medicine; ATTEND Hospitalist
DX: J69.0 Pneumonitis due to inhalation of food and vomit (principal); J96.00 Acute respiratory failure, unspecified whether with hypoxia or hypercapnia; E43 Unspecified severe protein-calorie malnutrition; J21.9 Acute bronchiolitis, unspecified; Z68.1 Body mass index [BMI] 19.9 or less, adult; F17.200 Nicotine dependence, unspecified, uncomplicated; R55 Syncope and collapse; I48.2 Chronic atrial fibrillation; N48.1 Balanitis; E11.51 Type 2 diabetes mellitus with diabetic peripheral angiopathy without gangrene; E11.649 Type 2 diabetes mellitus with hypoglycemia without coma; S12.100D Unspecified displaced fracture of second cervical vertebra, subsequent encounter for fracture with routine healing; W06.XXXD Fall from bed, subsequent encounter; R51 Headache; R13.12 Dysphagia, oropharyngeal phase; R32 Unspecified urinary incontinence; D64.9 Anemia, unspecified; R94.6 Abnormal results of thyroid function studies; F03.90 Unspecified dementia, unspecified severity, without behavioral disturbance, psychotic disturbance, mood disturbance, and anxiety; F41.9 Anxiety disorder, unspecified; I25.10 Atherosclerotic heart disease of native coronary artery without angina pectoris; I10 Essential (primary) hypertension; Z95.1 Presence of aortocoronary bypass graft; Z95.2 Presence of prosthetic heart valve; Z91.81 History of falling; Z79.2 Long term (current) use of antibiotics; Z79.4 Long term (current) use of insulin; Z79.82 Long term (current) use of aspirin; Z79.899 Other long term (current) drug therapy; Z88.8 Allergy status to other drugs, medicaments and biological substances; Z80.0 Family history of malignant neoplasm of digestive organs

== ENCOUNTER 2017-05-16 09:32 | Inpatient (IN) | payer OTHER ==
[~2017-05-16] VITALS: Ht 170.2 cm; Wt 48.4 kg
[~2017-05-16 09:32] MED LIST changes: +AMOX600S PO; +DILT-202 PO; +ERGO500011 PO; +FRRS300 PO; -GABA-113 PO; -GLC/500 PO; +INSDGI SC; -LIDO4CRE10 TD; +LPR25 PO; -LSN5 PO; +MELA1TAB5 PO; -METO25TA3 PO; +NUTR-7 PO; +NVLG SQ; +NYSCR30 EXT; +ONDA8TAB12 PO; -ROPI2TAB6 PO; -SITA100T3 PO; +SITA50TA PO; -WARF2TAB8 PO; -[UNRECOGNIZED DRUG - OTHER] TD
[2017-05-16] MEDS ORDERED: HYDR-5688 PO (09:43)
[2017-05-16] MEDS ORDERED: ACET1SUS42 PO (09:43)
[2017-05-16 10:00] LABS: BASO % 0.1 %; BASO ABS # 0.02 K/uL (0-0.2); HEMATOCRIT 36.9 % (42-52); HEMOGLOBIN 12.1 g/dL (14.0-18.0); IG# 0.03 K/uL (0.00-0.02); LYMPH % 6.1 %; LYMPH ABS # 0.82 K/uL (1.2-3.4); MEAN CELL VOLUME 90.4 fL (80-100); MEAN CORPUSCULAR HEMOGLOBIN 29.7 pg (25-34); MEAN CORPUSCULAR HGB CONC 32.8 g/dl (32-36); MEAN PLATELET VOLUME 8.9 fL (7.4-10.4); MONO % 5.1 %; MONO ABS # 0.68 K/uL (0.11-0.59); NEUT % 88.5 %; PLATELET COUNT 433 K/uL (130-400); RED CELL DISTRIBUTION WIDTH CV 14.7 % (11.5-14.5); WHITE BLOOD COUNT 13.35 K/uL (4.8-10.8)
[2017-05-16 10:06] LABS: ISTAT CREATININE 0.8 mg/dl (0.6-1.3); ISTAT IONIZED CALCIUM 1.15 mmol/l (1.12-1.32); ISTAT POTASSIUM 4.5 mEq/L (3.3-5.0)
[2017-05-16 10:08] LABS: ALBUMIN 2.6 gm/dl (3.4-5.0); CREATININE 0.84 mg/dl (0.60-1.40); POTASSIUM 4.4 mmol/L (3.5-5.1)
[2017-05-16 10:10] LABS: INR 1.1 (0.9-1.1); PTT PATIENT 25.4 SECONDS (21.0-31.0)
[2017-05-16] MEDS ORDERED: METOPROLOL TARTRATE 1 MG/ML VIAL IV STA (10:15)
[2017-05-16 10:16] LABS: TOTAL PROTEIN 7.4 gm/dl (6.4-8.2)
[2017-05-16] MEDS ORDERED: DILTIAZEM BOLUS / DRIP IV STA (10:24)
[2017-05-16] MEDS ORDERED: DILTIAZEM HCL INJ 125 MG in DEXTROSE 5% 100ML IV PRN (10:30)
[2017-05-16] MEDS ORDERED: PIPERACILLIN/TAZOBACTAM 4.5 GM/100ML D5W IV STA (10:32)
[2017-05-16] MEDS ORDERED: VANCOMYCIN 1GM ED/ASU OMNICELL IV STA (10:32)
[2017-05-16] MEDS ORDERED: SODIUM CHLORIDE 0.9% 1000ML 1,000 ML IV STA (10:33)
--- NOTE | 2017-05-16 10:33 | DIAGNOSTIC IMAGING REPORT ---
SINGLE VIEW CHEST CLINICAL HISTORY: Atypical chest pain. FINDINGS: An AP, portable, upright chest radiograph is compared to chest x-ray and chest CT dated 05/01/2017. The examination is degraded by portable technique and patient rotation. The patient is status post midline sternotomy. The heart is enlarged and there is atherosclerotic calcification of the thoracic aorta. The pulmonary vasculature is noncongested. Emphysema and chronic interstitial thickening are similar to previous. There is patchy airspace consolidation at the right lung base with elevation of right hemidiaphragm. Mild patchy consolidative change is present at the left lung base. No large pleural effusion or pneumothorax is seen. The skeletal structures are osteopenic. The bony thorax is grossly intact. IMPRESSION: 1. Cardiomegaly and emphysema. 2. There is bibasilar airspace consolidation, right greater than left. The appearance is typical for pneumonia/aspiration pneumonitis. Clinical correlation will be required and radiographic follow-up to resolution is recommended. Electronically signed by: Suleiman Hernandez M.D. 05/16/2017 10:32 AM Dictated Date/Time: 05/16/2017 10:31 AM
[2017-05-16 11:25] LABS: INFLUENZA B ANTIGEN Neg for Influ B (NEG)
[2017-05-16] MEDS ORDERED: ONDANSETRON INJ 2 MG/ML 2 ML VIAL IV PRN (12:30)
[2017-05-16] MEDS ORDERED: ACETAMINOPHEN 325 MG TAB PO PRN (12:30)
[2017-05-16] MEDS ORDERED: NITROGLYCERIN 0.4 MG SL PER TAB CHARGE SL PRN (12:30)
[2017-05-16] MEDS ORDERED: ALBUT/IPRATROP 3MG/0.5MG NEB 3 ML VIAL INH PRN (13:15)
[2017-05-16] MEDS ORDERED: SODI1ENE RE (13:17)
[2017-05-16] MEDS ORDERED: IPRASOL4 INH (13:17)
[2017-05-16] MEDS ORDERED: BISA10SU5 RE (13:17)
[2017-05-16] MEDS ORDERED: MOML PO (13:17)
--- NOTE | 2017-05-16 13:32 | Gastrointestinal Consultation ---
Gastrointestinal Consultation Date of Consultation: May 16, 2017 Attending Physician: Althea Consulting Physician: Junaid Reason for Consultation: PEG, aspiration History of Present Illness Patient is a 86 year old male w/ history listed below recently admitted and discharge - readmitted for dyspnea. Pt was seen and evaluated, chart reviewed. Family at bedside, in B4 of the ED. On arrival afib w/ RVR likely triggered to hypoxia secondary to aspiration pneumonia. Pt denies CP and SOB. He does note persistent issues with dysphagia. Acutely worse since cervical spinal fracture in collar. Has issues w/ both solids and liquids. + coughing no odynophagia. Pt is a poor historian but appears to be alert and oriented x 3. Denies fever, chills, CP, SOB. He is afebrile, hypotensive and tachycardiac. Leukocytosis at 14. BNP 10,000. Troponin elevated. Chest XR 05/16/17: cardiomegaly and emphysema. There is bibasilar airspace consolidation, right greater than left. The appearance is typical for pneumonia/ aspiration pneumonitis. Clinical correlation will be required and radiographic follow-up to resolution is recommended. SILK SCREEN PROCESSOR 04/13/17: PO diet of pureed solids with nectar thick liquids Meds crushed Total assistance- ensure slow rate of intake, small bites/sips HOB upright to 90 degrees. If pt OOB in chair, please ensure feet are touching the ground. Aspiration precautions maintained. If s/sx present, downgrade diet as deemed appropriate and re-consult speech. Past Medical/Surgical History Medical Problems: (1) Dens fracture Status: Acute (2) Syncope Status: Acute Past Medical History: T2DM, HTN, aspiration pneumonia, falls, cervical spine fracture, anemia, anxiety , afib aortic valve stenosis CAD, CKD, PVD Past Surgical History: cardiac cath, CABG, aortic valve replacement, appendectomy, lumbar spine surgery , tonsillectomy Family History FH: colon cancer Social History Smoking Status: Former Smoker Alcohol Use: none Drug Use: none Marital Status: Housing Status: lives with significant other Occupation Status: retired Allergies Coded Allergies: Nortriptyline (Verified Allergy, Severe, CHEST PAIN-"BURNING FROM MID CHEST TO THROAT"., 05/16/17) Current Medications Home Meds and Scripts Medications Dose Route/Sig Max Daily Dose Days Date Category Dose Instructions Milk Of Magnesia (Magnesium Hydroxide) 30 Ml Susp 30 Ml PO DAILY PRN 05/16/17 Reported Fleet Enema Six Pack (Sodium Phosphates) 1 Asha Asha 1 Dose RE DAILY PRN 05/16/17 Reported Duoneb (Ipratropium-Albuterol) 3 Ml Nebu 1 Treatment INH Q6H PRN 05/16/17 Reported Bisacodyl 10 Mg Sup 10 Mg RE DAILY PRN 05/16/17 Reported [place] 5MG/325MG (Acetaminophen/Hydrocodone Bitart) Tab 1 Tablet PO Q6 PRN 05/16/17 Reported PRN PAIN Acetaminophen 160 Mg/5 Ml Radha 20.3 Ml PO Q6 PRN 05/16/17 Reported Ferrous Sulfate 325 Mg Tab 325 Mg PO BIDM 30 05/11/17 Rx Vitamin D 10031 Unit (Ergocalciferol) 50,000 Unit Cap 50,000 Interunit PO Q7D@1200 90 05/11/17 Rx Diltiazem Cd (Diltiazem HCl) 120 Mg Capcr 120 Mg PO QAM 30 05/10/17 Rx Nystatin Cream (Nystatin) 90 Appln/30 Gm Cr 0 EXT BID 05/01/17 Reported APPLY TO AFFECTED AREA- Penis BID Zofran (Ondansetron Hcl) 8 Mg Tab 8 Mg PO Q8 05/01/17 Reported Lopressor (Metoprolol Tartrate) 25 Mg Tab 25 Mg PO BID 05/01/17 Reported Novolog (Insulin Aspart) 100 Units/Ml Inj 8 Units SQ TIDM 05/01/17 Reported Kp Melatonin (Melatonin) 3 Mg Tab 3 Mg PO HS 05/01/17 Reported Lantus (Insulin Glargine) 100 Unit/Ml Inj 16 Units SC QPM 05/01/17 Reported Aspirin Ec (Aspirin) 81 Mg Tab 81 Mg PO QAM 04/02/17 Reported Stool Softener (Docusate Sodium) 100 Mg Cap 100 Mg PO BID 04/02/17 Reported Vitron-C (Iron-Vitamin C) 1 Tab Tab 1 Tab PO BID 04/02/17 Reported DOSE 65-125MG. Cymbalta (Duloxetine HCl) 30 Mg Cap 30 Mg PO QAM 30 04/02/17 Reported Review of Systems Constitutional: No fever, No chills Respiratory: + cough, + sputum, + shortness of breath Cardiac: No chest pain Abdomen: + dysphagia, No pain, No nausea, No vomiting, No diarrhea, No constipation, No GI bleeding Physical Exam Date Time Temp Pulse Resp B/P (MAP) Pulse Ox O2 Delivery O2 Flow Rate FiO2 05/16/17 12:48 103 24 106/68 94 Nasal Cannula 3.0 05/16/17 12:39 100 05/16/17 11:40 113 28 123/79 93 Nasal Cannula 3.0 05/16/17 10:46 109 26 122/89 93 Nasal Cannula 3.0 05/16/17 09:52 109 05/16/17 09:44 37.1 115 32 154/88 92 Nasal Cannula 3.0 05/16/17 09:44 87 Room Air 05/16/17 09:44 93 Nasal Cannula 3.0 05/16/17 09:44 93 Nasal Cannula 3.0 General Appearance: no apparent distress, + pertinent finding (zuni collar intact ) Eyes: PERRL ENT: hearing grossly normal Respiratory/Chest: no respiratory distress, no accessory muscle use, + decreased breath sounds, + crackles Cardiovascular: no gallop, no JVD, + tachycardia Abdomen: normal bowel sounds, non tender, soft, no organomegaly, no pulsatile mass, + pertinent finding (no large scarring on abd, no evidence of previous PEG site ) Neurologic/Psych: alert, normal mood/affect Skin: normal color, warm/dry Laboratory Results Last 24 Hours Test 05/16/17 09:43 05/16/17 09:49 05/16/17 09:52 05/16/17 09:55 White Blood Count 13.35 K/uL Red Blood Count 4.08 M/uL Hemoglobin 12.1 g/dL Hematocrit 36.9 % Mean Corpuscular Volume 90.4 fL Mean Corpuscular Hemoglobin 29.7 pg Mean Corpuscular Hemoglobin Concent 32.8 g/dl Platelet Count 433 K/uL Mean Platelet Volume 8.9 fL Neutrophils (%) (Auto) 88.5 % Lymphocytes (%) (Auto) 6.1 % Monocytes (%) (Auto) 5.1 % Eosinophils (%) (Auto) 0.0 % Basophils (%) (Auto) 0.1 % Neutrophils # (Auto) 11.80 K/uL Lymphocytes # (Auto) 0.82 K/uL Monocytes # (Auto) 0.68 K/uL Eosinophils # (Auto) 0.00 K/uL Basophils # (Auto) 0.02 K/uL RDW Standard Deviation 48.0 fL RDW Coefficient of Variation 14.7 % Immature Granulocyte % (Auto) 0.2 % Immature Granulocyte # (Auto) 0.03 K/uL Prothrombin Time 11.6 SECONDS Prothromb Time International Ratio 1.1 Activated Partial Thromboplast Time 25.4 SECONDS Partial Thromboplastin Ratio 1.0 Sodium Level 132 mmol/L Potassium Level 4.4 mmol/L Chloride Level 98 mmol/L Carbon Dioxide Level 28 mmol/L Anion Gap 6.0 mmol/L 18.0 mmol/L Blood Urea Nitrogen 13 mg/dl Creatinine 0.84 mg/dl Est Creatinine Clear Calc Drug Dose 45.4 ml/min Estimated GFR () 90.6 Estimated GFR (Non- 78.2 BUN/Creatinine Ratio 15.9 Random Glucose 87 mg/dl Calcium Level 9.0 mg/dl Total Bilirubin 0.6 mg/dl Direct Bilirubin 0.2 mg/dl Aspartate Amino Transf (AST/SGOT) 19 U/L Alanine Aminotransferase (ALT/SGPT) 13 U/L Alkaline Phosphatase 89 U/L Troponin I 0.136 ng/ml Pro-B-Type Natriuretic Peptide 9775 pg/ml Total Protein 7.4 gm/dl Albumin 2.6 gm/dl Lipase 37 U/L Bedside Hemoglobin 12.9 g/dl Bedside Hematocrit 38 % Bedside Sodium 135 mEq/L Bedside Potassium 4.5 mEq/L Bedside Chloride 96 mEq/L Bedside Total CO2 27 mEq/l Bedside Blood Urea Nitrogen 13 mg/dl Bedside Creatinine 0.8 mg/dl Bedside Glucose (other) 90 mg/dl Bedside Ionized Calcium (Nithin) 1.15 mmol/l Bedside Troponin I 0.120 ng/ml Test 05/16/17 10:18 05/16/17 10:49 Venous Blood pH 7.42 Venous Blood Partial Pressure CO2 42 mmHg Venous Blood Partial Pressure O2 31 mmHg Venous Blood HCO3 27 mmol/L Venous Blood Oxygen Saturation < 60.0 % Venous Blood Base Excess 2.3 mEq/L Lactic Acid Level 1.9 mmol/L Influenza Type A Antigen Neg for Influ A Influenza Type B Antigen Neg for Influ B Impression 86 year old male admitted with dyspnea, NV, afib w/ RVR elevated troponin and elevated BNP. Chest XR w/ evidence of aspiration pneumonia. Pt has known oropharyngeal dysphagia worse after C2 fracture. Previous discussion about PEG tube which was deferred during last admission. He is certainly not stable for PEG tube placement at this time, however, once stable GI would recommend transfer to a tertiary care center for PEG tube placement through interventional radiology avoiding anesthesia given unstable cervical fracture. Plan - No role for endoscopy - Once stable from a cardiopulmonary standpoint can consider transfer to a tertiary care center for IR placed PEG tube due to unstable cervical spine fracture - It was discussed at length that PEG does not eliminate all aspiration risks - It was discussed that the PEG tube could help with aspiration associated w / his transfer dysphagia - Appreciate cardiology consultation - Appreciate SILK SCREEN PROCESSOR recommendations for safe swallowing - Appreciate primary service management of pneumonia, chronic disease - GI will sign off. Please call with any questions or concerns. Will discuss with Dr. Quiroga.
[2017-05-16] MEDS ORDERED: PHARMACY GLYCEMIC MGMT CONSULT PRN (13:41)
[2017-05-16] MEDS ORDERED: VANCOMYCIN CONSULT ACTIVE PRN (13:42)
[2017-05-16] MEDS ORDERED: PIPERACILL/TAZOBAC CONSULT ACTIVE PRN (13:45)
[2017-05-16] MEDS ORDERED: METOPROLOL TARTRATE 1 MG/ML VIAL IV ONE (13:50)
--- NOTE | 2017-05-16 14:21 | History and Physical ---
History & Physical Date & Time of Service: May 16, 2017 ~ 12:00 Chief Complaint: Shortness of breath, cough Primary Care Physician: Kashif Cullen M.D. History of Present Illness 86-year-old male who presents to the ED with shortness of breath and cough. Approximately 6 weeks ago patient suffered a fall out of bed and developed a C2 odontoid fracture. Patient was managed at [facility]. Patient was admitted to [facility] 05/01 through 05/10 for aspiration pneumonia. Patient was discharged to [facility]. He was discharged on Augmentin and has since completed the course. Patient was evaluated by speech and GI during his previous admission. Patient was placed on a modified diet. PEG tube was also discussed however patient declined. Since yesterday, patient developed increasing shortness of breath and cough. Patient has poor insight and history is limited from him. Per review of records sent from [facility], patient had increased oxygen requirements. He did not improve with supplemental O2 and nebulized treatments. Patient was then transferred to the ED for further evaluation. In the ED, patient was tachycardic in the 110's. He was hypoxic on room air at 87%, this improved with oxygen 3 L via nasal cannula. CXR shows bibasilar consolidations consistent with aspiration pneumonia. EKG shows ST elevations in the anterolateral leads with T-wave inversions in the inferior leads. Troponin is elevated at 0.136. Patient was evaluated by maintenance department technician, Dr. Villanueva, in the ED who does not feel this represents ACS but rather demand ischemia from acute illness. Patient was given IVF, IV Zosyn, and IV vancomycin. Past Medical/Surgical History Medical Problems: (1) Anemia due to chronic kidney disease Status: Chronic (2) Atrial fibrillation Status: Chronic (3) CKD (chronic kidney disease) Status: Chronic (4) Coronary artery disease Permanent Comment: S/P CABG 3, cardiac catheterization 2010 showed patent grafts and 100% occluded RCA and proximal circumflex Status: Chronic (5) Diabetic neuropathy Status: Chronic (6) DM type 2 (diabetes mellitus, type 2) Status: Chronic (7) Dyslipidemia Status: Chronic (8) Hypertension Status: Chronic (9) Odontoid fracture Status: Chronic (10) PVD (peripheral vascular disease) Status: Chronic Surgical Problems: (1) History of aortic valve replacement Status: Chronic (2) History of appendectomy Status: Chronic (3) History of cataract surgery Status: Chronic (4) History of right hip replacement Status: Chronic (5) S/P CABG x 3 Permanent Comment: 2003 Status: Chronic Family History Noncontributory secondary to patient's advanced age Social History Smoking Status: Former Smoker Alcohol Use: none Marital Status: Housing status: senior care Immunizations History of Influenza Vaccine: Yes Influenza Vaccine Date: Dec 06, 2016 History of Tetanus Vaccine?: Yes Tetanus Immunization Date: Apr 02, 1979 History of Pneumococcal: Yes Pneumococcal Date: Aug 05, 2014 Allergies Coded Allergies: Nortriptyline (Verified Allergy, Severe, CHEST PAIN-"BURNING FROM MID CHEST TO THROAT"., 05/16/17) Home Medications Scheduled Aspirin (Aspirin Ec), 81 MG PO QAM Diltiazem HCl (Diltiazem Cd), 120 MG PO QAM Docusate Sodium (Stool Softener), 100 MG PO BID Duloxetine HCl (Cymbalta), 30 MG PO QAM Ergocalciferol (Vitamin D 25690 Unit), 50,000 INTERUNIT PO Q7D@1200 Ferrous Sulfate (Ferrous Sulfate), 325 MG PO BIDM Insulin Aspart (Novolog), 8 UNITS SQ TIDM Insulin Glargine (Lantus), 16 UNITS SC QPM Iron-Vitamin C (Vitron-C), 1 TAB PO BID Melatonin (Kp Melatonin), 3 MG PO HS Metoprolol Tartrate (Lopressor), 25 MG PO BID Nystatin (Nystatin Cream), 0 EXT BID Ondansetron Hcl (Zofran), 8 MG PO Q8 Scheduled PRN Acetaminophen (Acetaminophen), 20.3 ML PO Q6 PRN for Pain Bisacodyl (Bisacodyl), 10 MG RE DAILY PRN for Constipation Hydrocodone/Acetaminophen 5MG/325MG ([place] 5MG/325MG), 1 TABLET PO Q6 PRN for Pain Ipratropium-Albuterol (Duoneb), 1 TREATMENT INH Q6H PRN for Shortness of Breath Magnesium Hydroxide (Milk Of Magnesia), 30 ML PO DAILY PRN for Constipation Sodium Phosphates (Fleet Enema Six Pack), 1 DOSE RE DAILY PRN for Constipation Review of Systems Unobtainable due to patient's mental status Physical Exam Vital Signs Date Time Temp Pulse Resp B/P (MAP) Pulse Ox O2 Delivery O2 Flow Rate FiO2 05/16/17 13:00 114 28 107/59 93 Nasal Cannula 2.0 05/16/17 12:48 103 24 106/68 94 Nasal Cannula 3.0 05/16/17 12:39 100 05/16/17 11:40 113 28 123/79 93 Nasal Cannula 3.0 05/16/17 10:46 109 26 122/89 93 Nasal Cannula 3.0 05/16/17 09:52 109 05/16/17 09:44 37.1 115 32 154/88 92 Nasal Cannula 3.0 05/16/17 09:44 87 Room Air 05/16/17 09:44 93 Nasal Cannula 3.0 05/16/17 09:44 93 Nasal Cannula 3.0 General Appearance: no apparent distress, + thin, + pertinent finding ( Chronically ill-appearing) Head: normocephalic, atraumatic Eyes: normal inspection, EOMI, sclerae normal ENT: hearing grossly normal, + pertinent finding (Mucous membranes dry) Neck: + pertinent finding (Cervical spine collar in place) Respiratory/Chest: no respiratory distress, + decreased breath sounds ( Bilateral bases) Cardiovascular: no edema, normal peripheral pulses, + irregularly irregular ( Heart rate in the 110's) Abdomen/GI: normal bowel sounds, non tender, soft, no organomegaly Extremities/Musculoskelatal: normal inspection, no calf tenderness, normal capillary refill Neurologic/Psych: no motor/sensory deficits, alert, + disoriented (To place, time, situation) Skin: normal color, warm/dry Diagnostics Laboratory Results Results Past 24 Hours Test 05/16/17 09:43 05/16/17 09:49 05/16/17 09:52 05/16/17 09:55 Range/Units White Blood Count 13.35 4.8-10.8 K/uL Red Blood Count 4.08 4.7-6.1 M/uL Hemoglobin 12.1 14.0-18.0 g/dL Hematocrit 36.9 42-52 % Mean Corpuscular Volume 90.4 80-100 fL Mean Corpuscular Hemoglobin 29.7 25-34 pg Mean Corpuscular Hemoglobin Concent 32.8 32-36 g/dl Platelet Count 433 130-400 K/uL Mean Platelet Volume 8.9 7.4-10.4 fL Neutrophils (%) (Auto) 88.5 % Lymphocytes (%) (Auto) 6.1 % Monocytes (%) (Auto) 5.1 % Eosinophils (%) (Auto) 0.0 % Basophils (%) (Auto) 0.1 % Neutrophils # (Auto) 11.80 1.4-6.5 K/uL Lymphocytes # (Auto) 0.82 1.2-3.4 K/uL Monocytes # (Auto) 0.68 0.11-0.59 K/uL Eosinophils # (Auto) 0.00 0-0.5 K/uL Basophils # (Auto) 0.02 0-0.2 K/uL RDW Standard Deviation 48.0 36.4-46.3 fL RDW Coefficient of Variation 14.7 11.5-14.5 % Immature Granulocyte % (Auto) 0.2 % Immature Granulocyte # (Auto) 0.03 0.00-0.02 K/uL Prothrombin Time 11.6 9.0-12.0 SECONDS Prothromb Time International Ratio 1.1 0.9-1.1 Activated Partial Thromboplast Time 25.4 21.0-31.0 SECONDS Partial Thromboplastin Ratio 1.0 Sodium Level 132 136-145 mmol/L Potassium Level 4.4 3.5-5.1 mmol/L Chloride Level 98 98-107 mmol/L Carbon Dioxide Level 28 21-32 mmol/L Anion Gap 6.0 18.0 16-25 mmol/L Blood Urea Nitrogen 13 7-18 mg/dl Creatinine 0.84 0.60-1.40 mg/dl Est Creatinine Clear Calc Drug Dose 45.4 ml/min Estimated GFR () 90.6 Estimated GFR (Non- 78.2 BUN/Creatinine Ratio 15.9 10-20 Random Glucose 87 70-99 mg/dl Calcium Level 9.0 8.5-10.1 mg/dl Total Bilirubin 0.6 0.2-1 mg/dl Direct Bilirubin 0.2 0-0.2 mg/dl Aspartate Amino Transf (AST/SGOT) 19 15-37 U/L Alanine Aminotransferase (ALT/SGPT) 13 12-78 U/L Alkaline Phosphatase 89 45-117 U/L Troponin I 0.136 0-0.045 ng/ml Pro-B-Type Natriuretic Peptide 9775 0-1800 pg/ml Total Protein 7.4 6.4-8.2 gm/dl Albumin 2.6 3.4-5.0 gm/dl Lipase 37 73-393 U/L Bedside Hemoglobin 12.9 14.0-18.0 g/dl Bedside Hematocrit 38 42-52 % Bedside Sodium 135 135-144 mEq/L Bedside Potassium 4.5 3.3-5.0 mEq/L Bedside Chloride 96 101-112 mEq/L Bedside Total CO2 27 24-31 mEq/l Bedside Blood Urea Nitrogen 13 7-18 mg/dl Bedside Creatinine 0.8 0.6-1.3 mg/dl Bedside Glucose (other) 90 70-99 mg/dl Bedside Ionized Calcium (Nithin) 1.15 1.12-1.32 mmol/l Bedside Troponin I 0.120 0-0.045 ng/ml Test 05/16/17 10:18 05/16/17 10:49 Range/Units Venous Blood pH 7.42 7.36-7.41 Venous Blood Partial Pressure CO2 42 38.0-50.0 mmHg Venous Blood Partial Pressure O2 31 mmHg Venous Blood HCO3 27 mmol/L Venous Blood Oxygen Saturation < 60.0 % Venous Blood Base Excess 2.3 mEq/L Lactic Acid Level 1.9 0.4-2.0 mmol/L Influenza Type A Antigen Neg for Influ A NEG Influenza Type B Antigen Neg for Influ B NEG Microbiology Results 05/16/17 Blood Culture, Ordered Pending 05/16/17 Blood Culture, Ordered Pending 05/16/17 Gram Stain, Received Pending 05/16/17 Sputum Culture, Received Pending Diagnostic Radiology CXR IMPRESSION: 1. Cardiomegaly and emphysema. 2. There is bibasilar airspace consolidation, right greater than left. The appearance is typical for pneumonia/aspiration pneumonitis. Clinical correlation will be required and radiographic follow-up to resolution is recommended. Impression Assessment and Plan Acute hypoxic respiratory failure Sepsis Recurrent aspiration pneumonia -Admit to telemetry -Patient presenting from [facility] with increasing shortness of breath, cough, oxygen requirements; recent admission to [facility] 05/01 through 05/10 for aspiration pneumonia -Has a long-standing history of dysphasia however recently worsened with cervical spine fracture -PEG tube was discussed during last admission however patient declined -On presentation, WBC 13 K, heart rate in the 110s, 87% on room air which improved with oxygen 3 L via nasal cannula; afebrile, blood pressure stable, lactic acid normal -S/P Vanco and Zosyn in the ED; will continue with -IVF, blood and sputum cultures (noted that cultures were obtained after antibiotics were given) -n.p.o., speech evaluation -Patient reports he is willing to reconsider PEG tube placement; was evaluated by GI during last admission and anesthesia recommended transfer to tertiary care center given recent cervical spine fracture -GI consult, case discussed with BESSIE Tellez Type II myocardial infarction, history of CAD -EKG shows ST elevations in the anterolateral leads with T-wave inversions in the inferior leads -Dr. Villanueva from interventional cardiology evaluated the patient in the ED who feels as though EKG changes are reflective of demand ischemia rather than ACS -Patient denies chest pain -Initial troponin 0.136, will continue to trend and if significant increase, will start IV heparin -Discussed with Dr. Guerrero regarding recent C-spine fracture who advised that there is no contraindication to anticoagulation -Resting echo -IV beta-gustavo, rectal aspirin due to aspiration -Cardiology consult, case discussed with Dr. Burks Atrial fibrillation with RVR -Will try to control rates with IV beta-blockers -Coumadin recently stopped due to fall risk Diabetes -Hgb A1c 7. -Given n.p.o. status, will monitor blood sugars closely and provide NovoLog and/ or Lantus as per protocol History of aortic valve replacement DVT prophylaxis -SQ heparin CODE STATUS -Patient is a full code as per my discussion with his son and are at the bedside. Disposition - In my clinical judgment this beneficiary meets acute admission criteria, established by [facility], that includes being hospitalized through two midnights. Attending addendum: The patient was seen and examined the emergency room in presence of family members. He was discharged from the hospital on 6 of this month following an attack of aspiration pneumonia. At that time he refused to have PEG tube placement. He has traumatic cervical cord cervical spine injury and cannot have PEG tube placed over here. He is back again from [facility] with increasing shortness of breath cough and found to have bibasilar infiltration consistent with aspiration pneumonia. Incidentally he has noted to have ST elevation in anterior leads with some other EKG changes and increase in troponin suggestive of ACS. He remains reasonably asymptomatic. On examination in the emergency room, He was not having any acute distress. He has a cervical collar in situ. Chest decreased breath sounds minimal bibasilar rales. Heart-S1-S2 irregular. Abdomen-soft nontender, no organomegaly, bowel sounds present. Extremities-no edema. His labs, imaging studies and EKG revealed. He was started with intravenous antibiotic and will be evaluated by GI and cardiology. We need to transfer to tertiary care center if PEG tube placement is planned. Agree with assessment and plan as mentioned above. Dr. Edgar Haas Resuscitation Status VTE Prophylaxis Will order VTE Prophylaxis: Yes
[2017-05-16] MEDS ORDERED: GLUCAGON FOR INJ 1 MG VIAL SQ PRN (14:30)
[2017-05-16] MEDS ORDERED: GLUCOSE 40% GEL 15 GM TUBE PO PRN (14:30)
[2017-05-16] MEDS ORDERED: GLUCOSE 10 TABS/TUBE PO PRN (14:30)
--- NOTE | 2017-05-16 14:37 | Pharmacy Progress Note ---
Pharmacy Abx Initial Consult Date of Service May 16, 2017. Pharmacy Dosing Scope Date of Consult: 05/16/17 Consultation requested by: BESSIE Wilkes Pharmacy is consulted to initiate vancomycin and Zosyn IV dosing therapy, order appropriate labs and adjust drug dose/frequency. Subjective The patient is a 86 year old male admitted on 05/16/17 Objective Height (Feet): 5 Height (Inches): 9.00 Weight (Kilograms): 52.800 Vital Signs (Past 12Hrs) Vital Signs Past 12 Hours Date Time Temp Pulse Resp B/P (MAP) Pulse Ox O2 Delivery O2 Flow Rate FiO2 05/16/17 14:16 90 24 118/73 96 Room Air 3.0 05/16/17 13:59 110 107/59 05/16/17 13:00 114 28 107/59 93 Nasal Cannula 2.0 05/16/17 12:48 103 24 106/68 94 Nasal Cannula 3.0 05/16/17 12:39 100 05/16/17 11:40 113 28 123/79 93 Nasal Cannula 3.0 05/16/17 10:46 109 26 122/89 93 Nasal Cannula 3.0 05/16/17 09:52 109 05/16/17 09:44 37.1 115 32 154/88 92 Nasal Cannula 3.0 05/16/17 09:44 87 Room Air 05/16/17 09:44 93 Nasal Cannula 3.0 05/16/17 09:44 93 Nasal Cannula 3.0 Lab Results (24Hrs) Laboratory Tests (24 Hours) Test 05/16/17 09:43 05/16/17 10:18 White Blood Count 13.35 K/uL (4.8-10.8) H Red Blood Count 4.08 M/uL (4.7-6.1) L Hemoglobin 12.1 g/dL (14.0-18.0) L Hematocrit 36.9 % (42-52) L Mean Corpuscular Volume 90.4 fL (80-100) Mean Corpuscular Hemoglobin 29.7 pg (25-34) Mean Corpuscular Hemoglobin Concent 32.8 g/dl (32-36) Platelet Count 433 K/uL (130-400) H Mean Platelet Volume 8.9 fL (7.4-10.4) Neutrophils (%) (Auto) 88.5 % Lymphocytes (%) (Auto) 6.1 % Monocytes (%) (Auto) 5.1 % Eosinophils (%) (Auto) 0.0 % Basophils (%) (Auto) 0.1 % Neutrophils # (Auto) 11.80 K/uL (1.4-6.5) H Lymphocytes # (Auto) 0.82 K/uL (1.2-3.4) L Monocytes # (Auto) 0.68 K/uL (0.11-0.59) H Eosinophils # (Auto) 0.00 K/uL (0-0.5) Basophils # (Auto) 0.02 K/uL (0-0.2) Lactic Acid Level 1.9 mmol/L (0.4-2.0) Micro Results Date/Time Source Procedure Growth Status 05/16/17 14:16 Blood Blood Culture Pending Received 05/16/17 14:14 Blood Blood Culture Pending Received 05/16/17 12:15 Sputum Expectorated Sputum Gram Stain Pending Received 05/16/17 12:15 Sputum Expectorated Sputum Sputum Culture Pending Received Risk Factors for Resistance * Resident in a [facility] or extended-care facility * Hospitalization for 48 hours or more within the past 90 days * Antimicrobial use within the last 90 days - recently discharged on Augmentin to complete course for aspiration pneumonia Assessment & Plan Assessment 86 year old male admitted for recurrent aspiration pneumonia. Additional PMH other than noted above includes diabetes and CKD. Blood and sputum cultures obtained. MRSA nasal swab also ordered but uncollected. Plan Vancomycin IV * Est PK parameters: Vd 0.7 L/kg, Tyron 0.042 hr-1, t1/2 16.5 hrs * Loading dose: 1000 mg (19 mg/kg) - already given in the ER * Maintenance dose: 750 mg IV (14 mg/kg) every 18 hours - will start 12 hours after load since it was only a partial load * Goal trough level for aspiration pneumonia : 15 to 20 mcg/mL * Trough level ordered for 05/18/17 prior to the 4th dose Piperacillin/tazobactam * 4.5 g bolus administered over 30 minutes (already given in the ER), then 3.375 g IV extended infusion every 8 hours for CrCl greater than 20 mL/min Pharmacy will continue to follow and will adjust dose/frequency as necessary. Thank you.
[2017-05-16 15:00] VITALS: BP 125/72; PULSE 90; TEMP 36.9; O2SAT 96; BMI 17.1
--- NOTE | 2017-05-16 15:02 | Pharmacy Progress Note ---
Glycemic Control Intl Consult Date of Service May 16, 2017. Scope Glycemic Pharmacist consulted by Dr Sharlene LA on 05/16/17 for glycemic control and to write orders per [facility] inpatient glycemic control protocol Objective Weight (Kilograms): 52.800 Accuchecks BSG (last 24hrs): Test 05/16/17 09:43 Random Glucose 87 mg/dl (70-99) Laboratory Data (last 24hrs) Test 05/16/17 09:43 05/16/17 09:52 Anion Gap 6.0 mmol/L 18.0 mmol/L BUN/Creatinine Ratio 15.9 Blood Urea Nitrogen 13 mg/dl Creatinine 0.84 mg/dl Potassium Level 4.4 mmol/L Sodium Level 132 mmol/L White Blood Count 13.35 K/uL Red Blood Count 4.08 M/uL Hemoglobin 12.1 g/dL Hematocrit 36.9 % Mean Corpuscular Volume 90.4 fL Mean Corpuscular Hemoglobin 29.7 pg Mean Corpuscular Hemoglobin Concent 32.8 g/dl Platelet Count 433 K/uL Mean Platelet Volume 8.9 fL Neutrophils (%) (Auto) 88.5 % Lymphocytes (%) (Auto) 6.1 % Monocytes (%) (Auto) 5.1 % Eosinophils (%) (Auto) 0.0 % Basophils (%) (Auto) 0.1 % Neutrophils # (Auto) 11.80 K/uL Lymphocytes # (Auto) 0.82 K/uL Monocytes # (Auto) 0.68 K/uL Eosinophils # (Auto) 0.00 K/uL Basophils # (Auto) 0.02 K/uL HbA1c -Hgb A1c 7.3% 04/2017 per H&P Recent Pertinent Medications Outpatient Anti-diabetic Regimen: * Glargine 16 units SQ PM * NovoLog 8 units SQ TIDM Risk Factors for Insulin Resistance: * Infection: Assessment & Plan ASSESSMENT: * 86yo T2DM male with well controlled diabetes as an outpatient on SQ basal bolus insulin regimen (total daily outpatient dose ~40 units/day) * Pt recently admitted and required very minimal insulin for adequate glycemic control * BSG/GLU this morning is slightly below goal range for inpatient targets (but not low) * Will initiate conservative dosing (pt NPO) per previous admission and titrate based on BSG trends. * Less stringent control needed based on age. But, ideally maintain BSGs <200 mg/dl to facilitate infection healing PLAN FOR INPATIENT GLYCEMIC CONTROL: * Basal insulin * Lantus 5 units SQ BID if BSG >150 mg/dl * Hold Lantus if BSG 150mg/dl or below * Bolus insulin * NovoLog per scale ACHS or Q6hrs while NPO * Goal Range: Low 120 mg/dL - High 160 mg/dL * Correction Factor: 50 mg/dL/unit * Nutritional / Prandial insulin per carb ratio of 1 unit per 20 grams CHO consumed * Please note that the plan above was derived based on current level of insulin resistance and hospital stress. These recommendations are appropriate for inpatient admission only. Plan of care upon discharge will need to be reassessed to avoid potential outpatient hypo/hyperglycemia. Thank you.
[2017-05-16] MEDS: SODIUM CHLORIDE 0.9% 1000ML 1,000 ML IV SCH (15:50)
[2017-05-16] MEDS: PIPERACILL/TAZOBAC IV 3.375 GM in DEXTROSE 5% 100ML 100 ML IV SCH (15:56)
[2017-05-16] MEDS ORDERED: ASPIRIN 300 MG SUPP PR SCH (16:00)
--- NOTE | 2017-05-16 16:11 | ECHOCARDIOGRAM REPORT ---
*NOTICE TO RECEIVING [employer] This information is strictly Confidential and protected under [place] law. [place] law prohibits you from making any further disclosure of this information unless further disclosure is expressly permitted by the written consent of the person to whom it pertains or is authorized by law. A general authorization for the release of medical or other information is not sufficient for this purpose. Hospital accepts no responsibility if the information is made available to any other person, INCLUDING THE PATIENT. Interpretation Summary * Name: SOHA HUNT Study Date: 05/16/2017 01:27 PM BP: 106/68 mmHg * Patient Location: .ED HR: 95 * : 1930 (M/d/yyyy) Gender: Male Height: 69 in * Age: 86 yrs Ethnicity: CA Weight: 116 lb * Ordering Physician: Sharlene Oh * Performed By: Becki Chavis RDCS * * Reason For Study: EKG CHANGES, ELEVATED TROP, AVR * BSA: 1.6 m2 * -- Conclusions -- * This is a technically limited study. * The left ventricle is grossly normal size. * The left ventricular ejection fraction is grossly normal. * The right ventricle is not well visualized. * The left atrium is severely dilated. * The right atrium is severely dilated. * There is a prosthetic aortic valve by history which is not well visualized. * No hemodynamically significant valvular aortic stenosis. * There is no significant aortic regurgitation. Procedure Details * A complete two-dimensional transthoracic echocardiogram was performed (2D, M-mode, Doppler and color flow Doppler). * The study was technically limited. * The study was technically difficult. * Limited views were obtained. * There were technical limitations due to patient'sbody habitus Left Ventricle * The left ventricle is grossly normal size. * The left ventricular ejection fraction is grossly normal. Right Ventricle * The right ventricle is not well visualized. Atria * The left atrium is severely dilated. * The right atrium is severely dilated. * No ASD detected; PFO is not assessed. Mitral Valve * The mitral valve is not well visualized. * Significant mitral regurgitation is absent. Tricuspid Valve * The tricuspid valve is not well visualized. * Significant tricuspid regurgitation is absent. Aortic Valve * The aortic valve is not well visualized. * No hemodynamically significant valvular aortic stenosis. * There is no significant aortic regurgitation. Pulmonic Valve * The pulmonic valve is not well visualized. MMode 2D Measurements and Calculations IVSd 1.3 cm IVSs 1.7 cm LVIDd 4.4 cm LVIDs 3.1 cm LVPWd 0.73 cm LVPWs 1.6 cm IVS/LVPW 1.8 FS 28.5 % EDV(Teich) 87.8 ml ESV(Teich) 39.4 ml EF(Teich) 55.1 % EDV(cubed) 85.4 ml ESV(cubed) 31.2 ml EF(cubed) 63.4 % % IVS thick 27.5 % % LVPW thick 113.4 % LV mass(C)d 153.6 grams LV mass(C)dI 93.7 grams/m\S\2 LV mass(C)s 192.3 grams LV mass(C)sI 117.4 grams/m\S\2 SV(Teich) 48.4 ml SI(Teich) 29.6 ml/m\S\2 SV(cubed) 54.1 ml SI(cubed) 33.0 ml/m\S\2 LA dimension 4.8 cm LVOT diam 1.8 cm LVOT area 2.5 cm\S\2 LVAd ap4 21.1 cm\S\2 LVLd ap4 6.0 cm EDV(MOD-sp4) 60.1 ml EDV(sp4-el) 62.8 ml LVAs ap4 13.0 cm\S\2 LVLs ap4 5.3 cm ESV(MOD-sp4) 27.7 ml ESV(sp4-el) 26.8 ml EF(MOD-sp4) 53.9 % EF(sp4-el) 57.4 % LVAd ap2 19.5 cm\S\2 LVLd ap2 6.7 cm EDV(MOD-sp2) 49.2 ml EDV(sp2-el) 48.3 ml LVAs ap2 12.4 cm\S\2 LVLs ap2 5.8 cm ESV(MOD-sp2) 23.0 ml ESV(sp2-el) 22.4 ml EF(MOD-sp2) 53.2 % EF(sp2-el) 53.6 % LVLd %diff 9.6 % EDV(MOD-bp) 55.7 ml LVLs %diff 8.7 % ESV(MOD-bp) 26.8 ml EF(MOD-bp) 52.0 % SV(MOD-sp4) 32.4 ml SI(MOD-sp4) 19.8 ml/m\S\2 SV(MOD-sp2) 26.2 ml SI(MOD-sp2) 16.0 ml/m\S\2 SV(MOD-bp) 29.0 ml SI(MOD-bp) 17.7 ml/m\S\2 SV(sp4-el) 36.1 ml SI(sp4-el) 22.0 ml/m\S\2 SV(sp2-el) 25.9 ml SI(sp2-el) 15.8 ml/m\S\2 Doppler Measurements and Calculations MV E max loli 94.9 cm/sec MV dec time 0.20 sec Ao V2 max 97.1 cm/sec Ao max PG 3.9 mmHg Ao max PG (full) 2.7 mmHg STANTON(V,A) 1.4 cm\S\2 STANTON(V,D) 1.4 cm\S\2 LV V1 max PG 1.2 mmHg LV V1 max 55.5 cm/sec PA V2 max 81.4 cm/sec PA max PG 2.7 mmHg TR max loli 144.1 cm/sec
[2017-05-16] MEDS: INSULIN ASPART 100 UNITS/ML 3 ML PEN SC SCH ×2 (16:15→20:20)
--- NOTE | 2017-05-16 16:23 | Cardiology Consultation ---
Cardiology Consultation Date of Service May 16, 2017. Cardiology Consultation Indication: Consultation for abnormal EKG History: This is an 86-year-old male patient who has had a complex recent medical history. Several weeks ago he fell out of bed and sustained a C2 odontoid fracture. This was treated at [facility] in [place] conservatively with a [place] collar. Unfortunately the patient developed a pneumonia during his hospital admission which may have been due to aspiration. In any case he had a prolonged hospital course. At one point he was offered a PEG tube but refused. He has been on thickened liquids with some noncompliance. He has been at [facility], it was noticed today that he was bit more unresponsive and he was noted to be hypoxic. He was brought to the emergency department where he was tachycardic and hypoxic until he was placed on oxygen. The suspicion is that he once again he aspirated. In the emergency department he was noted to have EKG changes and was seen by interventional cardiology who turned him down for emergent cath. He is not complaining of any chest pain. He is very confused and not a reliable historian. His presenting EKG is atrial fibrillation with left ventricular hypertrophy. His cardiac markers have been negative. His presenting BNP was 9800. He has no current complaints. Allergies: Nortriptyline Reported Home Medications Medications Dose Route/Sig Max Daily Dose Days Date Category Dose Instructions Milk Of Magnesia (Magnesium Hydroxide) 30 Ml Susp 30 Ml PO DAILY PRN 05/16/17 Reported Fleet Enema Six Pack (Sodium Phosphates) 1 Asha Asha 1 Dose RE DAILY PRN 05/16/17 Reported Duoneb (Ipratropium-Albuterol) 3 Ml Nebu 1 Treatment INH Q6H PRN 05/16/17 Reported Bisacodyl 10 Mg Sup 10 Mg RE DAILY PRN 05/16/17 Reported Mertens 5MG/325MG (Acetaminophen/Hydrocodone Bitart) Tab 1 Tablet PO Q6 PRN 05/16/17 Reported PRN PAIN Acetaminophen 160 Mg/5 Ml Radha 20.3 Ml PO Q6 PRN 05/16/17 Reported Ferrous Sulfate 325 Mg Tab 325 Mg PO BIDM 30 05/11/17 Rx Vitamin D 95909 Unit (Ergocalciferol) 50,000 Unit Cap 50,000 Interunit PO Q7D@1200 90 05/11/17 Rx Diltiazem Cd (Diltiazem HCl) 120 Mg Capcr 120 Mg PO QAM 30 05/10/17 Rx Nystatin Cream (Nystatin) 90 Appln/30 Gm Cr 0 EXT BID 05/01/17 Reported APPLY TO AFFECTED AREA- Penis BID Zofran (Ondansetron Hcl) 8 Mg Tab 8 Mg PO Q8 05/01/17 Reported Lopressor (Metoprolol Tartrate) 25 Mg Tab 25 Mg PO BID 05/01/17 Reported Novolog (Insulin Aspart) 100 Units/Ml Inj 8 Units SQ TIDM 05/01/17 Reported Kp Melatonin (Melatonin) 3 Mg Tab 3 Mg PO HS 05/01/17 Reported Lantus (Insulin Glargine) 100 Unit/Ml Inj 16 Units SC QPM 05/01/17 Reported Aspirin Ec (Aspirin) 81 Mg Tab 81 Mg PO QAM 04/02/17 Reported Stool Softener (Docusate Sodium) 100 Mg Cap 100 Mg PO BID 04/02/17 Reported Vitron-C (Iron-Vitamin C) 1 Tab Tab 1 Tab PO BID 04/02/17 Reported DOSE 65-125MG. Cymbalta (Duloxetine HCl) 30 Mg Cap 30 Mg PO QAM 30 04/02/17 Reported Problem List: Past paroxysmal and now probably chronic atrial fibrillation. 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 Moncada at [facility] as part of the Cor Valve Trial. Prior history of coronary bypass surgery 2002 at [facility] with saphenous vein graft to OM1 and OM2 and saphenous vein graft to right posterior descending coronary artery. Repeat cardiac catheterization in August 2010 with evidence of patent grafts with 100% occlusion of RCA and proximal circumflex. Carotid occlusive disease. Peripheral vascular disease. 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 Hypertension. Dyslipidemia. Stage III CKD Social history: Patient is a non-smoker Family medical history: Noncontributory Review of systems: Unobtainable except that the patient has been on thickened liquids due to aspiration. Vital Signs Past 12 Hours Date Time Temp Pulse Resp B/P (MAP) Pulse Ox O2 Delivery O2 Flow Rate FiO2 05/16/17 15:20 88 29 91/50 95 05/16/17 15:17 90 118/73 96 05/16/17 15:00 36.9 90 20 125/72 96 Nasal Cannula 3.0 05/16/17 14:16 90 24 118/73 96 Room Air 3.0 05/16/17 13:59 110 107/59 05/16/17 13:00 114 28 107/59 93 Nasal Cannula 2.0 05/16/17 12:48 103 24 106/68 94 Nasal Cannula 3.0 05/16/17 12:39 100 05/16/17 11:40 113 28 123/79 93 Nasal Cannula 3.0 05/16/17 10:46 109 26 122/89 93 Nasal Cannula 3.0 05/16/17 09:52 109 05/16/17 09:44 37.1 115 32 154/88 92 Nasal Cannula 3.0 05/16/17 09:44 87 Room Air 05/16/17 09:44 93 Nasal Cannula 3.0 05/16/17 09:44 93 Nasal Cannula 3.0 General Appearance: Confused, no acute distress Head: Normocephalic Atraumatic. Eyes: PERRLA, EOMI, conjunctiva and sclera clear Neck: Supple. No carotid bruits noted. No JVD. No HJD. Respiratory: Breath sounds clear to auscultation bilaterally. No w/r/r. Cardiovascular: Irreg rate and rhythm. S1 and S2 noted. No murmurs, rubs, gallops. PMI non displace. Abdomen: Normal bowel sounds, soft nontender. no abdominal bruits. Extremities: No edema, no clubbing or cyanosis. distal pulses 2/4 bilaterally. Neuro: No focal deficits. Psychiatric: Normal affect. Last 24 Hours Test 05/16/17 09:43 05/16/17 09:49 05/16/17 09:52 05/16/17 09:55 White Blood Count 13.35 K/uL Red Blood Count 4.08 M/uL Hemoglobin 12.1 g/dL Hematocrit 36.9 % Mean Corpuscular Volume 90.4 fL Mean Corpuscular Hemoglobin 29.7 pg Mean Corpuscular Hemoglobin Concent 32.8 g/dl Platelet Count 433 K/uL Mean Platelet Volume 8.9 fL Neutrophils (%) (Auto) 88.5 % Lymphocytes (%) (Auto) 6.1 % Monocytes (%) (Auto) 5.1 % Eosinophils (%) (Auto) 0.0 % Basophils (%) (Auto) 0.1 % Neutrophils # (Auto) 11.80 K/uL Lymphocytes # (Auto) 0.82 K/uL Monocytes # (Auto) 0.68 K/uL Eosinophils # (Auto) 0.00 K/uL Basophils # (Auto) 0.02 K/uL RDW Standard Deviation 48.0 fL RDW Coefficient of Variation 14.7 % Immature Granulocyte % (Auto) 0.2 % Immature Granulocyte # (Auto) 0.03 K/uL Prothrombin Time 11.6 SECONDS Prothromb Time International Ratio 1.1 Activated Partial Thromboplast Time 25.4 SECONDS Partial Thromboplastin Ratio 1.0 Sodium Level 132 mmol/L Potassium Level 4.4 mmol/L Chloride Level 98 mmol/L Carbon Dioxide Level 28 mmol/L Anion Gap 6.0 mmol/L 18.0 mmol/L Blood Urea Nitrogen 13 mg/dl Creatinine 0.84 mg/dl Est Creatinine Clear Calc Drug Dose 45.4 ml/min Estimated GFR () 90.6 Estimated GFR (Non- 78.2 BUN/Creatinine Ratio 15.9 Random Glucose 87 mg/dl Calcium Level 9.0 mg/dl Total Bilirubin 0.6 mg/dl Direct Bilirubin 0.2 mg/dl Aspartate Amino Transf (AST/SGOT) 19 U/L Alanine Aminotransferase (ALT/SGPT) 13 U/L Alkaline Phosphatase 89 U/L Troponin I 0.136 ng/ml Pro-B-Type Natriuretic Peptide 9775 pg/ml Total Protein 7.4 gm/dl Albumin 2.6 gm/dl Lipase 37 U/L Bedside Hemoglobin 12.9 g/dl Bedside Hematocrit 38 % Bedside Sodium 135 mEq/L Bedside Potassium 4.5 mEq/L Bedside Chloride 96 mEq/L Bedside Total CO2 27 mEq/l Bedside Blood Urea Nitrogen 13 mg/dl Bedside Creatinine 0.8 mg/dl Bedside Glucose (other) 90 mg/dl Bedside Ionized Calcium (Nithin) 1.15 mmol/l Bedside Troponin I 0.120 ng/ml Test 05/16/17 10:18 05/16/17 10:49 05/16/17 15:34 05/16/17 16:18 Venous Blood pH 7.42 Venous Blood Partial Pressure CO2 42 mmHg Venous Blood Partial Pressure O2 31 mmHg Venous Blood HCO3 27 mmol/L Venous Blood Oxygen Saturation < 60.0 % Venous Blood Base Excess 2.3 mEq/L Lactic Acid Level 1.9 mmol/L Influenza Type A Antigen Neg for Influ A Influenza Type B Antigen Neg for Influ B Troponin I 0.123 ng/ml Bedside Glucose 119 mg/dl Impression: 1. Chronic aspiration 2. Hypoxia due to aspiration 3. Chronic atrial fibrillation 4. EKG changes most likely related to LVH and/or hypoxia Recommendations: Currently the patient is clinically stable and his heart rates have improved now that he is receiving oxygen. There is consideration for him being sent to [place] where he will have a PEG tube placed at a tertiary care center due to his high risk. His echocardiogram was a poor study but it shows normal LV function and no significant valvular pathology. His prosthetic valve appears to be functioning well. We will follow along with you during his hospital stay.
--- NOTE | 2017-05-16 17:46 | EMERGENCY ROOM VISIT NOTE ---
History Report prepared by Toro: Lloyd Flaherty Under the Supervision of: Dr. Edwadr Toro M.D. First contact with patient: 09:45 Stated Complaint: RESPIRATORY History of Present Illness This HPI is significantly limited secondary to the mental status of the patient. The patient is an 86 year old male with a past medical history of atrial fibrillation, PVD, senile osteoporosis, aortic valve replacement, and delirium secondary to multiple etiologies who presents to the Emergency Room with complaints of worsening dyspnea. Documentation from the patient's fdc state that he has been exhibiting worsening dyspnea, a persistent cough with brown sputum, and an Oxygen Saturation in the mid-80's. He was recently admitted to that facility for aspiration pneumonia. The patient is also being treated for an odontoid fracture. Source of History: fdc notes History Limited By: AMS (BASELINE Mental Status) Position: chest Quality: other (Dyspnea) Timing: worsening Associated Symptoms: + cough Review of Systems ROS Limited secondary to mental status. Past Medical & Surgical Medical Problems: (1) Anemia due to chronic kidney disease (2) Atrial fibrillation (3) CKD (chronic kidney disease) (4) Coronary artery disease (5) Diabetic neuropathy (6) DM type 2 (diabetes mellitus, type 2) (7) Dyslipidemia (8) Hypertension (9) Odontoid fracture (10) PVD (peripheral vascular disease) Surgical Problems: (1) History of aortic valve replacement (2) History of appendectomy (3) History of cataract surgery (4) History of right hip replacement (5) S/P CABG x 3 Family History FH: colon cancer Social History Smoking Status: Former Smoker Alcohol Use: none Drug Use: none Marital Status: Housing Status: lives with significant other Occupation Status: retired Current/Historical Medications Scheduled Aspirin (Aspirin Ec), 81 MG PO QAM Diltiazem HCl (Diltiazem Cd), 120 MG PO QAM Docusate Sodium (Stool Softener), 100 MG PO BID Duloxetine HCl (Cymbalta), 30 MG PO QAM Ergocalciferol (Vitamin D 29742 Unit), 50,000 INTERUNIT PO Q7D@1200 Ferrous Sulfate (Ferrous Sulfate), 325 MG PO BIDM Insulin Aspart (Novolog), 8 UNITS SQ TIDM Insulin Glargine (Lantus), 16 UNITS SC QPM Iron-Vitamin C (Vitron-C), 1 TAB PO BID Melatonin (Kp Melatonin), 3 MG PO HS Metoprolol Tartrate (Lopressor), 25 MG PO BID Nystatin (Nystatin Cream), 0 EXT BID Ondansetron Hcl (Zofran), 8 MG PO Q8 Scheduled PRN Acetaminophen (Acetaminophen), 20.3 ML PO Q6 PRN for Pain Bisacodyl (Bisacodyl), 10 MG RE DAILY PRN for Constipation Hydrocodone/Acetaminophen 5MG/325MG ([place] 5MG/325MG), 1 TABLET PO Q6 PRN for Pain Ipratropium-Albuterol (Duoneb), 1 TREATMENT INH Q6H PRN for Shortness of Breath Magnesium Hydroxide (Milk Of Magnesia), 30 ML PO DAILY PRN for Constipation Sodium Phosphates (Fleet Enema Six Pack), 1 DOSE RE DAILY PRN for Constipation Allergies Coded Allergies: Nortriptyline (Verified Allergy, Severe, CHEST PAIN-"BURNING FROM MID CHEST TO THROAT"., 05/16/17) Physical Exam Vital Signs Date Time Temp Pulse Resp B/P (MAP) Pulse Ox O2 Delivery O2 Flow Rate FiO2 05/16/17 11:40 113 28 123/79 93 Nasal Cannula 3.0 05/16/17 10:46 109 26 122/89 93 Nasal Cannula 3.0 05/16/17 09:52 109 05/16/17 09:44 37.1 115 32 154/88 92 Nasal Cannula 3.0 05/16/17 09:44 87 Room Air 05/16/17 09:44 93 Nasal Cannula 3.0 05/16/17 09:44 93 Nasal Cannula 3.0 Physical Exam Physical Exam GENERAL: Alert and oriented x2. He is ill appearing. HENT: Exam performed. Head: Normocephalic and atraumatic. Right Ear: External ear normal. No mastoid tenderness. Left Ear: External ear normal. No mastoid tenderness. EYES: Conjunctivae and EOM are normal. Pupils are equal, round, and reactive to light. Right eye exhibits no discharge. Left eye exhibits no discharge. No scleral icterus. ____ NECK: in C-collar. CV: Tachycardic and irregular, normal heart sounds and intact distal pulses. There is no peripheral edema. Palpable radial pulses bue. ____ PULM/CHEST: Rhonchi bilaterally. Chest Wall: He exhibits no tenderness. ____ ABD: The abdomen is soft. No tenderness MUSC/SKEL: No tenderness or deformity. NEURO: He is alert and oriented x2. Motor and sensation is grossly intact. SKIN: Skin is warm and dry. He is not diaphoretic. ____ Medical Decision & Procedures ER Provider Diagnostic Interpretation: Radiology results as stated below per my review and radiologist interpretation: SINGLE VIEW CHEST CLINICAL HISTORY: Atypical chest pain. FINDINGS: An AP, portable, upright chest radiograph is compared to chest x-ray and chest CT dated 05/01/2017. The examination is degraded by portable technique and patient rotation. The patient is status post midline sternotomy. The heart is enlarged and there is atherosclerotic calcification of the thoracic aorta. The pulmonary vasculature is noncongested. Emphysema and chronic interstitial thickening are similar to previous. There is patchy airspace consolidation at the right lung base with elevation of right hemidiaphragm. Mild patchy consolidative change is present at the left lung base. No large pleural effusion or pneumothorax is seen. The skeletal structures are osteopenic. The bony thorax is grossly intact. IMPRESSION: 1. Cardiomegaly and emphysema. 2. There is bibasilar airspace consolidation, right greater than left. The appearance is typical for pneumonia/aspiration pneumonitis. Clinical correlation will be required and radiographic follow-up to resolution is recommended. Electronically signed by: Suleiman Hernandez M.D. 05/16/2017 10:32 AM Dictated Date/Time: 05/16/2017 10:31 AM Laboratory Results 05/16/17 09:43 Red Blood Count 4.08, Mean Corpuscular Volume 90.4, Mean Corpuscular Hemoglobin 29.7, Mean Corpuscular Hemoglobin Concent 32.8, Mean Platelet Volume 8.9, Neutrophils (%) (Auto) 88.5, Lymphocytes (%) (Auto) 6.1, Monocytes (%) (Auto) 5.1, Eosinophils (%) (Auto) 0.0, Basophils (%) (Auto) 0.1, Neutrophils # (Auto) 11.80, Lymphocytes # (Auto) 0.82, Monocytes # (Auto) 0.68, Eosinophils # (Auto) 0.00, Basophils # (Auto) 0.02 05/16/17 09:43 Test 05/16/17 09:43 05/16/17 09:49 05/16/17 09:52 05/16/17 09:55 White Blood Count 13.35 K/uL (4.8-10.8) Red Blood Count 4.08 M/uL (4.7-6.1) Hemoglobin 12.1 g/dL (14.0-18.0) Hematocrit 36.9 % (42-52) Mean Corpuscular Volume 90.4 fL (80-100) Mean Corpuscular Hemoglobin 29.7 pg (25-34) Mean Corpuscular Hemoglobin Concent 32.8 g/dl (32-36) Platelet Count 433 K/uL (130-400) Mean Platelet Volume 8.9 fL (7.4-10.4) Neutrophils (%) (Auto) 88.5 % Lymphocytes (%) (Auto) 6.1 % Monocytes (%) (Auto) 5.1 % Eosinophils (%) (Auto) 0.0 % Basophils (%) (Auto) 0.1 % Neutrophils # (Auto) 11.80 K/uL (1.4-6.5) Lymphocytes # (Auto) 0.82 K/uL (1.2-3.4) Monocytes # (Auto) 0.68 K/uL (0.11-0.59) Eosinophils # (Auto) 0.00 K/uL (0-0.5) Basophils # (Auto) 0.02 K/uL (0-0.2) RDW Standard Deviation 48.0 fL (36.4-46.3) RDW Coefficient of Variation 14.7 % (11.5-14.5) Immature Granulocyte % (Auto) 0.2 % Immature Granulocyte # (Auto) 0.03 K/uL (0.00-0.02) Prothrombin Time 11.6 SECONDS (9.0-12.0) Prothromb Time International Ratio 1.1 (0.9-1.1) Activated Partial Thromboplast Time 25.4 SECONDS (21.0-31.0) Partial Thromboplastin Ratio 1.0 Est Creatinine Clear Calc Drug Dose 45.4 ml/min Estimated GFR () 90.6 Estimated GFR (Non- 78.2 BUN/Creatinine Ratio 15.9 (10-20) Calcium Level 9.0 mg/dl (8.5-10.1) Total Bilirubin 0.6 mg/dl (0.2-1) Direct Bilirubin 0.2 mg/dl (0-0.2) Aspartate Amino Transf (AST/SGOT) 19 U/L (15-37) Alanine Aminotransferase (ALT/SGPT) 13 U/L (12-78) Alkaline Phosphatase 89 U/L (45-117) Pro-B-Type Natriuretic Peptide 9775 pg/ml (0-1800) Total Protein 7.4 gm/dl (6.4-8.2) Albumin 2.6 gm/dl (3.4-5.0) Lipase 37 U/L (73-393) Bedside Hemoglobin 12.9 g/dl (14.0-18.0) Bedside Hematocrit 38 % (42-52) Bedside Sodium 135 mEq/L (135-144) Bedside Potassium 4.5 mEq/L (3.3-5.0) Bedside Chloride 96 mEq/L (101-112) Bedside Total CO2 27 mEq/l (24-31) Anion Gap 18.0 mmol/L (16-25) Bedside Blood Urea Nitrogen 13 mg/dl (7-18) Bedside Creatinine 0.8 mg/dl (0.6-1.3) Bedside Glucose (other) 90 mg/dl (70-99) Bedside Ionized Calcium (Nithin) 1.15 mmol/l (1.12-1.32) Bedside Troponin I 0.120 ng/ml (0-0.045) Test 05/16/17 10:18 05/16/17 10:49 Venous Blood pH 7.42 (7.36-7.41) Venous Blood Partial Pressure CO2 42 mmHg (38.0-50.0) Venous Blood Partial Pressure O2 31 mmHg Venous Blood HCO3 27 mmol/L Venous Blood Oxygen Saturation < 60.0 % Venous Blood Base Excess 2.3 mEq/L Lactic Acid Level 1.9 mmol/L (0.4-2.0) Influenza Type A Antigen Neg for Influ A (NEG) Influenza Type B Antigen Neg for Influ B (NEG) Laboratory results reviewed by me Medications Administered Medications (Trade) Dose Ordered Sig/Rc Route Start Time Stop Time Status Last Admin Dose Admin Piperacillin Sod/ Tazobactam Sod (Zosyn Iv) 4.5 gm NOW STAT IV 05/16/17 10:32 05/16/17 10:34 DC 05/16/17 10:44 4.5 GM Vancomycin HCl (Vancomycin 1gm Ed/Asu Omnicell) 1 gm NOW STAT IV 05/16/17 10:32 05/16/17 10:34 DC 05/16/17 11:50 1 GM Sodium Chloride 1,000 ml @ 100 mls/hr Q10H STAT IV 05/16/17 10:33 05/16/17 15:10 DC 05/16/17 10:45 100 MLS/HR ECG Per My Interpretation Indication: SOB/dyspnea Rate (beats per minute): 110 Rhythm: atrial fibrillation Findings: other (QRS WNL, QTC is 492, Biphasic T-waves in V3/V4. EKG limited secondary to artifact and pt motion. Computer is calling acute STEMI) Change: Initial EKG at 0938 Repeat EKG at 0944 shows; Atrial Fibrillation at 121 bpm, QRS and QTC WNL, Biphasic t-waves in V2/V3 ED Course 0940: The patient was evaluated in room B4B. A complete history and physical exam was performed. Patient was immediately seen on arrival in the emergency department. Patient merely put on cardiac tech, continuous pulse oximeter, pulse ox on room air was in the low to mid 80s, started on oxygen immediately, IV access obtained. EKGs done at 938 showed atrial fibrillation with heart rate of 110. QRS within normal limits. QTC elevated at 492. 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 Repeat EKG done at 944 shows atrial fibrillation with a rate of 121. QRS and QTc intervals within normal limits. 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 0956: I discussed the case with Dr. Villanueva - Interventional Cardiology. I discussed the EKG findings with him, and informed him that the patient is unable to express if he is having any acute chest pain. Dr. Villanueva suggests to control the rate and repeat EKGs, he does not advise me to activate the catheterization lab. 1015: Ordered Lopressor 2.5 mg IV 1017: Dr. Villanueva evaluated the patient at bedside at this time. He reviewed the EKGs with me once more. He states to not activate the Circular Stuffer. Control rate with Lopressor 2.5 mg IV. No Heparin at this time. 1024: Ordered Diltiazem HCl 1 IV. 1027: Cardizem and Lopressor were held because the pt HR normalizes when he is resting. Bedside Chest X-ray shows significant pneumonia on the right lung. Patient's A-fib RVR thought to be being exacerbated by the pneumonia and hypoxia , will begin fluids and IV antibiotics for HCAP 1032: Ordered Vancomycin HCl 1 gm IV, Zosyn 4.5 gm IV. 1033: Ordered Sodium Chloride 1000 mL @ 100 mL/hr IV. 1143: Labs show a leukocytosis of 13.35. Blood gas within normal limits. Troponin elevated at 0.136. ProBNP elevated at 9775. Flu negative. I discussed the case with Liliana Clark PA-C. She will evaluate the patient for further treatment. Medical Decision 0940: The patient was evaluated in room B4B. A complete history and physical exam was performed. Patient was immediately seen on arrival in the emergency department. Patient merely put on cardiac tech, continuous pulse oximeter, pulse ox on room air was in the low to mid 80s, started on oxygen immediately, IV access obtained. EKGs done at 938 showed atrial fibrillation with heart rate of 110. QRS within normal limits. QTC elevated at 492. 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 Repeat EKG done at 944 shows atrial fibrillation with a rate of 121. QRS and QTc intervals within normal limits. 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 0956: I discussed the case with Dr. Villanueva - Interventional Cardiology. I discussed the EKG findings with him, and informed him that the patient is unable to express if he is having any acute chest pain. Dr. Villanueva suggests to control the rate and repeat EKGs, he does not advise me to activate the catheterization lab. 1015: Ordered Lopressor 2.5 mg IV 1017: Dr. Villanueva evaluated the patient at bedside at this time. He reviewed the EKGs with me once more. He states to not activate the Circular Stuffer. Control rate with Lopressor 2.5 mg IV. No Heparin at this time. 1024: Ordered Diltiazem HCl 1 IV. 1027: Cardizem and Lopressor were held because the pt HR normalizes when he is resting. Bedside Chest X-ray shows significant pneumonia on the right lung. Patient's A-fib RVR thought to be being exacerbated by the pneumonia and hypoxia , will begin fluids and IV antibiotics for HCAP 1032: Ordered Vancomycin HCl 1 gm IV, Zosyn 4.5 gm IV. 1033: Ordered Sodium Chloride 1000 mL @ 100 mL/hr IV. 1143: Labs show a leukocytosis of 13.35. Blood gas within normal limits. Troponin elevated at 0.136. ProBNP elevated at 9775. Flu negative. I discussed the case with Liliana Clark PA-C. She will evaluate the patient for further treatment. Medication Reconcilliation Current Medication List: was personally reviewed by me Blood Pressure Screening Patient's blood pressure: Normal blood pressure Consults Time Called: 951 Consulting Physician: Dr. Villanueva - Interventional Cardiology Returned Call: [phone] I discussed the case with Dr. Villanueva - Interventional Cardiology. I discussed the EKG findings with him, and informed him that the patient is unable to express if he is having any acute chest pain. Dr. Villanueva suggests to control the rate and repeat EKGs, he does not advise me to activate the catheterization lab. No Heparin at this time. Additional Consults: Time Called: 1140 Consulted Physician: Liliana Clark PA-C Returned Call: [phone] Additional Comments: I discussed the case with Liliana Clark PA-C. She will evaluate the patient for further treatment. Impression Primary Impression: Hypoxia Additional Impressions: Pneumonia Elevated troponin Critical Care I have personally spent greater than 72 minutes of critical care time in the direct management of this patient. This includes bedside care, interpretation of diagnostic studies, and testing, discussion with consultants, patient, and family members, and other required patient management activities. This 72 minutes is in excess of all separately billable procedures. Scribe Attestation The scribe's documentation has been prepared under my direction and personally reviewed by me in its entirety. I confirm that the note above accurately reflects all work, treatment, procedures, and medical decision making performed by me. The chart was completed utilizing [employer] Speech voice recognition software. Grammatical errors, random word insertions, pronoun errors, and incomplete sentences are an occasional consequence of this system due to software limitations, ambient noise, and hardware issues. Any formal questions or concerns about the content, text, or information contained within the body of this dictation should be directly addressed to the physician for clarification. Departure Information Dispostion Being Evaluated By Hospitalist Referrals Pilgram, Kashif A.,M.D. (PCP) Problem Qualifiers Additional Impressions: Pneumonia Pneumonia type: due to unspecified organism Laterality: unspecified laterality Lung location: unspecified part of lung Qualified Codes: J18.9 - Pneumonia, unspecified organism
[2017-05-16 19:20] VITALS: BP 116/70; PULSE 110; TEMP 36.8; O2SAT 93
[2017-05-16] MEDS: INSULIN GLARGINE SOLOSTAR 100 UNITS/ML 3 ML PEN SC SCH (20:22)
[2017-05-16] MEDS: METOPROLOL TARTRATE 1 MG/ML VIAL IV. SCH (20:24)
[2017-05-16] MEDS: HEPARIN SOD 5000 UNIT/0.5 ML CARP SQ SCH (20:27)
[2017-05-17] VITALS (8 sets, daily range): BP systolic 120–149; BP diastolic 70–85; PULSE 93–115; TEMP 36.3–36.8; O2SAT 90–99; Ht 170.2 cm; Wt 48.4 kg
[2017-05-17] MEDS ORDERED: VANCOMYCIN IV 750 MG in SODIUM CHLORIDE 0.9% 250ML 250 ML IV SCH ×2
[2017-05-17] MEDS: PIPERACILL/TAZOBAC IV 3.375 GM in DEXTROSE 5% 100ML 100 ML IV SCH ×4 (01:01→23:34)
[2017-05-17] MEDS: METOPROLOL TARTRATE 1 MG/ML VIAL IV. SCH ×4 (02:00→20:49)
[2017-05-17] MEDS: HEPARIN SOD 5000 UNIT/0.5 ML CARP SQ SCH ×3 (05:54→22:32)
[2017-05-17 07:02] LABS: HEMATOCRIT 34.7 % (42-52); HEMOGLOBIN 11.2 g/dL (14.0-18.0); MEAN CELL VOLUME 91.3 fL (80-100); MEAN CORPUSCULAR HEMOGLOBIN 29.5 pg (25-34); MEAN CORPUSCULAR HGB CONC 32.3 g/dl (32-36); MEAN PLATELET VOLUME 8.9 fL (7.4-10.4); PLATELET COUNT 430 K/uL (130-400); RED CELL DISTRIBUTION WIDTH CV 14.9 % (11.5-14.5); RED CELL DISTRIBUTION WIDTH SD 48.6 fL (36.4-46.3); WHITE BLOOD COUNT 10.53 K/uL (4.8-10.8)
[2017-05-17 07:35] LABS: CALCIUM 8.8 mg/dl (8.5-10.1); CREATININE 1.03 mg/dl (0.60-1.40); POTASSIUM 4.8 mmol/L (3.5-5.1)
[2017-05-17] MEDS: ASPIRIN 300 MG SUPP PR SCH (08:04)
[2017-05-17] MEDS: THIAMINE HCL INJ 100 MG in SYRINGE 9 ML IV SCH (08:06)
[2017-05-17] MEDS: INSULIN ASPART 100 UNITS/ML 3 ML PEN SC SCH ×4 (08:11→20:53)
[2017-05-17] MEDS: INSULIN GLARGINE SOLOSTAR 100 UNITS/ML 3 ML PEN SC SCH ×2 (08:11→20:52)
[2017-05-17] MEDS: SODIUM CHLORIDE 0.9% 1000ML 1,000 ML IV SCH ×2 (08:18→14:39)
--- NOTE | 2017-05-17 12:37 | Progress Note ---
Subjective Date of Service: May 17, 2017. Subjective Pt evaluation today including: conversation w/ patient, physical exam, lab review, review of studies, review of inpatient medication list Saw/examined the patient in room 210 Currently with a hard cervical collar on c/o headache +productive cough persists Problem List Medical Problems: (1) Dens fracture Status: Acute (2) Elevated troponin Status: Acute (3) Hypoxia Status: Acute (4) Pneumonia Status: Acute (5) Syncope Status: Acute Review of Systems Constitutional: + weakness Respiratory: + cough, + sputum, + shortness of breath, No wheezing, No dyspnea on exertion, No dyspnea at rest, No hemoptysis Cardiac: No chest pain, No edema, No palpitations Medications Current Inpatient Medications Medications (Trade) Dose Ordered Sig/Rc Route Start Time Stop Time Status Last Admin Dose Admin Heparin Sodium (Porcine) (Heparin Sq 5000 Unit/0.5ml) 5,000 unit Q8 SQ 05/16/17 22:00 06/15/17 21:59 05/17/17 05:54 5,000 UNIT Acetaminophen (Tylenol Tab) 650 mg Q4H PRN PO 05/16/17 12:30 06/15/17 12:29 Ondansetron HCl (Zofran Inj) 4 mg Q6H PRN IV 05/16/17 12:30 06/15/17 12:29 Nitroglycerin (Nitrostat Tab) 0.4 mg UD PRN SL 05/16/17 12:30 06/15/17 12:29 Metoprolol Tartrate (Lopressor Iv) 5 mg Q6H IV. 05/16/17 20:00 06/15/17 19:59 05/17/17 08:03 5 MG Miscellaneous Information (Consult) 1 ea UD PRN N/A 05/16/17 13:42 06/15/17 13:41 Miscellaneous Information (Consult Glycemic Management Pharmacy) 1 ea UD PRN N/A 05/16/17 13:41 06/15/17 13:40 Sodium Chloride 1,000 ml @ 80 mls/hr [id number] IV 05/16/17 13:15 06/15/17 13:14 05/17/17 08:18 80 MLS/HR Albuterol/ Ipratropium (Duoneb) 3 ml Q4R PRN INH 05/16/17 13:15 06/15/17 13:14 Miscellaneous Information (Consult) 1 ea UD PRN N/A 05/16/17 13:45 06/15/17 13:44 Aspirin (Aspirin Supp) 300 mg DAILY CA 05/17/17 09:00 06/16/17 08:59 Insulin Glargine (Lantus Solostar Pen) IF PATIENT NPO, C... Q12 SC 05/16/17 21:00 06/15/17 20:59 05/17/17 08:11 5 UNITS Insulin Aspart (novoLOG ASPART) SLIDING SCALE If C... ACHS SC 05/16/17 16:00 06/15/17 15:59 05/17/17 08:11 1 UNITS Glucose (Glucose 40% Gel) 15-30 GRAMS 15 GRAMS... UD PRN PO 05/16/17 14:30 06/15/17 14:29 Glucose (Glucose Chew Tab) 4-8 Tablets 4 Tabl... UD PRN PO 05/16/17 14:30 06/15/17 14:29 Dextrose (Dextrose 50% 50ML Syringe) 25-50ML OF 50% DW IV FOR... UD PRN IV 05/16/17 14:30 06/15/17 14:29 Glucagon (Glucagon Inj) 1 mg UD PRN SQ 05/16/17 14:30 06/15/17 14:29 Piperacillin Sod/ Tazobactam Sod 3.375 gm/Dextrose 115 ml @ 28.75 mls/ hr Q8H IV 05/16/17 16:00 05/23/17 15:59 05/17/17 08:13 28.75 MLS/HR Vancomycin HCl 750 mg/Sodium Chloride 265 ml @ 125 mls/hr Q18H IV 05/17/17 00:00 05/24/17 00:00 05/17/17 01:01 125 MLS/HR Thiamine HCl 100 mg/Syringe 10 ml @ 2 mls/min DAILY@0900 IV 05/17/17 09:00 06/16/17 08:59 05/17/17 08:06 2 MLS/MIN Objective Vital Signs Date Time Temp Pulse Resp B/P (MAP) Pulse Ox O2 Delivery O2 Flow Rate FiO2 05/17/17 08:25 36.5 100 23 123/74 (90) 95 Room Air 05/17/17 08:03 117 123/74 05/17/17 08:00 Nasal Cannula 3.0 05/17/17 04:12 36.8 105 22 133/82 (99) 98 Nasal Cannula 3.0 05/17/17 04:00 Nasal Cannula 3.0 05/17/17 02:00 124 148/90 05/17/17 00:09 36.6 109 16 120/70 (87) 95 Nasal Cannula 3.0 05/17/17 00:01 Nasal Cannula 3.0 05/16/17 20:24 108 101/63 05/16/17 20:00 Nasal Cannula 2.0 05/16/17 19:20 36.8 110 19 116/70 (85) 93 Nasal Cannula 2.0 05/16/17 16:00 Nasal Cannula 2.0 05/16/17 15:20 88 29 91/50 95 05/16/17 15:17 90 118/73 96 05/16/17 15:00 36.9 90 20 125/72 96 Nasal Cannula 3.0 05/16/17 14:16 90 24 118/73 96 Room Air 3.0 05/16/17 13:59 110 107/59 05/16/17 13:00 114 28 107/59 93 Nasal Cannula 2.0 05/16/17 12:48 103 24 106/68 94 Nasal Cannula 3.0 05/16/17 12:39 100 Physical Exam General Appearance: + cachetic, + thin, + pertinent finding (+weak/tired/ chronically ill appearing, +cervical collar on; +mild distress secondary to headache and cough) Respiratory/Chest: no respiratory distress, no accessory muscle use, + decreased breath sounds, + crackles, + rhonchi Cardiovascular: no edema, + irregularly irregular Extremities: normal inspection, no pedal edema Neurologic/Psychiatric: no motor/sensory deficits, alert Laboratory Results Last 24 Hours Test 05/16/17 15:34 05/16/17 16:18 05/16/17 20:16 05/16/17 20:47 Troponin I 0.123 ng/ml 0.109 ng/ml Bedside Glucose 119 mg/dl 148 mg/dl Test 05/17/17 06:30 05/17/17 07:08 05/17/17 11:19 White Blood Count 10.53 K/uL Red Blood Count 3.80 M/uL Hemoglobin 11.2 g/dL Hematocrit 34.7 % Mean Corpuscular Volume 91.3 fL Mean Corpuscular Hemoglobin 29.5 pg Mean Corpuscular Hemoglobin Concent 32.3 g/dl RDW Standard Deviation 48.6 fL RDW Coefficient of Variation 14.9 % Platelet Count 430 K/uL Mean Platelet Volume 8.9 fL Sodium Level 134 mmol/L Potassium Level 4.8 mmol/L Chloride Level 99 mmol/L Carbon Dioxide Level 22 mmol/L Anion Gap 12.0 mmol/L Blood Urea Nitrogen 24 mg/dl Creatinine 1.03 mg/dl Est Creatinine Clear Calc Drug Dose 34.4 ml/min Estimated GFR () 74.8 Estimated GFR (Non- 64.6 BUN/Creatinine Ratio 23.2 Random Glucose 160 mg/dl Calcium Level 8.8 mg/dl Phosphorus Level 4.0 mg/dl Magnesium Level 2.0 mg/dl Bedside Glucose 170 mg/dl 146 mg/dl Assessment and Plan This is an 86 year old male with a past medical history of recurrent dysphagia and aspiration pneumonia, type 2 odontoid fracture in a cervical collar, CAD s/ p CABG, atrial fibrillation, DM2, HLD, CKD stage 2, anemia of chronic disease, PVD, baseline dementia, hx. of aortic valve replacement - presents from [facility] due to aspiration/dysphagia issues and found to have likely aspiration pneumonia with subsequent atrial fibrillation with RVR and also found to have a likely Type 2 AL. Acute Hypoxic Respiratory Failure and Sepsis secondary to Recurrent Aspiration Pneumonia Chronic Dysphagia - patient with chronic dysphagia issues, has had recurrent aspiration pneumonia - was at [facility], became tachypneic, tachycardic and hypoxic - presented here and subsequently found to have aspiration pneumonia - started on Vanco + Zosyn; will d/c Vanc at this time, continue Zosyn for aspiration - patient has had chronic dysphagia issues; was on mechanical soft and then pureed diet - cervical collar is making it more difficult for the patient; as per family member, he is using straws, which he likely should not do - will consult speech therapy; will need thickened liquids with possible pureed diet - previous discussed PEG tube; he did not want it during previous admission - I spoke to the patient today (05/17) and still feels he does not want it - will consult palliative care - patient should be made hospice at this time, if agreeable - if PEG tube needs to be placed, will need to transfer to [place] for interventional radiology Type 2 AL Hx. of CAD - patient with elevated troponin levels - likely due to increased demand from above as well as tachycardia from A. Fib - resting echo - not a good study, replacement valve functioning well - not on IV heparin, will treat underlying infection, hypoxia and tachycardia - continue aspirin suppository and IV Lopressor A. Fib with RVR - intermittently rate controlled - on IV b-gustavo; not on PO medications; not on a Cardizem drip DM2 - glycemic control pharmacy consulted DVT ppx - subq heparin FULL CODE
--- NOTE | 2017-05-17 14:18 | DIAGNOSTIC IMAGING REPORT ---
MODIFIED BARIUM SWALLOW CLINICAL HISTORY: Aspiration pneumonia. COMPARISON STUDY: No previous studies for comparison. Fluoroscopy time: 1.9 minutes. FINDINGS: Premature spillage was noted. There was delayed initiation of swallowing mechanism with multiple episodes of silent tracheal aspiration within liquids, nectar thick liquids and pudding consistencies. Note was made of significant residuals within the piriform sinuses and the vallecula. Laryngeal elevation and epiglottic inversion were diminished. IMPRESSION: 1. Multiple episodes of silent tracheal aspiration with thin liquids, nectar thick liquids and pudding consistencies. 2. Delayed initiation of the swallowing mechanism with diminished epiglottic inversion and laryngeal elevation. Significant residuals within the piriform sinuses and vallecula. 3. Full recommendations by speech pathology to follow. Electronically signed by: Milton Starks M.D. 05/17/2017 2:16 PM Dictated Date/Time: 05/17/2017 2:15 PM
[2017-05-17] MEDS ORDERED: FLUCONAZOLE / NSS 200 MG in PREMIXED NSS 100 ML IV ONE (15:45)
--- NOTE | 2017-05-17 18:32 | Palliative Care Consultation ---
Consultation Date of Consultation: May 17, 2017. Requesting Physician: Dr Oliver Attending Physician: Dr Oliver Reason for Consultation: To discuss goals of care, and possible PEG tube placement History of Present Illness Patient is an 86-year-old male with a past medical history significant for a recent C2/odontoid fracture, recent hospitalization for aspiration pneumonia and refusal of G-tube at that time. Patient presents again with evidence of aspiration pneumonia with increase shortness of breath and cough with hypoxia, chest x-ray with bilateral basilar consolidation right greater than left. History very limited by patient's mental status, patient is showing signs of delirium and that he stated there was a bunch of puppies on the ceiling. Patient does not recall where he is, what brought him to the hospital, or previous conversations about PEG tube. Spoke with patient's son, Rohan, he plans to come in later this evening to discuss a feeding tube with the patient. Son reports that there is another son age 64 but the patient wanted a feeding tube placed for him. Son also reports that this confusion is new for the patient, review of medications does not reveal any cause of his confusion other than his underlying lung disease. Past Medical/Surgical History Medical History: Odontoid fracture, anemia, chronic kidney disease, CAD-status post CABG, DM with neuropathy, HLD, HTN, AVR Surgical History: AVR, CABG' 03, appendectomy, cataract, right hip surgery Social History Smoking Status: Former Smoker History of Alcohol Use: No Drug Use: none Marital Status: Housing Status: snf (With his ) Occupation Status: retired Review of Systems Constitutional: No fever Respiratory: + cough, + sputum Cardiac: No chest pain Abdomen: No pain, No nausea Male : No dysuria Neurologic: + memory loss, + weakness Psychiatric: No anxiety Endo: + fatigue Review of systems performed, reliability is questionable given patient's delirium and memory loss Allergies Coded Allergies: Nortriptyline (Verified Allergy, Severe, CHEST PAIN-"BURNING FROM MID CHEST TO THROAT"., 05/16/17) Medications Current Inpatient Medications Medications (Trade) Dose Ordered Sig/Rc Route Start Time Stop Time Status Last Admin Dose Admin Heparin Sodium (Porcine) (Heparin Sq 5000 Unit/0.5ml) 5,000 unit Q8 SQ 05/16/17 22:00 06/15/17 21:59 05/17/17 14:31 5,000 UNIT Acetaminophen (Tylenol Tab) 650 mg Q4H PRN PO 05/16/17 12:30 06/15/17 12:29 Ondansetron HCl (Zofran Inj) 4 mg Q6H PRN IV 05/16/17 12:30 06/15/17 12:29 Nitroglycerin (Nitrostat Tab) 0.4 mg UD PRN SL 05/16/17 12:30 06/15/17 12:29 Metoprolol Tartrate (Lopressor Iv) 5 mg Q6H IV. 05/16/17 20:00 06/15/17 19:59 05/17/17 14:37 5 MG Miscellaneous Information (Consult Glycemic Management Pharmacy) 1 ea UD PRN N/A 05/16/17 13:41 06/15/17 13:40 Sodium Chloride 1,000 ml @ 80 mls/hr [id number] IV 05/16/17 13:15 06/15/17 13:14 05/17/17 14:39 80 MLS/HR Albuterol/ Ipratropium (Duoneb) 3 ml Q4R PRN INH 05/16/17 13:15 06/15/17 13:14 Miscellaneous Information (Consult) 1 ea UD PRN N/A 05/16/17 13:45 06/15/17 13:44 Aspirin (Aspirin Supp) 300 mg DAILY CA 05/17/17 09:00 06/16/17 08:59 Insulin Glargine (Lantus Solostar Pen) IF PATIENT NPO, C... Q12 SC 05/16/17 21:00 06/15/17 20:59 05/17/17 08:11 5 UNITS Insulin Aspart (novoLOG ASPART) SLIDING SCALE If C... ACHS SC 05/16/17 16:00 06/15/17 15:59 05/17/17 08:11 1 UNITS Glucose (Glucose 40% Gel) 15-30 GRAMS 15 GRAMS... UD PRN PO 05/16/17 14:30 06/15/17 14:29 Glucose (Glucose Chew Tab) 4-8 Tablets 4 Tabl... UD PRN PO 05/16/17 14:30 06/15/17 14:29 Dextrose (Dextrose 50% 50ML Syringe) 25-50ML OF 50% DW IV FOR... UD PRN IV 05/16/17 14:30 06/15/17 14:29 Glucagon (Glucagon Inj) 1 mg UD PRN SQ 05/16/17 14:30 06/15/17 14:29 Piperacillin Sod/ Tazobactam Sod 3.375 gm/Dextrose 115 ml @ 28.75 mls/ hr Q8H IV 05/16/17 16:00 05/23/17 15:59 05/17/17 17:44 28.75 MLS/HR Thiamine HCl 100 mg/Syringe 10 ml @ 2 mls/min DAILY@0900 IV 05/17/17 09:00 06/16/17 08:59 05/17/17 08:06 2 MLS/MIN Physical Exam Date Time Temp Pulse Resp B/P (MAP) Pulse Ox O2 Delivery O2 Flow Rate FiO2 05/17/17 16:01 36.8 93 20 149/76 (100) 96 Nasal Cannula 3.0 05/17/17 14:37 106 138/91 05/17/17 12:01 Nasal Cannula 3.0 05/17/17 11:58 36.3 115 22 138/74 (95) 90 Nasal Cannula 3.0 05/17/17 08:25 36.5 100 23 123/74 (90) 95 Room Air 05/17/17 08:03 117 123/74 05/17/17 08:00 Nasal Cannula 3.0 05/17/17 04:12 36.8 105 22 133/82 (99) 98 Nasal Cannula 3.0 05/17/17 04:00 Nasal Cannula 3.0 05/17/17 02:00 124 148/90 05/17/17 00:09 36.6 109 16 120/70 (87) 95 Nasal Cannula 3.0 05/17/17 00:01 Nasal Cannula 3.0 05/16/17 20:24 108 101/63 05/16/17 20:00 Nasal Cannula 2.0 05/16/17 19:20 36.8 110 19 116/70 (85) 93 Nasal Cannula 2.0 General Appearance: no apparent distress, + pertinent finding (Rigid c-collar in place) Eyes: EOMI ENT: hearing grossly normal Neck: + pertinent finding (Rigid c-collar in place) Respiratory: no respiratory distress, + decreased breath sounds Cardiovascular: no edema, + irregularly irregular Abdomen: non tender, soft Musculoskeletal: abnormal strength Neurologic/Psychiatric: alert, + disoriented (Did not know where he is, did not know events that brought him to the hospital, was seeing a group of puppies on the ceiling) Skin: warm/dry Laboratory Results Last 24 Hours Test 05/16/17 20:16 05/16/17 20:47 05/17/17 06:30 05/17/17 07:08 Bedside Glucose 148 mg/dl 170 mg/dl Troponin I 0.109 ng/ml White Blood Count 10.53 K/uL Red Blood Count 3.80 M/uL Hemoglobin 11.2 g/dL Hematocrit 34.7 % Mean Corpuscular Volume 91.3 fL Mean Corpuscular Hemoglobin 29.5 pg Mean Corpuscular Hemoglobin Concent 32.3 g/dl RDW Standard Deviation 48.6 fL RDW Coefficient of Variation 14.9 % Platelet Count 430 K/uL Mean Platelet Volume 8.9 fL Sodium Level 134 mmol/L Potassium Level 4.8 mmol/L Chloride Level 99 mmol/L Carbon Dioxide Level 22 mmol/L Anion Gap 12.0 mmol/L Blood Urea Nitrogen 24 mg/dl Creatinine 1.03 mg/dl Est Creatinine Clear Calc Drug Dose 34.4 ml/min Estimated GFR () 74.8 Estimated GFR (Non- 64.6 BUN/Creatinine Ratio 23.2 Random Glucose 160 mg/dl Calcium Level 8.8 mg/dl Phosphorus Level 4.0 mg/dl Magnesium Level 2.0 mg/dl Test 05/17/17 11:19 05/17/17 16:50 Bedside Glucose 146 mg/dl 149 mg/dl Assessment & Plan Palliative Performance Scale: 40 % (1) Aspiration into respiratory tract Status: Acute Assessment & Plan: Patient on O2 and IV antibiotics, no respiratory distress (2) Dysphasia Status: Acute Assessment & Plan: Patient just returned from swallow study results pending (3) Palliative care encounter Assessment & Plan: Unable to discuss goals of care at this time as patient has altered mental status, family unable to come to the hospital until later this evening We will follow-up with family and patient during this hospitalization and assist in any way I can with decision-making regarding feeding tube and further plan of care (4) Hypoxia Status: Acute Assessment & Plan: Improved with O2 and neb treatments (5) Pneumonia Status: Acute Assessment & Plan: Likely due to recurrent aspiration, await results of swallow study. Continue IV antibiotics and neb treatments (6) Odontoid fracture Status: Chronic Assessment & Plan: Patient was rigid c-collar in place, patient denies any pain associated with fracture. Counseling and Coordination Total time spent 55 minutes with greater than 50% of the time at bedside and on the phone with patient's family
[2017-05-18] VITALS (7 sets, daily range): BP systolic 134–154; BP diastolic 83–102; PULSE 91–103; TEMP 36.1–36.9; O2SAT 92–96
[2017-05-18] MEDS: METOPROLOL TARTRATE 1 MG/ML VIAL IV. SCH ×4 (02:24→20:23)
[2017-05-18] MEDS: SODIUM CHLORIDE 0.9% 1000ML 1,000 ML IV SCH ×2 (04:15→15:30)
[2017-05-18] MEDS: ACETAMINOPHEN IV 650 MG in EMPTY BAG 0 ML IV PRN (04:49)
[2017-05-18] MEDS: HEPARIN SOD 5000 UNIT/0.5 ML CARP SQ SCH ×3 (05:22→21:32)
[2017-05-18 06:23] LABS: HEMATOCRIT 33.5 % (42-52); HEMOGLOBIN 10.7 g/dL (14.0-18.0); MEAN CELL VOLUME 90.8 fL (80-100); MEAN CORPUSCULAR HGB CONC 31.9 g/dl (32-36); MEAN PLATELET VOLUME 8.9 fL (7.4-10.4); PLATELET COUNT 363 K/uL (130-400); RED CELL DISTRIBUTION WIDTH CV 14.8 % (11.5-14.5); WHITE BLOOD COUNT 10.37 K/uL (4.8-10.8)
[2017-05-18 07:00] LABS: CALCIUM 8.5 mg/dl (8.5-10.1); CREATININE 0.92 mg/dl (0.60-1.40); POTASSIUM 3.7 mmol/L (3.5-5.1)
[2017-05-18] MEDS: INSULIN ASPART 100 UNITS/ML 3 ML PEN SC SCH ×2 (07:00→11:00)
[2017-05-18] MEDS: INSULIN GLARGINE SOLOSTAR 100 UNITS/ML 3 ML PEN SC SCH (08:12)
[2017-05-18] MEDS: PIPERACILL/TAZOBAC IV 3.375 GM in DEXTROSE 5% 100ML 100 ML IV SCH ×3 (08:16→23:39)
[2017-05-18] MEDS: ASPIRIN 300 MG SUPP PR SCH (08:19)
[2017-05-18] MEDS: THIAMINE HCL INJ 100 MG in SYRINGE 9 ML IV SCH (08:39)
--- NOTE | 2017-05-18 09:00 | Progress Note ---
Subjective Date of Service: May 18, 2017. Subjective Pt evaluation today including: conversation w/ patient, physical exam, lab review, review of studies, conversation w/ business analysis consultant, review of inpatient medication list Saw/examined the patient in room 210 last evening, I spoke with the son and about patient's condition They are receptive to hear about hospice, but have not decided on goals of treatment yet I saw patient this morning, he is more lethargic, but arouses to stimuli answers some questions, tells me has some back pain, but he does not want to get out of bed denies shortness of breath/chest pain/palpitations Problem List Medical Problems: (1) Dens fracture Status: Acute (2) Elevated troponin Status: Acute (3) Hypoxia Status: Acute (4) Pneumonia Status: Acute (5) Syncope Status: Acute Review of Systems Respiratory: + cough, + sputum, No wheezing, No shortness of breath, No dyspnea on exertion Cardiac: No chest pain, No palpitations Musculoskeletal: + see HPI, + joint pain Medications Current Inpatient Medications Medications (Trade) Dose Ordered Sig/Rc Route Start Time Stop Time Status Last Admin Dose Admin Heparin Sodium (Porcine) (Heparin Sq 5000 Unit/0.5ml) 5,000 unit Q8 SQ 05/16/17 22:00 06/15/17 21:59 05/18/17 05:22 5,000 UNIT Acetaminophen (Tylenol Tab) 650 mg Q4H PRN PO 05/16/17 12:30 06/15/17 12:29 Ondansetron HCl (Zofran Inj) 4 mg Q6H PRN IV 05/16/17 12:30 06/15/17 12:29 Nitroglycerin (Nitrostat Tab) 0.4 mg UD PRN SL 05/16/17 12:30 06/15/17 12:29 Metoprolol Tartrate (Lopressor Iv) 5 mg Q6H IV. 05/16/17 20:00 06/15/17 19:59 05/18/17 08:19 5 MG Miscellaneous Information (Consult Glycemic Management Pharmacy) 1 ea UD PRN N/A 05/16/17 13:41 06/15/17 13:40 Sodium Chloride 1,000 ml @ 80 mls/hr [id number] IV 05/16/17 13:15 06/15/17 13:14 05/18/17 04:15 80 MLS/HR Albuterol/ Ipratropium (Duoneb) 3 ml Q4R PRN INH 05/16/17 13:15 06/15/17 13:14 Miscellaneous Information (Consult) 1 ea UD PRN N/A 05/16/17 13:45 06/15/17 13:44 Aspirin (Aspirin Supp) 300 mg DAILY DC 05/17/17 09:00 06/16/17 08:59 05/18/17 08:19 300 MG Insulin Aspart (novoLOG ASPART) SLIDING SCALE If C... ACHS SC 05/16/17 16:00 06/15/17 15:59 05/17/17 08:11 1 UNITS Glucose (Glucose 40% Gel) 15-30 GRAMS 15 GRAMS... UD PRN PO 05/16/17 14:30 06/15/17 14:29 Glucose (Glucose Chew Tab) 4-8 Tablets 4 Tabl... UD PRN PO 05/16/17 14:30 06/15/17 14:29 Dextrose (Dextrose 50% 50ML Syringe) 25-50ML OF 50% DW IV FOR... UD PRN IV 05/16/17 14:30 06/15/17 14:29 Glucagon (Glucagon Inj) 1 mg UD PRN SQ 05/16/17 14:30 06/15/17 14:29 Piperacillin Sod/ Tazobactam Sod 3.375 gm/Dextrose 115 ml @ 28.75 mls/ hr Q8H IV 05/16/17 16:00 05/23/17 15:59 05/18/17 08:16 28.75 MLS/HR Thiamine HCl 100 mg/Syringe 10 ml @ 2 mls/min DAILY@0900 IV 05/17/17 09:00 06/16/17 08:59 05/18/17 08:39 2 MLS/MIN Acetaminophen 650 mg/Empty Bag 65 ml @ 260 mls/hr Q6H PRN IV 05/18/17 04:45 06/17/17 04:44 05/18/17 04:49 260 MLS/HR Fluconazole/ Sodium Chloride 100 mg/Prmx 50 ml @ 100 mls/hr DAILY IV 05/18/17 09:00 05/28/17 08:59 Objective Vital Signs Date Time Temp Pulse Resp B/P (MAP) Pulse Ox O2 Delivery O2 Flow Rate FiO2 05/18/17 08:19 103 148/86 05/18/17 08:03 36.1 103 25 148/86 (106) 94 Nasal Cannula 2.0 05/18/17 04:37 36.4 97 16 139/102 (114) 94 Nasal Cannula 05/18/17 04:00 Nasal Cannula 3.0 05/18/17 02:24 107 05/18/17 00:05 Nasal Cannula 3.0 05/17/17 23:57 36.4 97 16 125/84 (98) 99 Nasal Cannula 3.0 05/17/17 20:49 98 144/89 05/17/17 20:00 96 Nasal Cannula 3.0 05/17/17 16:01 36.8 93 20 149/76 (100) 96 Nasal Cannula 3.0 05/17/17 16:00 90 Nasal Cannula 3.0 05/17/17 14:37 106 138/91 05/17/17 12:01 Nasal Cannula 3.0 05/17/17 11:58 36.3 115 22 138/74 (95) 90 Nasal Cannula 3.0 Physical Exam General Appearance: no apparent distress Respiratory/Chest: no respiratory distress, no accessory muscle use Cardiovascular: regular rate, rhythm, no edema, no murmur Extremities: normal range of motion, non-tender, normal inspection, no pedal edema, no calf tenderness Neurologic/Psychiatric: no motor/sensory deficits, alert, normal mood/affect Laboratory Results Last 24 Hours Test 05/17/17 11:19 05/17/17 16:50 05/17/17 20:51 05/18/17 05:58 Bedside Glucose 146 mg/dl 149 mg/dl 104 mg/dl White Blood Count 10.37 K/uL Red Blood Count 3.69 M/uL Hemoglobin 10.7 g/dL Hematocrit 33.5 % Mean Corpuscular Volume 90.8 fL Mean Corpuscular Hemoglobin 29.0 pg Mean Corpuscular Hemoglobin Concent 31.9 g/dl RDW Standard Deviation 48.0 fL RDW Coefficient of Variation 14.8 % Platelet Count 363 K/uL Mean Platelet Volume 8.9 fL Sodium Level 138 mmol/L Potassium Level 3.7 mmol/L Chloride Level 107 mmol/L Carbon Dioxide Level 27 mmol/L Anion Gap 4.0 mmol/L Blood Urea Nitrogen 23 mg/dl Creatinine 0.92 mg/dl Est Creatinine Clear Calc Drug Dose 38.2 ml/min Estimated GFR () 85.8 Estimated GFR (Non- 74.0 BUN/Creatinine Ratio 25.0 Random Glucose 62 mg/dl Calcium Level 8.5 mg/dl Test 05/18/17 06:38 Bedside Glucose 71 mg/dl Assessment and Plan This is an 86 year old male with a past medical history of recurrent dysphagia and aspiration pneumonia, type 2 odontoid fracture in a cervical collar, CAD s/ p CABG, atrial fibrillation, DM2, HLD, CKD stage 2, anemia of chronic disease, PVD, baseline dementia, hx. 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 Acute Hypoxic Respiratory Failure and Sepsis secondary to Recurrent Aspiration Pneumonia Chronic Dysphagia 05/18 - patient continues to have a productive cough - more lethargic today, no improvement clinically - plan to continue talking with patient and family regarding hospice - palliative care consulted - in the meantime, continue IV abx. - PEG tube discussed, and if that is the option, we will have to transfer to [facility] 05/17 - patient with chronic dysphagia issues, has had recurrent aspiration pneumonia - was at [facility], became tachypneic, tachycardic and hypoxic - presented here and subsequently found to have aspiration pneumonia - started on Vanco + Zosyn; will d/c Vanc at this time, continue Zosyn for aspiration - patient has had chronic dysphagia issues; was on mechanical soft and then pureed diet - cervical collar is making it more difficult for the patient; as per family member, he is using straws, which he likely should not do - will consult speech therapy; will need thickened liquids with possible pureed diet - previous discussed PEG tube; he did not want it during previous admission - I spoke to the patient today (05/17) and still feels he does not want it - will consult palliative care - patient should be made hospice at this time, if agreeable - if PEG tube needs to be placed, will need to transfer to [place] for interventional radiology Type 2 ID Hx. of CAD - patient with elevated troponin levels - likely due to increased demand from above as well as tachycardia from A. Fib - resting echo - not a good study, replacement valve functioning well - not on IV heparin, will treat underlying infection, hypoxia and tachycardia - continue aspirin suppository and IV Lopressor A. Fib with RVR - intermittently rate controlled - on IV b-gustavo; not on PO medications; not on a Cardizem drip DM2 - glycemic control pharmacy consulted DVT ppx - subq heparin FULL CODE
--- NOTE | 2017-05-18 09:32 | Clinical Documentation Query ---
AUGUSTINE Waters : CLINICAL DOCUMENTATION QUERY Patient is an 86 year old male admitted for sepsis secondary to aspiration pneumonia. BMI noted to be 16.8 kg/m*m. In order to capture this clinical information, an associated clinical diagnosis must accompany this information. As appropriate, consider documentation as suggested below. Thank you. In your clinical opinion is this patient being managed for: ( X ) Underweight, BMI 16.8 kg/m*m ( ) Not Agree ( ) Other explanation of clinical findings (Please Explain) ( ) Unable to determine (Please Define) ( ) Need to Discuss The medical record reflects the following clinical findings, treatment, and risk factors. Clinical Indicators: As above Treatment: New Order Clerk consultation Risk Factors: Dysphagia Please clarify and document your clinical opinion in the progress notes and discharge summary. Terms such as "probable", "suspected", "likely", "questionable", "possible", or "still to be ruled out" are acceptable. IF IN AGREEMENT, YOU MUST DOCUMENT ABOVE DIAGNOSTIC STATEMENT IN DAILY PROGRESS NOTES AND DISCHARGE SUMMARY. This document is not part of the patient's record. Thank You, Willem Quintana, RN [phone]
[2017-05-18] MEDS: FLUCONAZOLE / NSS 100 MG in PREMIXED NSS 50 ML IV SCH (11:09)
[2017-05-18] MEDS ORDERED: VANCOMYCIN TROUGH ONE (11:30)
[2017-05-18] MEDS: DEXTROSE 50% 50 ML SYR IV PRN ×2 (11:47→18:26)
--- NOTE | 2017-05-18 13:20 | Pharmacy Progress Note ---
Pharmacy Glycemic Sign Off Nt Date of Service May 18, 2017. Assessment & Plan ASSESSMENT: * Pharmacy was consulted by Tk LA on 05/16/17 for glycemic control and to write orders per [facility] inpatient glycemic control protocol. * Patient has been receiving 0-6 units of insulin per day for adequate glycemic control * BSGs over the past 24 hours: 170, 146, 149, 104, 71, 57 mg/dl * Insulin regimen has not been changed since admission * Patient experienced hypoglycemia (BSG 57 mg/dL) around lunch today despite last dose of insulin being > 24 hours prior. * Discussed patient with hospitalist. Insulin will be discontinued due to minimal use and hypoglycemia. If major changes to care plan occur, pharmacy is happy to be re-consulted. * Please see recommendations for outpatient antidiabetic regimen below. PLAN FOR INPATIENT GLYCEMIC CONTROL: * Discontinue both basal and bolus insulin * Pharmacy is signing off of glycemic consult and will no longer be making adjustments to inpatient regimen. Please feel free to re-consult if needed. Thank you. DISCHARGE RECOMMENDATIONS: * A1c unknown - A1c ordered per protocol was cancelled by provider * Discharge regimen will depend on care plan (patient is palliative consult, family decisions pending)
--- NOTE | 2017-05-18 16:29 | Palliative Care Progress Note ---
Palliative Care Progress Note Date of Service May 18, 2017. Subjective Pt evaluation today including: conversation w/ family, physical exam, chart review, conversation w/ [employer] consultant Pain: None PO Intake: Poor Voiding: incontinence Patient is asleep, did not arouse to voice or touch. Spoke with son by phone. They have decided against a G-tube, son interested in having patient return to [facility] with hospice care. Notified case management to make hospice referral. Review of Systems Unable to obtain, patient did not respond to voice or touch Objective Vital Signs Date Time Temp Pulse Resp B/P (MAP) Pulse Ox O2 Delivery O2 Flow Rate FiO2 05/18/17 15:45 36.3 92 20 134/83 (100) 92 Nasal Cannula 3.0 05/18/17 13:24 103 154/96 05/18/17 12:16 36.9 101 154/96 (115) 93 Nasal Cannula 2.0 05/18/17 12:00 Nasal Cannula 3.0 05/18/17 08:19 103 148/86 05/18/17 08:03 36.1 103 25 148/86 (106) 94 Nasal Cannula 2.0 05/18/17 08:00 Nasal Cannula 3.0 05/18/17 04:37 36.4 97 16 139/102 (114) 94 Nasal Cannula 05/18/17 04:00 Nasal Cannula 3.0 05/18/17 02:24 107 05/18/17 00:05 Nasal Cannula 3.0 05/17/17 23:57 36.4 97 16 125/84 (98) 99 Nasal Cannula 3.0 05/17/17 20:49 98 144/89 05/17/17 20:00 96 Nasal Cannula 3.0 Physical Exam General Appearance: + pertinent finding (Patient appears comfortable, no respiratory distress) Respiratory/Chest: no respiratory distress Cardiovascular: + tachycardia Abdomen: + pertinent finding (Diminished bowel sounds) Extremities: no pedal edema Neurologic/Psychiatric: + pertinent finding (Did not respond to voice or touch) Skin: warm/dry Laboratory Results Last 24 Hours Test 05/17/17 16:50 05/17/17 20:51 05/18/17 05:58 05/18/17 06:38 Bedside Glucose 149 mg/dl 104 mg/dl 71 mg/dl White Blood Count 10.37 K/uL Red Blood Count 3.69 M/uL Hemoglobin 10.7 g/dL Hematocrit 33.5 % Mean Corpuscular Volume 90.8 fL Mean Corpuscular Hemoglobin 29.0 pg Mean Corpuscular Hemoglobin Concent 31.9 g/dl RDW Standard Deviation 48.0 fL RDW Coefficient of Variation 14.8 % Platelet Count 363 K/uL Mean Platelet Volume 8.9 fL Sodium Level 138 mmol/L Potassium Level 3.7 mmol/L Chloride Level 107 mmol/L Carbon Dioxide Level 27 mmol/L Anion Gap 4.0 mmol/L Blood Urea Nitrogen 23 mg/dl Creatinine 0.92 mg/dl Est Creatinine Clear Calc Drug Dose 38.2 ml/min Estimated GFR () 85.8 Estimated GFR (Non- 74.0 BUN/Creatinine Ratio 25.0 Random Glucose 62 mg/dl Calcium Level 8.5 mg/dl Test 05/18/17 11:34 05/18/17 11:36 05/18/17 12:02 Bedside Glucose 57 mg/dl 67 mg/dl 108 mg/dl Assessment and Plan (1) Aspiration into respiratory tract Status: Acute Assessment & Plan: Patient improving clinically, still on IV antibiotics (2) Dysphasia Status: Acute Assessment & Plan: Video swallow showed silent aspiration with residuals, with all consistencies. Patient's plan is to return to [facility] under hospice care (3) Palliative care encounter Assessment & Plan: Contacted son, left message for son to call back, to discuss CODE STATUS. We will also plan to complete a POLST form if family can meet at bedside. (4) Hypoxia Status: Acute Assessment & Plan: Improved, patient still requiring O2 (5) Pneumonia Status: Acute Assessment & Plan: On IV antibiotics, aspiration pneumonia (6) Odontoid fracture Status: Chronic Assessment & Plan: Patient with rigid c-collar in place, no pain Palliative Performance Scale: 40 % Discharge planning: other (Return to [facility] under hospice care) Counseling and Coordination Total time 25 minutes with greater than 50% of the time discussing options with son by phone and evaluating patient.
[2017-05-18] MEDS ORDERED: GLUCOSE 40% GEL 15 GM TUBE PO PRN (18:30)
[2017-05-18] MEDS ORDERED: GLUCOSE 10 TABS/TUBE PO PRN (18:30)
[2017-05-18] MEDS ORDERED: DEXTROSE 50% 50 ML SYR IV PRN (18:30)
[2017-05-18] MEDS ORDERED: GLUCAGON FOR INJ 1 MG VIAL SQ PRN (18:30)
[2017-05-18] MEDS: D5W AND NSS 1,000 ML IV SCH (18:33)
[2017-05-19] VITALS (8 sets, daily range): BP systolic 127–158; BP diastolic 79–87; PULSE 85–107; TEMP 36.5–36.7; O2SAT 96–97
[2017-05-19] MEDS: METOPROLOL TARTRATE 1 MG/ML VIAL IV. SCH ×3 (02:22→14:21)
[2017-05-19] MEDS: D5W AND NSS 1,000 ML IV SCH (02:40)
[2017-05-19] MEDS: HEPARIN SOD 5000 UNIT/0.5 ML CARP SQ SCH ×2 (06:10→14:30)
[2017-05-19 06:29] LABS: HEMOGLOBIN 9.7 g/dL (14.0-18.0); MEAN CELL VOLUME 91.5 fL (80-100); MEAN CORPUSCULAR HEMOGLOBIN 29.6 pg (25-34); MEAN CORPUSCULAR HGB CONC 32.3 g/dl (32-36); PLATELET COUNT 297 K/uL (130-400); RED CELL DISTRIBUTION WIDTH CV 14.9 % (11.5-14.5); RED CELL DISTRIBUTION WIDTH SD 50.1 fL (36.4-46.3); WHITE BLOOD COUNT 7.38 K/uL (4.8-10.8)
[2017-05-19 07:03] LABS: CALCIUM 7.8 mg/dl (8.5-10.1); CREATININE 0.83 mg/dl (0.60-1.40); POTASSIUM 3.2 mmol/L (3.5-5.1)
[2017-05-19] MEDS ORDERED: POTASSIUM CHLR 10 MEQ / WTR 10 MEQ in PREMIXED WATER 100 ML IV STA (07:15)
[2017-05-19] MEDS: PIPERACILL/TAZOBAC IV 3.375 GM in DEXTROSE 5% 100ML 100 ML IV SCH ×2 (09:16→18:08)
[2017-05-19] MEDS: ASPIRIN 300 MG SUPP PR SCH (09:16)
--- NOTE | 2017-05-19 11:51 | Progress Note ---
Subjective Date of Service: May 19, 2017. Subjective Pt evaluation today including: conversation w/ patient, physical exam, lab review, review of studies, review of inpatient medication list Saw/examined the patient in room 210 He's lethargic and tired today Difficult to arouse, but does wake to tactile stimuli/sternal rub Difficult to obtain any meaningful history/ROS Son and decided on hospice at [facility] today. Problem List Medical Problems: (1) Dens fracture Status: Acute (2) Elevated troponin Status: Acute (3) Hypoxia Status: Acute (4) Pneumonia Status: Acute (5) Syncope Status: Acute Medications Current Inpatient Medications Medications (Trade) Dose Ordered Sig/Rc Route Start Time Stop Time Status Last Admin Dose Admin Heparin Sodium (Porcine) (Heparin Sq 5000 Unit/0.5ml) 5,000 unit Q8 SQ 05/16/17 22:00 06/15/17 21:59 05/19/17 06:10 5,000 UNIT Acetaminophen (Tylenol Tab) 650 mg Q4H PRN PO 05/16/17 12:30 06/15/17 12:29 Ondansetron HCl (Zofran Inj) 4 mg Q6H PRN IV 05/16/17 12:30 06/15/17 12:29 Nitroglycerin (Nitrostat Tab) 0.4 mg UD PRN SL 05/16/17 12:30 06/15/17 12:29 Metoprolol Tartrate (Lopressor Iv) 5 mg Q6H IV. 05/16/17 20:00 06/15/17 19:59 05/19/17 07:40 5 MG Albuterol/ Ipratropium (Duoneb) 3 ml Q4R PRN INH 05/16/17 13:15 06/15/17 13:14 Miscellaneous Information (Consult) 1 ea UD PRN N/A 05/16/17 13:45 06/15/17 13:44 Aspirin (Aspirin Supp) 300 mg DAILY NV 05/17/17 09:00 06/16/17 08:59 05/19/17 09:16 300 MG Dextrose (Dextrose 50% 50ML Syringe) 25-50ML OF 50% DW IV FOR... UD PRN IV 05/16/17 14:30 06/15/17 14:29 05/18/17 18:26 25 ML Piperacillin Sod/ Tazobactam Sod 3.375 gm/Dextrose 115 ml @ 28.75 mls/ hr Q8H IV 05/16/17 16:00 05/23/17 15:59 05/19/17 09:16 28.75 MLS/HR Thiamine HCl 100 mg/Syringe 10 ml @ 2 mls/min DAILY@0900 IV 05/17/17 09:00 06/16/17 08:59 05/18/17 08:39 2 MLS/MIN Acetaminophen 650 mg/Empty Bag 65 ml @ 260 mls/hr Q6H PRN IV 05/18/17 04:45 06/17/17 04:44 05/18/17 04:49 260 MLS/HR Fluconazole/ Sodium Chloride 100 mg/Prmx 50 ml @ 100 mls/hr DAILY IV 05/18/17 09:00 05/28/17 08:59 05/18/17 11:09 100 MLS/HR Glucose (Glucose 40% Gel) 15-30 GRAMS 15 GRAMS... UD PRN PO 05/18/17 18:30 06/17/17 18:29 Glucose (Glucose Chew Tab) 4-8 Tablets 4 Tabl... UD PRN PO 05/18/17 18:30 06/17/17 18:29 Dextrose (Dextrose 50% 50ML Syringe) 25-50ML OF 50% DW IV FOR... UD PRN IV 05/18/17 18:30 06/17/17 18:29 Glucagon (Glucagon Inj) 1 mg UD PRN SQ 05/18/17 18:30 06/17/17 18:29 Dextrose/Sodium Chloride 1,000 ml @ 100 mls/hr Q10H IV 05/18/17 18:30 06/17/17 18:29 05/19/17 02:40 100 MLS/HR Objective Vital Signs Date Time Temp Pulse Resp B/P (MAP) Pulse Ox O2 Delivery O2 Flow Rate FiO2 05/19/17 08:05 36.7 98 18 135/84 (101) 96 05/19/17 08:00 97 Nasal Cannula 3.0 05/19/17 07:40 88 135/84 05/19/17 04:00 Nasal Cannula 3.0 05/19/17 03:48 36.5 95 16 152/87 (108) 97 Nasal Cannula 2.0 05/19/17 02:22 101 4/13/18 23:50 36.7 91 17 140/86 (104) 96 Nasal Cannula 3.0 05/18/17 23:41 Nasal Cannula 3.0 05/18/17 20:23 104 137/96 05/18/17 20:12 36.6 92 14 137/96 (110) 05/18/17 20:01 Nasal Cannula 3.0 05/18/17 16:00 92 Nasal Cannula 3.0 05/18/17 15:45 36.3 92 20 134/83 (100) 92 Nasal Cannula 3.0 05/18/17 13:24 103 154/96 05/18/17 12:16 36.9 101 154/96 (115) 93 Nasal Cannula 2.0 05/18/17 12:00 Nasal Cannula 3.0 Physical Exam General Appearance: + cachetic, + thin, + pertinent finding (lethargic, chronically and acutely ill appearing) Respiratory/Chest: no respiratory distress, no accessory muscle use, + crackles Cardiovascular: + tachycardia, + irregularly irregular Extremities: normal inspection, no pedal edema Laboratory Results Last 24 Hours Test 05/18/17 12:02 05/18/17 18:06 05/18/17 18:49 05/18/17 23:56 Bedside Glucose 108 mg/dl 64 mg/dl 103 mg/dl 137 mg/dl Test 05/19/17 05:45 05/19/17 06:32 White Blood Count 7.38 K/uL Red Blood Count 3.28 M/uL Hemoglobin 9.7 g/dL Hematocrit 30.0 % Mean Corpuscular Volume 91.5 fL Mean Corpuscular Hemoglobin 29.6 pg Mean Corpuscular Hemoglobin Concent 32.3 g/dl RDW Standard Deviation 50.1 fL RDW Coefficient of Variation 14.9 % Platelet Count 297 K/uL Mean Platelet Volume 9.0 fL Sodium Level 142 mmol/L Potassium Level 3.2 mmol/L Chloride Level 109 mmol/L Carbon Dioxide Level 26 mmol/L Anion Gap 7.0 mmol/L Blood Urea Nitrogen 13 mg/dl Creatinine 0.83 mg/dl Est Creatinine Clear Calc Drug Dose 42.1 ml/min Estimated GFR () 91.1 Estimated GFR (Non- 78.6 BUN/Creatinine Ratio 15.3 Random Glucose 162 mg/dl Calcium Level 7.8 mg/dl Bedside Glucose 178 mg/dl Assessment and Plan This is an 86 year old male with a past medical history of recurrent dysphagia and aspiration pneumonia, type 2 odontoid fracture in a cervical collar, CAD s/ p CABG, atrial fibrillation, DM2, HLD, CKD stage 2, anemia of chronic disease, PVD, baseline dementia, hx. 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 Acute Hypoxic Respiratory Failure and Sepsis secondary to Recurrent Aspiration Pneumonia Chronic Dysphagia 05/19 - poor prognosis - appreciate palliative care input - son and has decided against a PEG tube - decided on DNR status and hospice at [facility] - will d/c to [facility] today 05/18 - patient continues to have a productive cough - more lethargic today, no improvement clinically - plan to continue talking with patient and family regarding hospice - palliative care consulted - in the meantime, continue IV abx. - PEG tube discussed, and if that is the option, we will have to transfer to [facility] 05/17 - patient with chronic dysphagia issues, has had recurrent aspiration pneumonia - was at [facility], became tachypneic, tachycardic and hypoxic - presented here and subsequently found to have aspiration pneumonia - started on Vanco + Zosyn; will d/c Vanc at this time, continue Zosyn for aspiration - patient has had chronic dysphagia issues; was on mechanical soft and then pureed diet - cervical collar is making it more difficult for the patient; as per family member, he is using straws, which he likely should not do - will consult speech therapy; will need thickened liquids with possible pureed diet - previous discussed PEG tube; he did not want it during previous admission - I spoke to the patient today (05/17) and still feels he does not want it - will consult palliative care - patient should be made hospice at this time, if agreeable - if PEG tube needs to be placed, will need to transfer to [place] for interventional radiology Type 2 ME Hx. of CAD - patient with elevated troponin levels - likely due to increased demand from above as well as tachycardia from A. Fib - resting echo - not a good study, replacement valve functioning well - not on IV heparin, will treat underlying infection, hypoxia and tachycardia - continue aspirin suppository and IV Lopressor A. Fib with RVR - intermittently rate controlled - on IV b-gustavo; not on PO medications; not on a Cardizem drip DM2 - glycemic control pharmacy consulted DVT ppx - subq heparin FULL CODE Discharge planning: other (Return to [facility] under hospice care)
[2017-05-19] MEDS ORDERED: OXYC10SO SL (12:00)
[2017-05-19] MEDS ORDERED: ATROPO SL (12:04)
[2017-05-19] MEDS ORDERED: SCOP1.5D2 TD (12:04)
--- NOTE | 2017-05-19 12:15 | Discharge Instructions ---
Discharge Instructions Date of Service May 19, 2017. Admission Reason for Admission: Aspiration Pneumonia Discharge Discharge Diagnosis / Problem: Chronic Dysphagia, Aspiration Pneumonia Discharge Goals Goal(s): Decrease discomfort, Improve function, Diagnostic testing, Therapeutic intervention Activity Recommendations Activity Limitations: resume your previous activity . Instructions / Follow-Up Instructions / Follow-Up Patient with chronic dysphagia, recurrent aspiration * palliative consulted - patient will be d/c'd to hospice at [facility] * Plan to d/c with Roxanol SL, scopolamine patch and SL atropine drops Current Hospital Diet Patient's current hospital diet: Discharge Diet Recommended Diet: Regular Diet (comfort feeds) Diet Texture: Pureed (blended smooth) Liquid Consistency: Iaeger Thick Pending Studies Studies pending at discharge: no Medical Emergencies . Who to Call and When: Medical Emergencies: If at any time you feel your situation is an emergency, please call 911 immediately. . Non-Emergent Contact Non-Emergency issues call your: Primary Care Provider . . "Provider Documentation" section prepared by Radha Oliver. .
--- NOTE | 2017-05-19 12:17 | Discharge Summary ---
Discharge Summary Date of Service May 19, 2017. Discharge Summary Admission Date: May 16, 2017 at 12:26 Discharge Date: May 19, 2017 Discharge Disposition: alf facility Principal Diagnosis: Chronic Dysphagia recurrent Aspiration Pneumonia Atrial Fibrillation CAD Medication Reconciliation New Medications: Atropine Sulfate (Ophthalmic) (Atropine Sulfate Oph) 1 % Oin 2 DROPS SL Q6 for 14 Days, % Oxycodone Hcl (Roxycodone Oral Soln) 5 Mg/5 Ml Jacqui 5 MG SL Q4 for 10 Days, #300 ML Scopolamine (Transderm-Scop) 1 Mg/3 Days Dis 1 MG TD Q72H for 14 Days, PATCH Continued Medications: Acetaminophen (Acetaminophen) 160 Mg/5 Ml Radha 20.3 ML PO Q6 PRN for Pain Bisacodyl (Bisacodyl) 10 Mg Sup 10 MG RE DAILY PRN for Constipation Docusate Sodium (Stool Softener) 100 Mg Cap 100 MG PO BID Ipratropium-Albuterol (Duoneb) 3 Ml Nebu 1 TREATMENT INH Q6H PRN for Shortness of Breath, INHA Magnesium Hydroxide (Milk Of Magnesia) 30 Ml Susp 30 ML PO DAILY PRN for Constipation, ML Melatonin (Kp Melatonin) 3 Mg Tab 3 MG PO HS Nystatin (Nystatin Cream) 90 Appln/30 Gm Cr 0 EXT BID, #15 GM APPLY TO AFFECTED AREA- Penis BID Ondansetron Hcl (Zofran) 8 Mg Tab 8 MG PO Q8 for Nausea or Vomiting, TAB Sodium Phosphates (Fleet Enema Six Pack) 1 Asha Asha 1 DOSE RE DAILY PRN for Constipation Discontinued Medications: Aspirin (Aspirin Ec) 81 Mg Tab 81 MG PO QAM Diltiazem HCl (Diltiazem Cd) 120 Mg Capcr 120 MG PO QAM for 30 Days, #30 CAP Duloxetine HCl (Cymbalta) 30 Mg Cap 30 MG PO QAM for 30 Days, #30 CAP 2 Refills Ergocalciferol (Vitamin D 55176 Unit) 50,000 Unit Cap 48987 INTERUNIT PO Q7D@1200 for 90 Days, #12 CAP Ferrous Sulfate (Ferrous Sulfate) 325 Mg Tab 325 MG PO BIDM for 30 Days, #60 TAB Hydrocodone/Acetaminophen 5MG/325MG ([place] 5MG/325MG) Tab 1 TABLET PO Q6 PRN for Pain, TAB PRN PAIN Insulin Aspart (Novolog) 100 Units/Ml Inj 8 UNITS SQ TIDM Insulin Glargine (Lantus) 100 Unit/Ml Inj 16 UNITS SC QPM, VIAL Iron-Vitamin C (Vitron-C) 1 Tab Tab 1 TAB PO BID DOSE 65-125MG. Metoprolol Tartrate (Lopressor) 25 Mg Tab 25 MG PO BID, TAB Admission Information HPI (per Admitting provider): 86-year-old male who presents to the ED with shortness of breath and cough. Approximately 6 weeks ago patient suffered a fall out of bed and developed a C2 odontoid fracture. Patient was managed at [facility]. Patient was admitted to [facility] 05/01 through 05/10 for aspiration pneumonia. Patient was discharged to [facility]. He was discharged on Augmentin and has since completed the course. Patient was evaluated by speech and GI during his previous admission. Patient was placed on a modified diet. PEG tube was also discussed however patient declined. Since yesterday, patient developed increasing shortness of breath and cough. Patient has poor insight and history is limited from him. Per review of records sent from [facility], patient had increased oxygen requirements. He did not improve with supplemental O2 and nebulized treatments. Patient was then transferred to the ED for further evaluation. In the ED, patient was tachycardic in the 110's. He was hypoxic on room air at 87%, this improved with oxygen 3 L via nasal cannula. CXR shows bibasilar consolidations consistent with aspiration pneumonia. EKG shows ST elevations in the anterolateral leads with T-wave inversions in the inferior leads. Troponin is elevated at 0.136. Patient was evaluated by chief design drafter, Dr. Villanueva, in the ED who does not feel this represents ACS but rather demand ischemia from acute illness. Patient was given IVF, IV Zosyn, and IV vancomycin. Physical Exam (per Admitting): General Appearance: no apparent distress, + thin, + pertinent finding ( Chronically ill-appearing) Head: normocephalic, atraumatic Eyes: normal inspection, EOMI, sclerae normal ENT: hearing grossly normal, + pertinent finding (Mucous membranes dry) Neck: + pertinent finding (Cervical spine collar in place) Respiratory/Chest: no respiratory distress, + decreased breath sounds ( Bilateral bases) Cardiovascular: no edema, normal peripheral pulses, + irregularly irregular (Heart rate in the 110's) Abdomen/GI: normal bowel sounds, non tender, soft, no organomegaly Extremities/Musculoskelatal: normal inspection, no calf tenderness, normal capillary refill Neurologic/Psych: no motor/sensory deficits, alert, + disoriented (To place , time, situation) Skin: normal color, warm/dry Hospital Course This is an 86 year old male with a past medical history of recurrent dysphagia and aspiration pneumonia, type 2 odontoid fracture in a cervical collar, CAD s/ p CABG, atrial fibrillation, DM2, HLD, CKD stage 2, anemia of chronic disease, PVD, baseline dementia, hx. 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 Acute Hypoxic Respiratory Failure and Sepsis secondary to Recurrent Aspiration Pneumonia Chronic Dysphagia 05/19 - poor prognosis - appreciate palliative care input - son and has decided against a PEG tube - decided on DNR status and hospice at [facility] - will d/c to [facility] today 05/18 - patient continues to have a productive cough - more lethargic today, no improvement clinically - plan to continue talking with patient and family regarding hospice - palliative care consulted - in the meantime, continue IV abx. - PEG tube discussed, and if that is the option, we will have to transfer to [facility] 05/17 - patient with chronic dysphagia issues, has had recurrent aspiration pneumonia - was at [facility], became tachypneic, tachycardic and hypoxic - presented here and subsequently found to have aspiration pneumonia - started on Vanco + Zosyn; will d/c Vanc at this time, continue Zosyn for aspiration - patient has had chronic dysphagia issues; was on mechanical soft and then pureed diet - cervical collar is making it more difficult for the patient; as per family member, he is using straws, which he likely should not do - will consult speech therapy; will need thickened liquids with possible pureed diet - previous discussed PEG tube; he did not want it during previous admission - I spoke to the patient today (05/17) and still feels he does not want it - will consult palliative care - patient should be made hospice at this time, if agreeable - if PEG tube needs to be placed, will need to transfer to [place] for interventional radiology Type 2 AL Hx. of CAD - patient with elevated troponin levels - likely due to increased demand from above as well as tachycardia from A. Fib - resting echo - not a good study, replacement valve functioning well - not on IV heparin, will treat underlying infection, hypoxia and tachycardia - continue aspirin suppository and IV Lopressor A. Fib with RVR - intermittently rate controlled - on IV b-gustavo; not on PO medications; not on a Cardizem drip DM2 - glycemic control pharmacy consulted DVT ppx - subq heparin FULL CODE Discharge planning: other (Return to [facility] under hospice care) Total time spent on discharge = 45 minutes This includes examination of the patient, discharge planning, medication reconciliation, and communication with other providers. Discharge Instructions Patient with chronic dysphagia, recurrent aspiration * palliative consulted - patient will be d/c'd to hospice at [facility] * Plan to d/c with Roxanol SL, scopolamine patch and SL atropine drops
[2017-05-19] MEDS: FLUCONAZOLE / NSS 100 MG in PREMIXED NSS 50 ML IV SCH (12:31)
[2017-05-19] MEDS: THIAMINE HCL INJ 100 MG in SYRINGE 9 ML IV SCH (12:31)
[2017-05-19] MEDS: ACETAMINOPHEN IV 650 MG in EMPTY BAG 0 ML IV PRN (12:32)
== END 2017-05-19 19:12 | DRG 871 ==
LOC: EDBD 09:32 → C.EDB 09:34 → C.2E 12:26 → ENRESERV 14:18
PROVIDERS: ADMIT Internal Medicine; ATTEND Family Medicine
DX: A41.9 Sepsis, unspecified organism (principal); J96.01 Acute respiratory failure with hypoxia; J69.0 Pneumonitis due to inhalation of food and vomit; I21.A1 Myocardial infarction type 2; D63.1 Anemia in chronic kidney disease; I48.2 Chronic atrial fibrillation; R13.10 Dysphagia, unspecified; N18.2 Chronic kidney disease, stage 2 (mild); E11.22 Type 2 diabetes mellitus with diabetic chronic kidney disease; E11.40 Type 2 diabetes mellitus with diabetic neuropathy, unspecified; E78.5 Hyperlipidemia, unspecified; I12.9 Hypertensive chronic kidney disease with stage 1 through stage 4 chronic kidney disease, or unspecified chronic kidney disease; I25.10 Atherosclerotic heart disease of native coronary artery without angina pectoris; Z51.5 Encounter for palliative care; Z79.4 Long term (current) use of insulin; Z79.82 Long term (current) use of aspirin; Z79.899 Other long term (current) drug therapy; Z91.81 History of falling; Z95.1 Presence of aortocoronary bypass graft; Z95.2 Presence of prosthetic heart valve; Z87.891 Personal history of nicotine dependence